=== PATIENT | female | born 1945 | race Caucasian/White ===

== ENCOUNTER → 2018-05-04 02:26 | Outpatient (CLI) | payer MEDICARE, SELFPAY ==
[2018-05-04 11:21] LABS: HCT 41.9 % (36.0-46.0); HGB 13.9 g/dL (12.0-15.5); Mean Corp. HGB Concentration 33.2 g/dL (32.0-36.0); Mean Corpuscular Volume 90.3 fL (80-95); Mean Platelet Volume 10.6 fL (8.0-11.0); Platelet Count 179 x1000/uL (130-400); RBC 4.64 m/cumm (4.00-5.20); RBC Distribution Width 12.6 % (11.7-14.6); White Blood Cell Count 4.83 k/cumm (4.4-10.8)
[2018-05-04 11:33] LABS: Hemoglobin A1C 6.7 % (4.5-6.2)
[2018-05-04 11:41] LABS: ALT 28 U/L (12-78); AST 24 U/L (15-37); Albumin 3.5 g/dL (3.4-5.0); Alkaline Phosphatase 100 U/L (46-116); Anion Gap 9.3 mmol/L (3-11); BUN 20 mg/dL (7-18); Bilirubin, Total 0.6 mg/dL (0.2-1.0); CO2 27.7 mmol/L (21.0-32.0); CREATININE 1.26 mg/dL (0.55-1.02); Calcium 8.7 mg/dL (8.5-10.1); Chloride 105 mmol/L (98-107); Cholesterol 223 mg/dL (50-200); Estimated GFR 41.74 (mL/min/1.73m2); Glucose 113 mg/dL (70-100); HDL Cholesterol 36 mg/dL (40-60); LDL CHOLESTEROL 172 mg/dL (<100); Potassium 3.8 mmol/L (3.5-5.1); Sodium 142 mmol/L (136-145); Total Protein 6.8 g/dL (6.4-8.2); Triglyceride 114 mg/dL (30-150)
== END ==
PROVIDERS: Family Medicine; PCP Family Medicine; Visit Provider Family Medicine
DX: E78.5 Hyperlipidemia, unspecified (principal); E11.9 Type 2 diabetes mellitus without complications; I10 Essential (primary) hypertension
CPT/HCPCS: 36415; 80053; 80061; 83721; 85027; 83036

== ENCOUNTER 2018-08-18 01:12 | Outpatient (CLI) | payer MEDICARE, SELFPAY ==
[2018-08-18 12:24] LABS: ALT 27 U/L (12-78); AST 21 U/L (15-37); Albumin 3.8 g/dL (3.4-5.0); Alkaline Phosphatase 88 U/L (46-116); Anion Gap 10.3 mmol/L (3-11); BUN 25 mg/dL (7-18); Bilirubin, Total 0.9 mg/dL (0.2-1.0); CO2 28.7 mmol/L (21.0-32.0); CREATININE 1.29 mg/dL (0.55-1.02); Calcium 9.1 mg/dL (8.5-10.1); Chloride 102 mmol/L (98-107); Cholesterol 123 mg/dL (50-200); Estimated GFR 40.62 (mL/min/1.73m2); Glucose 99 mg/dL (70-100); HDL Cholesterol 40 mg/dL (40-60); LDL CHOLESTEROL 70 mg/dL (<100); Potassium 3.7 mmol/L (3.5-5.1); Sodium 141 mmol/L (136-145); Total Protein 6.8 g/dL (6.4-8.2); Triglyceride 84 mg/dL (30-150)
[2018-08-18 12:31] LABS: Hemoglobin A1C 5.7 % (4.5-6.2)
[2018-08-18 12:47] LABS: COMMENT (LAB VIEW ONLY) 201.79 mg/dL; Microalb ug/mg Crea 5.1 ug/mg Cr
== END 2018-08-18 01:32 ==
PROVIDERS: PCP Family Medicine
DX: E11.9 Type 2 diabetes mellitus without complications (principal); E78.5 Hyperlipidemia, unspecified; I10 Essential (primary) hypertension
CPT/HCPCS: 36415; 80053; 80061; 83721; 82043; 82570; 83036

== ENCOUNTER → 2018-09-04 07:30 | Outpatient (BNVA) | payer MEDICARE, SELFPAY | PROVIDERS: PCP Family Medicine; Referring Provider Family Medicine; Visit Provider Surgery | DX: K82.9 Disease of gallbladder, unspecified (principal); I10 Essential (primary) hypertension; E11.9 Type 2 diabetes mellitus without complications; Z79.84 Long term (current) use of oral hypoglycemic drugs | CPT/HCPCS: 99212; 99213 ==

== ENCOUNTER 2018-09-10 00:58 | Outpatient (CLI) | payer MEDICARE, SELFPAY ==
--- NOTE | 2018-09-10 08:08 | DI.RAD_ITS ---
SYMPTOM/DIAGNOSIS: RUQ PAIN, GALLBLADDER PROBLEM K82.9 HEPATOBILIARY SCAN: The study was conducted according to the usual protocol with intravenous administration of 5.6 mCi Tc99m mebrofenin A recent ultrasound examination of this patient revealed gallbladder sludge and the possibility of small stones could also not be excluded and the patient was scanned without the use of CCK. The study reveals a normal liver. There is prompt appearance of the radio pharmaceutical in the biliary tree and gallbladder, and proximal and mid small bowel. SUMMARY: Normal hepatobiliary scan. This study essentially excludes the possibility of acute cholecystitis and there is nothing to suggest biliary obstruction on the study.
== END 2018-09-10 01:18 ==
PROVIDERS: PCP Family Medicine; Visit Provider Physical Therapy Assistant
DX: R10.11 Right upper quadrant pain (principal); K82.9 Disease of gallbladder, unspecified
CPT/HCPCS: 78227

== ENCOUNTER 2018-09-16 06:53 | Day surgery (SDC) | payer MEDICARE, SELFPAY ==
[2018-09-16 07:10] VITALS: BP 173/83; PULSE 58; RESP 16; TEMP 36.6; O2SAT 97
[2018-09-16] MEDS: Lactated Ringers 1,000 ML 30 ML IV (07:35)
--- NOTE | 2018-09-16 08:42 | STOM_PTH ---
PATIENT: Eileen Hernandez LOC: [facility] U#:[id number] AGE/SX: 72/F ROOM: RE09/16/[address]: Anurag Olmedo DO : 1945 BED: DIS: 09/16/2018 SPEC #: [id number] RECD: 09/16/18 12:55 STATUS: EMPERATRIZ CRAWLEY #: [id number] LIT: 09/16/18 08:[address]: Anurag Olmedo DEPT: Surgical Specimen RECD BY: Gwen Valderrama ENTERED: 09/16/18 12:55 SP TYPE: STOMACH OTHR DR: Kathy Ham MD Tissues: 1 - STOMACH BIOPSY 2 - ESOPHAGUS BIOPSY Procedures: GROSS AND MICRO LEVEL 4 IMMUNOPEROXIDASE STAIN MIB-1 IHC Semi Quantative % Comments: [id number]
[2018-09-16 09:15] VITALS: BP 151/63; PULSE 52; RESP 16; TEMP 36; O2SAT 99
--- NOTE | 2018-09-16 21:21 | ROE_ITS ---
Date of service: 09/16/18 Time of Service: 08:55 Operative Note DATE OF PROCEDURE: 09/16/18 PRE-OP DIAGNOSIS: RUQ abdominal pain POST-OP DIAGNOSIS: other (Gastritis) PROCEDURE: Esophagogastroduodenoscopy with biopsy by cold forceps SURGEON: Anurag Olmedo ANESTHESIA: MAC (Keon Barrientos CRNA; ASA 2 Mallampati class II) ESTIMATED BLOOD LOSS: 1 PATHOLOGY: other (1. Gastric antral biopsies 2. Biopsy of gastroesophageal junction) COMPLICATIONS: None Patient was transported to: same day Patient's condition: stable Indications: 72 y/o female with a history of a. fib and HTN presents with complaints that 3 weeks ago on Aug.17 she had severe nausea and vomiting with RUQ pain with right sided upper back/shoulder pain. She went to [facility] ER. At which time she was worked up for gall bladder disease. Since that time her symptoms have been well managed with Dramamine. She has not had any nausea or vomiting since that time. She continues to have RUQ discomfort. She denies fevers, chills or night sweats. She denies urinary symptoms. She has not noted any bowel habit changes to include diarrhea, constipation, melena or hematochezia. It was recommended she undergo EGD. The procedure was reviewed with her, and the risks discussed. All her questions were answered to her satisfaction, and consent was obtained to proceed with EGD Findings: On examining the upper gastrointestinal tract from the oropharynx to the third portion of the duodenum, there were inflammatory changes consistent with gastritis of the stomach. The GE junction also was a little irregular and biopsies were taken to rule out Aragon's. Also noted during the procedure was a fair amount of bile that it refluxed into the stomach. Procedure Description: The patient was brought to the procedure room. Monitoring for telemetry, end- tidal CO2, O2 saturation, blood pressure were applied. An appropriate timeout was taken reviewing the patient's identification, allergies, medications,and procedure. A bite was placed, and sedation was titrated for effect by the PUBLIC RELATIONS SUPERVISOR. An Olympus variable stiffness endoscope was advanced from the oropharynx to the third portion of the duodenum without difficulty. The scope was then withdrawn in circumferential manner from the duodenum back to the oropharynx. In performing withdrawal of the scope, the duodenum appeared grossly normal. The scope was withdrawn into the gastric antrum and retroflexed to examine the entire stomach. A large amount of bile was noted to have reflux into the stomach. There were inflammatory changes noted throughout the stomach particularly in the gastric antrum no specific ulcerations were seen. Biopsies were taken for the from the gastric antrum. The scope was then withdrawn to the GE junction which I measured at 34 cm The Z line was at 34 cm and appeared irregular. The irregularity was noncircumferential and did not extend beyond 3 cm and most did not extend beyond 1 cm. Four-quadrant biopsies were taken from the GE junction and submitted for pathology. I withdrew the scope through the remainder of the esophagus all which appear grossly normal. Scope was then withdrawn terminating the upper endoscopy. Plan: There is noted gastritis in the stomach with noted changes consistent with reflux into the esophagus, but I suspect that these are symptoms of her biliary colic, with stones noted on prior ultrasound from August. Recent HIDA scan showed no evidence of acute cholecystitis or biliary obstruction CCK was not performed so there is no ejection fraction measured. I will start her on oral ranitidine, but have discussed with her cholecystectomy given her symptoms ultrasound findings and today's findings I think she would benefit from cholecystectomy I reviewed the risk of the surgery with her and discussed the procedure itself all her questions were answered to her satisfaction she is been scheduled for a cholecystectomy on September 29.
--- NOTE | 2018-09-16 21:38 | W.PM.DSUDISC ---
Discharge Plan Disposition Patient Disposition: HOME Condition: Good Discharge Details Reason For Visit: Right upper quadrant abdominal pain Attending Provider: Anurag Olmedo Primary Care Provider: Kathy Ham Home Meds and New Rx's Prescriptions: Continued dimenhydrinate [Dramamine] 50 mg tablet 50 mg PO Q8H PRN (Reason: nausea and vomiting) Qty: 30 RF: 2 lisinopril-hydrochlorothiazide 20-25 mg tablet 0.5 tab PO DAILY RF: 0 aspirin [Aspirin Low-Strength] 81 MG tablet,chewable 81 mg PO DAILY RF: 0 atorvastatin 40 mg tablet 40 mg PO HS RF: 0 metformin 500 mg tablet 500 mg PO HS RF: 0 Discharge Instructions Instructions: Upper Endoscopy (DC) Stand Alone Forms: DSU Post EGD Instructions, Linda Weinstein (DSU) Activity:: Activity as Tolerated Diet:: As Tolerated Discharge Orders Discharge Orders: Discharge Order (Routine); Ordered 09/16/18 Ordered By: Anurag Olmedo Discharge Data Discharge Date/Time-TO BE ENTERED AT DEPARTURE: 09/16/18 09:15 DS: Diagnosis Discharge Diagnosis (1) Gallbladder Problem: Status: Acute
== END 2018-09-16 09:15 | disposition home or self-care (01) ==
PROVIDERS: PCP Family Medicine; Visit Provider Surgery
PROC: 0DJ68ZZ Inspection of Stomach, Via Natural or Artificial Opening Endoscopic (ICD-10-PCS; CPT 43235; principal; 2018-09-16 08:15)
DX: R10.11 Right upper quadrant pain (principal); K29.70 Gastritis, unspecified, without bleeding; B96.81 Helicobacter pylori [H. pylori] as the cause of diseases classified elsewhere; K21.0 Gastro-esophageal reflux disease with esophagitis; E11.9 Type 2 diabetes mellitus without complications; K21.9 Gastro-esophageal reflux disease without esophagitis; I10 Essential (primary) hypertension; Z79.84 Long term (current) use of oral hypoglycemic drugs
CPT/HCPCS: 43239; 88305; 88360; 88361

== ENCOUNTER 2018-11-30 12:12 | Outpatient (CLI) | payer MEDICARE, SELFPAY ==
--- NOTE | 2018-11-30 10:00 | DI.RAD_ITS ---
SYMPTOMS/DIAGNOSIS: PAIN MID THORACIC SPINE, NO TRAUMA, WEIGHT LOSS, M54.6 THORACIC SPINE: AP and lateral views. Comparison chest x-ray is 04/28/11. There is normal alignment of the thoracic spine. No acute fractures or subluxations are seen. Mild to moderate degenerative changes are seen in the thoracic spine with disc space narrowing and endplate osteophytes present. The findings are most marked in the mid thoracic spine. No acute fractures or subluxations are seen. IMPRESSION: Mild to moderate degenerative changes of the thoracic spine.
== END 2018-11-30 12:32 ==
PROVIDERS: PCP Family Medicine; Visit Provider Family Medicine
DX: M54.6 Pain in thoracic spine (principal); M47.814 Spondylosis without myelopathy or radiculopathy, thoracic region; R63.4 Abnormal weight loss
CPT/HCPCS: 72072

== ENCOUNTER 2019-01-25 11:33 | Outpatient (CLI) | payer MEDICARE, SELFPAY ==
[2019-01-25 13:41] LABS: ALT 29 U/L (12-78); AST 25 U/L (15-37); Albumin 3.6 g/dL (3.4-5.0); Alkaline Phosphatase 94 U/L (46-116); Anion Gap 12.4 mmol/L (3-11); BUN 19 mg/dL (7-18); Bilirubin, Total 0.7 mg/dL (0.2-1.0); CO2 25.6 mmol/L (21.0-32.0); CREATININE 1.23 mg/dL (0.55-1.02); Chloride 105 mmol/L (98-107); Glucose 95 mg/dL (70-100); Potassium 3.7 mmol/L (3.5-5.1); Sodium 143 mmol/L (136-145)
[2019-01-25 15:29] LABS: Prothrombin Time 10.3 sec (9.3-11.0)
== END 2019-01-25 11:53 ==
PROVIDERS: PCP Family Medicine; Visit Provider Family Medicine
DX: E11.9 Type 2 diabetes mellitus without complications (principal); I10 Essential (primary) hypertension; I48.0 Paroxysmal atrial fibrillation; Z79.01 Long term (current) use of anticoagulants
CPT/HCPCS: 36415; 80053; 83036; 85610

== ENCOUNTER 2019-01-29 02:18 | Outpatient (CLI) | payer MEDICARE, SELFPAY ==
[2019-01-29 16:40] LABS: Prothrombin Time 51.8 sec (9.3-11.0)
[2019-01-29 16:51] LABS: INR 5.1 (0.9-1.1)
== END 2019-01-29 02:38 ==
PROVIDERS: PCP Family Medicine; Visit Provider Family Medicine
DX: I48.91 Unspecified atrial fibrillation (principal); Z79.01 Long term (current) use of anticoagulants
CPT/HCPCS: 36415; 85610

== ENCOUNTER 2019-02-01 02:50 | Outpatient (CLI) | payer MEDICARE, SELFPAY ==
[2019-02-01 08:10] LABS: INR 3.8 (0.9-1.1); Prothrombin Time 38.4 sec (9.3-11.0)
== END 2019-02-01 03:10 ==
PROVIDERS: PCP Family Medicine; Visit Provider Family Medicine
DX: I48.91 Unspecified atrial fibrillation (principal); Z79.01 Long term (current) use of anticoagulants
CPT/HCPCS: 36415; 85610

== ENCOUNTER 2019-02-03 02:28 | Outpatient (CLI) | payer MEDICARE, SELFPAY ==
[2019-02-03 16:58] LABS: INR 1.7 (0.9-1.1); Prothrombin Time 17.2 sec (9.3-11.0)
== END 2019-02-03 02:48 ==
PROVIDERS: PCP Family Medicine; Visit Provider Family Medicine
DX: I48.91 Unspecified atrial fibrillation (principal); Z79.01 Long term (current) use of anticoagulants
CPT/HCPCS: 36415; 85610

== ENCOUNTER 2019-02-09 02:19 | Outpatient (CLI) | payer MEDICARE, SELFPAY ==
[2019-02-09 11:42] LABS: INR 1.1 (0.9-1.1); Prothrombin Time 10.9 sec (9.3-11.0)
== END 2019-02-09 02:39 ==
PROVIDERS: PCP Family Medicine; Visit Provider Family Medicine
DX: I48.91 Unspecified atrial fibrillation (principal); Z79.01 Long term (current) use of anticoagulants
CPT/HCPCS: 36415; 85610

== ENCOUNTER 2019-02-12 02:03 | Outpatient (CLI) | payer MEDICARE, SELFPAY ==
[2019-02-12 16:55] LABS: INR 1.1 (0.9-1.1); Prothrombin Time 10.6 sec (9.3-11.0)
== END 2019-02-12 02:23 ==
PROVIDERS: PCP Family Medicine; Visit Provider Family Medicine
DX: I48.91 Unspecified atrial fibrillation (principal); Z79.01 Long term (current) use of anticoagulants
CPT/HCPCS: 36415; 85610

== ENCOUNTER 2019-02-16 02:52 | Outpatient (CLI) | payer MEDICARE, SELFPAY ==
[2019-02-16 11:15] LABS: INR 1.1 (0.9-1.1); Prothrombin Time 10.5 sec (9.3-11.0)
== END 2019-02-16 03:12 ==
PROVIDERS: PCP Family Medicine; Visit Provider Family Medicine
DX: I48.91 Unspecified atrial fibrillation (principal); Z79.01 Long term (current) use of anticoagulants
CPT/HCPCS: 36415; 85610

== ENCOUNTER 2019-02-22 02:22 | Outpatient (CLI) | payer MEDICARE, SELFPAY ==
[2019-02-22 10:54] LABS: INR 2.8 (0.9-1.1); Prothrombin Time 28.7 sec (9.3-11.0)
== END 2019-02-22 02:42 ==
PROVIDERS: PCP Family Medicine; Visit Provider Family Medicine
DX: I48.91 Unspecified atrial fibrillation (principal); Z79.01 Long term (current) use of anticoagulants
CPT/HCPCS: 36415; 99203; 85610

== ENCOUNTER 2019-02-22 10:10 | Outpatient (CLI) | payer MEDICARE, SELFPAY ==
--- NOTE | 2019-02-22 10:09 | DI.RAD_ITS ---
SYMPTOM/DIAGNOSIS: EVAL RT SHOULDER AND SCAPULAR PAIN RIGHT SHOULDER: Four views. There are mild hypertrophic change seen at the acromioclavicular joint. Small cysts are seen in the subchondral bone of the glenoid. No destructive changes or erosions are seen. The glenohumeral joint is otherwise well maintained. The bones appear intact and normally mineralized. There appears to be an os acromial. Well corticated osseous densities seen superior to the acromioclavicular joint. The soft tissues are otherwise unremarkable. IMPRESSION: Degenerative changes of the right shoulder. No acute abnormality. The findings were discussed with Dr. Boone on the date of the examination.
== END 2019-02-22 10:30 ==
PROVIDERS: PCP Family Medicine; Visit Provider Student in an Organized Health Care Education/Training Program
DX: M25.511 Pain in right shoulder (principal); M19.011 Primary osteoarthritis, right shoulder; I48.91 Unspecified atrial fibrillation; Z79.01 Long term (current) use of anticoagulants; G25.89 Other specified extrapyramidal and movement disorders; M75.81 Other shoulder lesions, right shoulder; E11.9 Type 2 diabetes mellitus without complications; I10 Essential (primary) hypertension
CPT/HCPCS: 36415; 99203; 99214; 73030; 85610

== ENCOUNTER 2019-03-01 02:06 | Outpatient (CLI) | payer MEDICARE, SELFPAY ==
[2019-03-01 16:06] LABS: INR 7.9 (0.9-1.1)
== END 2019-03-01 02:26 ==
PROVIDERS: PCP Family Medicine; Visit Provider Family Medicine
DX: I48.91 Unspecified atrial fibrillation (principal); Z79.01 Long term (current) use of anticoagulants
CPT/HCPCS: 36415; 85610

== ENCOUNTER 2019-03-03 07:21 | Outpatient (CLI) | payer MEDICARE, SELFPAY ==
[2019-03-03 16:08] LABS: INR 1.2 (0.9-1.1); Prothrombin Time 12.4 sec (9.3-11.0)
== END 2019-03-03 07:41 ==
PROVIDERS: PCP Family Medicine; Visit Provider Family Medicine
DX: I48.91 Unspecified atrial fibrillation (principal); Z79.01 Long term (current) use of anticoagulants
CPT/HCPCS: 36415; 85610

== ENCOUNTER 2019-03-08 02:23 | Outpatient (CLI) | payer MEDICARE, SELFPAY ==
[2019-03-08 14:35] LABS: Prothrombin Time 19.6 sec (9.3-11.0)
[2019-03-08 15:01] LABS: INR 1.9 (0.9-1.1)
== END 2019-03-08 02:43 ==
PROVIDERS: PCP Family Medicine; Visit Provider Family Medicine
DX: I48.91 Unspecified atrial fibrillation (principal); Z79.01 Long term (current) use of anticoagulants
CPT/HCPCS: 36415; 85610

== ENCOUNTER 2019-03-22 01:39 | Outpatient (CLI) | payer MEDICARE, SELFPAY ==
[2019-03-22 07:52] LABS: INR 1.2 (0.9-1.1); Prothrombin Time 11.6 sec (9.3-11.0)
== END 2019-03-22 01:59 ==
PROVIDERS: PCP Family Medicine; Visit Provider Family Medicine
DX: I48.91 Unspecified atrial fibrillation (principal); Z79.01 Long term (current) use of anticoagulants
CPT/HCPCS: 36415; 85610

== ENCOUNTER 2019-03-30 02:39 | Outpatient (CLI) | payer MEDICARE, SELFPAY ==
[2019-03-30 13:08] LABS: INR 1.3 (0.9-1.1); Prothrombin Time 13.4 sec (9.3-11.0)
== END 2019-03-30 02:59 ==
PROVIDERS: PCP Family Medicine; Visit Provider Family Medicine
DX: I48.91 Unspecified atrial fibrillation (principal); Z79.01 Long term (current) use of anticoagulants
CPT/HCPCS: 36415; 85610

== ENCOUNTER → 2019-04-05 07:37 | Outpatient (BNVA) | payer MEDICARE, SELFPAY | PROVIDERS: PCP Family Medicine; Referring Provider Family Medicine; Visit Provider Student in an Organized Health Care Education/Training Program | DX: M25.511 Pain in right shoulder (principal); G56.01 Carpal tunnel syndrome, right upper limb; I10 Essential (primary) hypertension; E11.9 Type 2 diabetes mellitus without complications | CPT/HCPCS: 99214 ==

== ENCOUNTER 2019-04-06 01:35 | Outpatient (CLI) | payer MEDICARE, SELFPAY ==
[2019-04-06 15:16] LABS: INR 3.5 (0.9-1.1); Prothrombin Time 35.9 sec (9.3-11.0)
== END 2019-04-06 01:55 ==
PROVIDERS: PCP Family Medicine; Visit Provider Family Medicine
DX: I48.91 Unspecified atrial fibrillation (principal); Z79.01 Long term (current) use of anticoagulants
CPT/HCPCS: 36415; 85610

== ENCOUNTER 2019-04-13 01:30 | Outpatient (CLI) | payer MEDICARE, SELFPAY ==
[2019-04-13 13:37] LABS: INR 3.9 (0.9-1.1); Prothrombin Time 39.3 sec (9.3-11.0)
== END 2019-04-13 01:50 ==
PROVIDERS: PCP Family Medicine; Visit Provider Family Medicine
DX: I48.91 Unspecified atrial fibrillation (principal); Z79.01 Long term (current) use of anticoagulants
CPT/HCPCS: 36415; 85610

== ENCOUNTER 2019-04-20 01:31 | Outpatient (CLI) | payer MEDICARE, SELFPAY | END 2019-04-20 01:51 | PROVIDERS: PCP Family Medicine; Visit Provider Family Medicine | DX: I48.91 Unspecified atrial fibrillation (principal); Z79.01 Long term (current) use of anticoagulants | CPT/HCPCS: 36415; 85610 ==

== ENCOUNTER 2019-05-03 01:53 | Outpatient (CLI) | payer MEDICARE, SELFPAY ==
[2019-05-03 09:24] LABS: Prothrombin Time > 83.4 sec (9.3-11.0)
== END 2019-05-03 02:13 ==
PROVIDERS: PCP Family Medicine; Visit Provider Family Medicine
DX: I48.91 Unspecified atrial fibrillation (principal); Z79.01 Long term (current) use of anticoagulants
CPT/HCPCS: 36415; 85610

== ENCOUNTER 2019-05-05 14:42 | Outpatient (CLI) | payer MEDICARE, SELFPAY ==
[2019-05-05 15:09] LABS: INR 2.8 (0.9-1.1); Prothrombin Time 28.5 sec (9.3-11.0)
== END 2019-05-05 15:02 ==
PROVIDERS: PCP Family Medicine; Visit Provider Family Medicine
DX: I48.91 Unspecified atrial fibrillation (principal); Z79.01 Long term (current) use of anticoagulants
CPT/HCPCS: 36415; 85610

== ENCOUNTER 2019-05-07 03:35 | Outpatient (CLI) | payer MEDICARE, SELFPAY ==
[2019-05-07 15:26] LABS: INR 2.6 (0.9-1.1); Prothrombin Time 26.1 sec (9.3-11.0)
== END 2019-05-07 03:55 ==
PROVIDERS: PCP Family Medicine; Visit Provider Family Medicine
DX: I48.91 Unspecified atrial fibrillation (principal); Z79.01 Long term (current) use of anticoagulants
CPT/HCPCS: 36415; 85610

== ENCOUNTER 2019-05-10 01:58 | Outpatient (CLI) | payer MEDICARE, SELFPAY ==
[2019-05-10 08:44] LABS: INR 3.7 (0.9-1.1); Prothrombin Time 37.1 sec (9.3-11.0)
== END 2019-05-10 02:18 ==
PROVIDERS: PCP Family Medicine; Visit Provider Family Medicine
DX: I48.91 Unspecified atrial fibrillation (principal); Z79.01 Long term (current) use of anticoagulants
CPT/HCPCS: 36415; 85610

== ENCOUNTER 2019-05-12 02:40 | Outpatient (CLI) | payer MEDICARE, SELFPAY ==
[2019-05-12 15:51] LABS: INR 1.7 (0.9-1.1); Prothrombin Time 17.2 sec (9.3-11.0)
== END 2019-05-12 03:00 ==
PROVIDERS: PCP Family Medicine; Visit Provider Family Medicine
DX: I48.91 Unspecified atrial fibrillation (principal)
CPT/HCPCS: 36415; 85610

== ENCOUNTER 2019-05-14 08:40 | Outpatient (CLI) | payer MEDICARE, SELFPAY ==
--- NOTE | 2019-05-14 08:05 | HPE_ITS ---
Assessment and Plan (1) Carpal tunnel syndrome of right wrist: Current visit: No Status: Chronic Plan: Educated patient on surgery covering surgical technique, recovery process, benefits and risks including but not limited to risk of infection, blood clot, damage to soft tissue/blood vessels/nerves in detail. After discussion patient gives verbal understanding of risks and elects to proceed with scheduling surgery. Patient had opportunity to have questions answered to their satisfaction. They will contact office if issues arise. Patient will continue to be scheduled for right ECTR with Dr. Boone. History of Present Illness Narrative: Ms. Hernandez is 73-year-old right hand dominant female who presents to clinic with her for pre-operative visit for scheduled right ECTR with Dr. Boone. Patient has been having symptoms for greater than one year. Reports constant numbness and tingling affecting her right index and middle fingers; denies symptoms in her thumb. She tried to treat symptoms by wearing wrist brace at night which helped to reduce her nighttime symptoms. She denies waking up at night due to symptoms. Unfortunately, she continues to have symptoms that affect her daily life. Due to the constant numbness and tingling she has difficultly moving her hands in the morning, getting money out of mendoza drawer and doing fine motor skills. Occasionally she will drop coins and has slight difficulty with buttoning shirts. Due to her symptoms she was offered surgical intervention and elected to proceed. Pertinent Surgical Information Patient's past medical history is significant for paroxysmal atrial fibrillation. She is currently on chronic anticoagulation of warfarin 2.5 mg p.o. daily; reports 6 days weekly. Spoke with patient's PCP office to discuss holding warfarin for surgery. Nurse at PCP office spoke with provider covering for Dr. Ham and stated she will hold warfarin for 4 days and have labs completed day prior as well as day of surgery. She will resume following surgery. PCP office was going to call patient to make her aware. Denies past medical history of: stroke, angina, asthma, COPD, sleep apnea, renal issues, liver issues, hepatitis, gastrointestinal ulcers, bleeding disorders, seizures, migraines, anxiety, depression, autoimmune disorders, thyroid issues Denies prior complications from surgery or anesthesia. Review of Systems Constitutional Denies fever(s), Denies frequent falls and Denies headache(s) Eyes Denies change in vision ENT Denies dizziness, Denies ear discharge, Denies headache(s), Denies epistaxis, Denies nasal discharge and Denies sore throat Cardiovascular Denies chest pain, Denies rapid heart rate, Denies irregular heart rhythm, Reports palpitations (on occasion; denies any recent changes), Denies dyspnea, Denies dyspnea on exertion, Denies orthopnea, Denies paroxysmal nocturnal dyspnea and Denies slow heart rate Respiratory Denies cough, Denies dyspnea, Denies dyspnea on exertion and Denies wheezing Gastrointestinal Denies abdominal pain, Denies melena, Denies hematochezia, Denies constipation, Denies diarrhea, Denies nausea and Denies vomiting Genitourinary Denies hematuria, Denies dysuria and Denies urinary urgency Musculoskeletal Reports as per HPI, Denies numbness and Denies tingling Neurologic Denies dizziness, Denies frequent falls, Denies headache(s), Denies numbness and Denies tingling Psychiatric Denies anxiety and Denies depression Endocrine Reports palpitations (on occasion; denies any recent changes) Allergic/Immunologic Denies wheezing [facility] Medical History (Updated 05/14/19 @ 15:48 by Estrella Padilla) Abnormal findings on esophagogastroduodenoscopy (EGD) (Acute 09/16/18) EGD with Dr Olmedo, then followed by Dr Vallecillo, [place] [facility] [facility] [place]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 2 smoking siblings with CAD in 60's. Gout (Inactive) Hyperlipidemia (Chronic 04/07/13) Paroxysmal atrial fibrillation (Chronic) Surgical History (Updated 05/14/19 @ 15:46 by Estrella Padilla) Endometrial Biopsy [facility]-ADENOCARCINOMA, EDONMETRIAL TYPE, FIGO GARDE 1, WITH MUCINOUS FEATURES. 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[employer] [place] Do you feel safe at home: Yes Do you feel safe in your relationship?: Yes Meds Home Medications Medication Instructions Recorded Confirmed Type lisinopril 20 0.5 tab PO DAILY 09/04/18 05/14/19 History mg-hydrochlorothiazide 25 mg tablet omeprazole 40 mg capsule,delayed 40 mg PO DAILY #30 cap 01/25/19 05/14/19 Rx release warfarin 5 mg tablet 2.5 mg PO DAILY #30 tab 01/25/19 05/14/19 Rx atorvastatin 40 mg tablet 40 mg PO HS #90 tab 03/22/19 05/14/19 Rx metformin 500 mg tablet 500 mg PO HS #90 tab 03/30/19 05/14/19 Rx phytonadione (vitamin K1) 5 mg 2.5 mg PO ONCE #1 tab 05/03/19 05/14/19 Rx tablet Allergies Allergy/AdvReac Type Severity Reaction Status Date / Time Penicillins AdvReac Intermediate Rash Verified 05/14/19 15:39 bandaids AdvReac Uncoded 05/14/19 15:39 Exam Const General: cooperative and no acute distress [facility] Head: normal to inspection, normocephalic and atraumatic Ears: external ears normal General nose exam: external nose normal and no nasal discharge Face and sinus: face symmetric Mouth: oral mucosae normal, lip normal, tongue normal and moist mucous membranes Teeth and gingiva: dentition normal Throat: posterior oropharynx normal Eyes General: appearance normal, both eyes and all related structures Pupils: PERRL and irregular (due to 2 eye surgeries) on the right EOM: EOM intact bilaterally Neck Neck: trachea midline Carotids: normal carotid upstroke Lymphatic: no lymphadenopathy noted Resp Effort & Inspection: normal respiratory effort and able to speak in complete sentences Auscultation: clear to auscultation bilaterally, no rales, no rhonchi and no wheezes Cardio Heart Sounds: S1 normal, S2 normal and no murmurs Pulses: radial pulses present bilaterally GI Palpation: soft, no hepatosplenomegaly and nontender Auscultation: normal bowel sounds Skin General skin exam: no rashes or lesions noted
== END 2019-05-14 09:00 ==
PROVIDERS: PCP Family Medicine; Visit Provider Student in an Organized Health Care Education/Training Program
DX: Z01.818 Encounter for other preprocedural examination (principal); G56.01 Carpal tunnel syndrome, right upper limb; E11.9 Type 2 diabetes mellitus without complications; I10 Essential (primary) hypertension
CPT/HCPCS: NC

== ENCOUNTER 2019-05-18 01:16 | Outpatient (CLI) | payer MEDICARE, SELFPAY ==
[2019-05-18 12:59] LABS: INR 1.1 (0.9-1.1); Prothrombin Time 11.1 sec (9.3-11.0)
== END 2019-05-18 01:36 ==
PROVIDERS: PCP Family Medicine; Visit Provider Family Medicine
DX: I48.91 Unspecified atrial fibrillation (principal); Z79.01 Long term (current) use of anticoagulants
CPT/HCPCS: 36415; 85610

== ENCOUNTER 2019-05-19 10:15 | Day surgery (SDC) | payer MEDICARE, SELFPAY ==
[2019-05-14 08:52] VITALS: BP 133/91; PULSE 48; RESP 16; TEMP 36.7; O2SAT 100
[2019-05-19 10:51] VITALS: BP 136/85; PULSE 64; RESP 16; TEMP 36.6; O2SAT 100
[2019-05-19] MEDS: Lactated Ringers 1,000 ML 80 ML IV (12:30)
--- NOTE | 2019-05-19 12:54 | W.PM.DSUDISC ---
Discharge Plan Disposition Patient Disposition: HOME Condition: Good Discharge Details Reason For Visit: Right Carpal Tunnel Attending Provider: Smooth Boone Primary Care Provider: Kathy Ham Home Meds and New Rx's Prescriptions: New hydrocodone-acetaminophen 5-325 mg tablet 1 tab PO Q8H PRN PRN (Reason: pain) Qty: 4 RF: 0 acetaminophen 500 mg tablet 500 mg PO Q6H PRN PRN (Reason: pain) Qty: 60 RF: 3 ibuprofen 400 mg tablet 400 mg PO Q8H PRN (Reason: pain) Qty: 30 RF: 0 Continued lisinopril-hydrochlorothiazide 20-25 mg tablet 0.5 tab PO DAILY RF: 0 omeprazole 40 mg capsule,delayed release(DR/EC) 40 mg PO DAILY Qty: 30 RF: 6 warfarin [Coumadin] 5 mg tablet 2.5 mg PO DAILY Qty: 30 RF: 3 atorvastatin 40 mg tablet 40 mg PO HS Qty: 90 RF: 4 metformin 500 mg tablet 500 mg PO HS Qty: 90 RF: 4 phytonadione (vitamin K1) 5 mg tablet 2.5 mg PO ONCE Qty: 1 RF: 0 Discharge Instructions Stand Alone Forms: Joshuaa Tutu. Tunnel Release Referrals: Smooth Boone MD [ [facility] STAFF PHYSICIAN] - Equipment/Supplies: Sling Activity:: Elevate Remove Dressings/Wound Care:: 48 hours Shower/Bathe:: 48 hours Diet:: As Tolerated Discharge Orders Discharge Orders: Discharge Order (Routine); Ordered 05/19/19 Ordered By: Smooth Boone DS: Diagnosis Discharge Diagnosis (1) Carpal tunnel syndrome of right wrist: Status: Chronic
[2019-05-19] MEDS: ceFAZolin 2 GM/50 ML BAG IVPB (13:15)
[2019-05-19] MEDS: Sodium Bicarbonate 50 MEQ/50 ML VIAL (13:20)
[2019-05-19] MEDS: Lidocaine 1% Multi-Dose 50 ML VIAL (13:20)
--- NOTE | 2019-05-19 13:45 | W.PM.OP ---
Date of service: 05/19/19 Time of Service: 13:45 Operative Note DATE OF PROCEDURE: 05/19/19 PRE-OP DIAGNOSIS: Right Carpal Tunnel Syndrome POST-OP DIAGNOSIS: same PROCEDURE: Right Endoscopic Carpal Tunnel Release SURGEON: Smooth Boone ANESTHESIA: GETDuke ESTIMATED BLOOD LOSS: 0 PATHOLOGY: none sent TOURNIQUET TIME: 4 COMPLICATIONS: None Patient was transported to: same day Patient's condition: stable Indications: I have seen Eileen in clinic for symptoms of carpal tunnel syndrome. The numbness, tingling, and pain limited function. Clinical exam findings with nerve conduction tests confirmed the diagnosis of carpal tunnel syndrome. Nonoperative measures such as bracing, time, activity modifications had been tried but disability and pain persisted. I discussed carpal tunnel release with the patient. I reviewed the risks of the procedure to include, but not limited to, bleeding, infection, pain, stiffness, incomplete release, damage to nerves or vessels, persistent numbness, recurrence. Despite these risks, the patient elected to proceed. Findings: There was tightened carpal tunnel. This was dilated and released successfully with the endoscopic with increased space within the tunnel. The antebrachial fascia was released proximally freeing the median nerve at the wrist. Procedure Description: Eileen was greeted in the preoperative holding area where the correct side was identified and marked. The consent was reviewed with the patient and signed. The history and physical was updated. All questions were answered. Eileen was taken back to the operating room. The patient was placed into the supine position on the operating room table with the right arm on an arm board. All bony prominences were well padded. Prophylactic antibiotics in the form of Cefazolin were administered. The right arm was then prepped with Chloraprep and draped in a standard fashion with stockinette and extremity drape. A timeout to confirm correct identity, side and site, procedure, allergies, anesthesia, and medical concerns was performed. The surgical site was marked in the volar wrist creases in line with the radial border of the fourth ray. This area was anesthetized with approximately 6cc of 1% Lidocaine. The limb was then exsanguinated with an Esmarch. A forearm Esmarch tourniquet was used as the only IV access was in the antecubital space of the operative side. The skin was incised with a 15 blade, approximately 1cm. The skin only was cut and the deeper tissue was dissected bluntly with a tenotomy scissor, avoiding passing nerve and venous structures. The fascia was penetrated and opened bluntly. A two-prong skin hook was placed under this proximal fascial edge. A series of hamate finders were used to identify and dilate the carpal tunnel. Synovial elevator was used to free synovial attachments to the underside of the transverse carpal ligament. My thumb was kept in the palm to chiquis the distal extent of the carpal tunnel and correctly position the hand. The Microaire endoscope was inserted without difficulty and without resistance. Excellent visualization showed horizontally running fibers of the transverse carpal ligament (TCL). The distal extent of the TCL was visualized and the end of the scope palpated with the thumb. The blade was elevated and withdrawn from distal to proximal. The TCL was split into two flaps. The endoscope was reinserted to confirm complete release and any remnant ligament was incised. The scope was withdrawn and the proximal aspect of the carpal tunnel was grossly inspected and appeared release with the median nerve visible. The antebrachial fascia at the level of the wrist was then freed from the overlying skin and then the underlying median nerve with blunt dissection. This was transected longitudinally for about 3cm proximal to the wrist incision. The wound was then irrigated with easy flow of irrigant distally and proximally. The incision was closed with a single 4-0 Nylon suture. The wound was dressed with Xeroform, Gauze, Kerlix and Lawson. The tourniquet was deflated with the initial dressing and held with some pressure. Blood flow returned easily to all digits with capillary refill less than 2 seconds. The patient tolerated the procedure well and was returned to the Same Day Surgery area in a stable condition suffering no known complication.
[2019-05-19 14:05] VITALS: BP 141/76; PULSE 50; RESP 16; TEMP 36.5; O2SAT 97
--- NOTE | 2019-05-20 06:48 | W.PM.OP ---
Date of service: 05/19/19 Time of Service: 13:48 Operative Note DATE OF PROCEDURE: 05/19/19 PRE-OP DIAGNOSIS: Right Carpal Tunnel Syndrome POST-OP DIAGNOSIS: same PROCEDURE: Right Endoscopic Carpal Tunnel Release SURGEON: Smooth Boone ANESTHESIA: GETDuke ESTIMATED BLOOD LOSS: 0 PATHOLOGY: none sent TOURNIQUET TIME: 4 COMPLICATIONS: None Patient was transported to: same day Patient's condition: stable Implants: Right Endoscopic Carpal Tunnel Release Indications: I have seen [NAME] in clinic for symptoms of carpal tunnel syndrome. The numbness, tingling, and pain limited function. Clinical exam findings [with nerve conduction tests ]confirmed the diagnosis of carpal tunnel syndrome. Nonoperative measures such as bracing, time, activity modifications had been tried but disability and pain persisted. I discussed carpal tunnel release with the patient. I reviewed the risks of the procedure to include, but not limited to, bleeding, infection, pain, stiffness, incomplete release, damage to nerves or vessels, persistent numbness, recurrence. Despite these risks, the patient elected to proceed. Findings: There was tightened carpal tunnel. This was dilated and released successfully with the endoscopic with increased space within the tunnel. The antebrachial fascia was released proximally freeing the median nerve at the wrist. Procedure Description: [NAME] was greeted in the preoperative holding area where the correct side was identified and marked. The consent was reviewed with the patient and signed. The history and physical was updated. All questions were answered. [NAME] was taken back to the operating room. The patient was placed into the supine position on the operating room table with the right arm on an arm board. A nonsterile tourniquet was placed high onto the arm. All bony prominences were well padded. Prophylactic antibiotics in the form of [Cefazolin] were administered. The right arm was then prepped with Chloraprep and draped in a standard fashion with stockinette and extremity drape. A timeout to confirm correct identity, side and site, procedure, allergies, anesthesia, and medical concerns was performed. The surgical site was marked in the volar wrist creases in line with the radial border of the fourth ray. This area was anesthetized with approximately 6cc of 1% Lidocaine. The limb was then exsanguinated with an Esmarch. The skin was incised with a 15 blade, approximately 1cm. The skin only was cut and the deeper tissue was dissected bluntly with a tenotomy scissor, avoiding passing nerve and venous structures. The fascia was penetrated and opened bluntly. A two-prong skin hook was placed under this proximal fascial edge. A series of hamate finders were used to identify and dilate the carpal tunnel. Synovial elevator was used to free synovial attachments to the underside of the transverse carpal ligament. My thumb was kept in the palm to chiquis the distal extent of the carpal tunnel and correctly position the hand. The Microaire endoscope was inserted without difficulty and without resistance. Excellent visualization showed horizontally running fibers of the transverse carpal ligament (TCL). The distal extent of the TCL was visualized and the end of the scope palpated with the thumb. The blade was elevated and withdrawn from distal to proximal. The TCL was split into two flaps. The endoscope was reinserted to confirm complete release and any remnant ligament was incised. The scope was withdrawn and the proximal aspect of the carpal tunnel was grossly inspected and appeared release with the median nerve visible. The antebrachial fascia at the level of the wrist was then freed from the overlying skin and then the underlying median nerve with blunt dissection. This was transected longitudinally for about 3cm proximal to the wrist incision. The wound was then irrigated with easy flow of irrigant distally and proximally. The incision was closed with a single 4-0 Nylon suture. The wound was dressed with Xeroform, Gauze, Kerlix and Lawson. The tourniquet was deflated with the initial dressing and held with some pressure. Blood flow returned easily to all digits with capillary refill less than 2 seconds. The patient tolerated the procedure well and was returned to the Same Day Surgery area in a stable condition suffering no known complication.
== END 2019-05-19 14:41 | disposition home or self-care (01) ==
PROVIDERS: PCP Family Medicine; Visit Provider Student in an Organized Health Care Education/Training Program
PROC: 01N54ZZ Release Median Nerve, Percutaneous Endoscopic Approach (ICD-10-PCS; CPT 29848; principal; 2019-05-19 12:30)
DX: G56.01 Carpal tunnel syndrome, right upper limb (principal); I48.0 Paroxysmal atrial fibrillation; Z79.01 Long term (current) use of anticoagulants
CPT/HCPCS: 29848; J0690; J2250; J3010; L3650

== ENCOUNTER 2019-05-25 00:45 | Outpatient (CLI) | payer MEDICARE, SELFPAY ==
[2019-05-25 16:06] LABS: INR 2.2 (0.9-1.1); Prothrombin Time 22.4 sec (9.3-11.0)
== END 2019-05-25 01:05 ==
PROVIDERS: PCP Family Medicine; Visit Provider Family Medicine
DX: I48.91 Unspecified atrial fibrillation (principal); Z79.01 Long term (current) use of anticoagulants
CPT/HCPCS: 36415; 85610

== ENCOUNTER 2019-05-31 09:46 | Outpatient (CLI) | payer MEDICARE, SELFPAY ==
[2019-05-31 13:55] LABS: INR 2.2 (0.9-1.1); Prothrombin Time 21.9 sec (9.3-11.0)
== END 2019-05-31 10:06 ==
PROVIDERS: PCP Family Medicine; Visit Provider Family Medicine
DX: I48.91 Unspecified atrial fibrillation (principal); Z79.01 Long term (current) use of anticoagulants; Z47.89 Encounter for other orthopedic aftercare; G56.01 Carpal tunnel syndrome, right upper limb
CPT/HCPCS: 85610

== ENCOUNTER 2019-06-15 01:37 | Outpatient (CLI) | payer MEDICARE, SELFPAY ==
[2019-06-15 08:34] LABS: INR 1.5 (0.9-1.1); Prothrombin Time 15.4 sec (9.3-11.0)
== END 2019-06-15 01:57 ==
PROVIDERS: PCP Family Medicine; Visit Provider Family Medicine
DX: I48.91 Unspecified atrial fibrillation (principal); Z79.01 Long term (current) use of anticoagulants
CPT/HCPCS: 36415; 85610

== ENCOUNTER 2019-06-21 02:41 | Outpatient (CLI) | payer MEDICARE, SELFPAY ==
[2019-06-21 10:13] LABS: Prothrombin Time 23.1 sec (9.3-11.0)
[2019-06-21 10:23] LABS: INR 2.3 (0.9-1.1)
== END 2019-06-21 03:01 ==
PROVIDERS: PCP Family Medicine; Visit Provider Family Medicine
DX: I48.91 Unspecified atrial fibrillation (principal); Z79.01 Long term (current) use of anticoagulants
CPT/HCPCS: 36415; 85610

== ENCOUNTER 2019-07-06 02:10 | Outpatient (CLI) | payer MEDICARE, SELFPAY ==
[2019-07-06 09:06] LABS: INR 1.6 (0.9-1.1); Prothrombin Time 16.3 sec (9.3-11.0)
== END 2019-07-06 02:30 ==
PROVIDERS: PCP Family Medicine; Visit Provider Family Medicine
DX: I48.91 Unspecified atrial fibrillation (principal); Z79.01 Long term (current) use of anticoagulants
CPT/HCPCS: 36415; 85610

== ENCOUNTER 2019-07-15 02:18 | Outpatient (CLI) | payer MEDICARE, SELFPAY ==
[2019-07-15 07:36] LABS: INR 2.1 (0.9-1.1); Prothrombin Time 20.3 sec (9.3-11.0)
== END 2019-07-15 02:38 ==
PROVIDERS: PCP Family Medicine; Visit Provider Family Medicine
DX: I48.91 Unspecified atrial fibrillation (principal); Z79.01 Long term (current) use of anticoagulants
CPT/HCPCS: 36415; 85610

== ENCOUNTER 2019-07-26 01:34 | Outpatient (CLI) | payer MEDICARE, SELFPAY ==
[2019-07-26 08:29] LABS: INR 1.7 (0.9-1.1); Prothrombin Time 16.7 sec (9.3-11.0)
== END 2019-07-26 01:54 ==
PROVIDERS: PCP Family Medicine; Visit Provider Family Medicine
DX: I48.91 Unspecified atrial fibrillation (principal); Z79.01 Long term (current) use of anticoagulants
CPT/HCPCS: 36415; 85610

== ENCOUNTER 2019-08-02 10:12 | Outpatient (CLI) | payer MEDICARE, SELFPAY ==
[2019-08-02 10:51] LABS: INR 2.6 (0.9-1.1); Prothrombin Time 25.1 sec (9.3-11.0)
== END 2019-08-02 10:32 ==
PROVIDERS: PCP Family Medicine; Visit Provider Family Medicine
DX: I48.91 Unspecified atrial fibrillation (principal); Z79.01 Long term (current) use of anticoagulants
CPT/HCPCS: 36415; 85610

== ENCOUNTER 2019-08-17 09:02 | Outpatient (CLI) | payer MEDICARE, SELFPAY ==
[2019-08-17 10:12] LABS: INR 2.9 (0.9-1.1)
== END 2019-08-17 09:22 ==
PROVIDERS: PCP Family Medicine; Visit Provider Family Medicine
DX: I48.91 Unspecified atrial fibrillation (principal); Z79.01 Long term (current) use of anticoagulants
CPT/HCPCS: 36415; 85610

== ENCOUNTER 2019-08-24 01:52 | Outpatient (CLI) | payer MEDICARE, SELFPAY ==
[2019-08-24 08:55] LABS: Prothrombin Time 19.7 sec (9.3-11.0)
== END 2019-08-24 02:12 ==
PROVIDERS: PCP Family Medicine; Visit Provider Family Medicine
DX: I48.91 Unspecified atrial fibrillation (principal); Z79.01 Long term (current) use of anticoagulants
CPT/HCPCS: 36415; 85610

== ENCOUNTER 2019-08-30 02:06 | Outpatient (CLI) | payer MEDICARE, SELFPAY ==
[2019-08-30 08:49] LABS: INR 2.3 (0.9-1.1); Prothrombin Time 22.8 sec (9.3-11.0)
== END 2019-08-30 02:26 ==
PROVIDERS: PCP Family Medicine; Visit Provider Family Medicine
DX: I48.91 Unspecified atrial fibrillation (principal); Z79.01 Long term (current) use of anticoagulants
CPT/HCPCS: 36415; 85610

== ENCOUNTER 2019-09-14 01:39 | Outpatient (CLI) | payer MEDICARE, SELFPAY ==
[2019-09-14 09:19] LABS: Prothrombin Time 19.6 sec (9.3-11.0)
== END 2019-09-14 01:59 ==
PROVIDERS: PCP Family Medicine; Visit Provider Family Medicine
DX: I48.91 Unspecified atrial fibrillation (principal); Z79.01 Long term (current) use of anticoagulants
CPT/HCPCS: 36415; 85610

== ENCOUNTER 2019-09-28 02:28 | Outpatient (CLI) | payer MEDICARE, SELFPAY ==
[2019-09-28 08:57] LABS: INR 1.7 (0.9-1.1)
[2019-09-28 08:58] LABS: Hemoglobin A1C 6.3 % (3.8-5.6)
[2019-09-28 09:20] LABS: COMMENT (LAB VIEW ONLY) 118.99 mg/dL; Microalb ug/mg Crea 4.9 ug/mg Cr
[2019-09-28 09:50] LABS: ALT 17 U/L (14-59); AST 11 U/L (15-37); Albumin 3.6 g/dL (3.4-5.0); Alkaline Phosphatase 87 U/L (46-116); Anion Gap 7.6 mmol/L (3-11); BUN 19 mg/dL (7-18); Bilirubin, Total 0.7 mg/dL (0.2-1.0); CO2 30.4 mmol/L (21.0-32.0); CREATININE 1.03 mg/dL (0.55-1.02); Calcium 8.9 mg/dL (8.5-10.1); Calculated LDL 95 mg/dL; Chloride 105 mmol/L (98-107); Cholesterol 155 mg/dL (<200); Estimated GFR 52.38 (mL/min/1.73m2); Glucose 107 mg/dL (74-106); HDL Cholesterol 42 mg/dL (40-60); Potassium 3.9 mmol/L (3.5-5.1); Sodium 143 mmol/L (136-145); Total Protein 6.8 g/dL (6.4-8.2); Triglyceride 90 mg/dL (<150)
== END 2019-09-28 02:48 ==
PROVIDERS: PCP Family Medicine; Visit Provider Family Medicine
DX: E11.9 Type 2 diabetes mellitus without complications (principal); E78.5 Hyperlipidemia, unspecified; I48.91 Unspecified atrial fibrillation; Z79.01 Long term (current) use of anticoagulants
CPT/HCPCS: 36415; 80053; 80061; 82043; 82570; 83036; 85610

== ENCOUNTER 2019-10-13 01:24 | Outpatient (CLI) | payer MEDICARE, SELFPAY ==
--- NOTE | 2019-10-13 17:24 | DI.MAMMO_ITS ---
EXAM: MAMMO SCREENING CLINICAL HISTORY: screening Z12.39 TECHNIQUE: Mammograms were interpreted according to the usual protocol including computer analysis w [employer] CAD system, tomosynthesis and C-view imaging. FINDINGS: The breasts are of moderate density with fairly symmetrical distribution of fibroglandular tissue. M ultiple benign ductal calcifications noted. No suspicious clumped microcalcification. No dominant m ass. In comparison with previous examination of April 2010 shows a question of new focal asymmetric radio density or nodularity projected in the supra-areolar portion of left breast on MLO view. Additional mammographic views left breast including MLO spot compression view are requested to evaluate the poss ibility of a new breast mass. Ultrasound should probably be obtained as well. IMPRESSION: Additional mammographic views left breast and breast ultrasound requested as described above. Categor y 0. Breast density, category B. BI-RADS Cat 0 - Assessment Incomplete: Need additional imaging evaluation. Breast Density - Category B - Scattered areas of fibroglandular density.
== END 2019-10-13 01:44 ==
PROVIDERS: PCP Family Medicine; Visit Provider Family Medicine
DX: Z12.31 Encounter for screening mammogram for malignant neoplasm of breast (principal); R92.8 Other abnormal and inconclusive findings on diagnostic imaging of breast
CPT/HCPCS: 77063; 77067

== ENCOUNTER 2019-10-26 01:04 | Outpatient (CLI) | payer MEDICARE, SELFPAY ==
--- NOTE | 2019-10-26 10:09 | DI.MAMMO_ITS ---
EXAM: MG MAMMO SCREEN CALL BACK UNI left breast CLINICAL HISTORY: NEW FOCAL ASYMMETRIC RADIODENSITYOR NODULARITY IN SUPRA AREOLAR PORTION LT TECHNIQUE: MLO spot compression view with tomography was performed. COMPARISON: SCREENING YOVANNY MAMMO W/CAD DIGI from 04/18/2010 MG MAMMO SCREENING from 10/13/2019 FINDINGS: A spot compression view with tomography shows no persistent suspicious abnormality or change from 20 10. IMPRESSION: Category BI-RADS Cat 1 - Negative. Yearly screening mammography is recommended. BI-RADS Cat 1 - Negative. Breast Density - Category B - Scattered areas of fibroglandular density.
== END 2019-10-26 01:24 ==
PROVIDERS: PCP Family Medicine; Visit Provider Family Medicine
DX: Z12.31 Encounter for screening mammogram for malignant neoplasm of breast (principal); R92.8 Other abnormal and inconclusive findings on diagnostic imaging of breast; N64.59 Other signs and symptoms in breast
CPT/HCPCS: 77063; 77067

== ENCOUNTER 2019-11-15 02:03 | Outpatient (CLI) | payer MEDICARE, SELFPAY ==
[2019-11-15 08:35] LABS: INR 2.1 (0.9-1.1); Prothrombin Time 20.6 sec (9.3-11.0)
== END 2019-11-15 02:23 ==
PROVIDERS: PCP Family Medicine; Visit Provider Family Medicine
DX: I48.91 Unspecified atrial fibrillation (principal); Z79.01 Long term (current) use of anticoagulants
CPT/HCPCS: 36415; 85610

== ENCOUNTER 2020-08-22 04:17 | Outpatient (CLI) | payer MEDICARE, SELFPAY ==
[2020-08-22 14:41] LABS: INR 1.1 (0.9-1.1)
== END 2020-08-22 04:37 ==
PROVIDERS: PCP Family Medicine; Visit Provider Family Medicine
DX: I48.91 Unspecified atrial fibrillation (principal); Z79.01 Long term (current) use of anticoagulants
CPT/HCPCS: 36415; 85610

== ENCOUNTER 2020-08-28 03:15 | Outpatient (CLI) | payer MEDICARE, SELFPAY ==
[2020-08-28 07:59] LABS: INR 1.1 (0.9-1.1); Prothrombin Time 10.9 sec (9.3-11.0)
[2020-08-28 08:14] LABS: Hemoglobin A1C 6.5 % (<5.7)
[2020-08-28 08:35] LABS: COMMENT (LAB VIEW ONLY) 56.07 mg/dL
[2020-08-28 08:38] LABS: ALT 22 U/L (14-59); AST 15 U/L (15-37); Albumin 3.7 g/dL (3.4-5.0); Alkaline Phosphatase 92 U/L (46-116); Anion Gap 9.1 mmol/L (3-11); BUN 19 mg/dL (7-18); Bilirubin, Total 0.7 mg/dL (0.2-1.0); CO2 28.9 mmol/L (21.0-32.0); CREATININE 1.25 mg/dL (0.55-1.02); Calcium 8.8 mg/dL (8.5-10.1); Calculated LDL 91 mg/dL (<100); Chloride 108 mmol/L (98-107); Cholesterol 149 mg/dL (<200); Estimated GFR 41.89 (mL/min/1.73m2); Glucose 118 mg/dL (74-106); HDL Cholesterol 40 mg/dL (40-60); Sodium 146 mmol/L (136-145); Total Protein 6.9 g/dL (6.4-8.2); Triglyceride 94 mg/dL (<150)
== END 2020-08-28 03:35 ==
PROVIDERS: PCP Family Medicine; Visit Provider Family Medicine
DX: E11.9 Type 2 diabetes mellitus without complications (principal); I10 Essential (primary) hypertension; I48.91 Unspecified atrial fibrillation; Z79.01 Long term (current) use of anticoagulants
CPT/HCPCS: 36415; 80053; 80061; 82043; 82570; 83036; 85610

== ENCOUNTER 2020-08-31 02:02 | Outpatient (CLI) | payer MEDICARE, SELFPAY ==
[2020-08-31 15:41] LABS: Prothrombin Time 38.9 sec (9.3-11.0)
== END 2020-08-31 02:22 ==
PROVIDERS: PCP Family Medicine; Visit Provider Family Medicine
DX: I48.91 Unspecified atrial fibrillation (principal); Z79.01 Long term (current) use of anticoagulants
CPT/HCPCS: 36415; 85610

== ENCOUNTER 2020-09-04 02:43 | Outpatient (CLI) | payer MEDICARE, SELFPAY ==
[2020-09-04 15:54] LABS: INR 1.5 (0.9-1.1); Prothrombin Time 14.6 sec (9.3-11.0)
== END 2020-09-04 03:03 ==
PROVIDERS: PCP Family Medicine; Visit Provider Family Medicine
DX: I48.91 Unspecified atrial fibrillation (principal); Z79.01 Long term (current) use of anticoagulants
CPT/HCPCS: 36415; 85610

== ENCOUNTER 2020-09-11 02:54 | Outpatient (CLI) | payer MEDICARE, SELFPAY ==
[2020-09-11 15:45] LABS: INR 3.4 (0.9-1.1)
== END 2020-09-11 03:14 ==
PROVIDERS: PCP Family Medicine; Visit Provider Family Medicine
DX: I48.91 Unspecified atrial fibrillation (principal); Z79.01 Long term (current) use of anticoagulants
CPT/HCPCS: 36415; 85610

== ENCOUNTER 2020-09-18 04:26 | Outpatient (CLI) | payer MEDICARE, SELFPAY ==
[2020-09-18 16:10] LABS: INR 3.9 (0.9-1.1); Prothrombin Time 37.5 sec (9.3-11.0)
== END 2020-09-18 04:46 ==
PROVIDERS: PCP Family Medicine; Visit Provider Family Medicine
DX: I48.91 Unspecified atrial fibrillation (principal); Z79.01 Long term (current) use of anticoagulants
CPT/HCPCS: 36415; 85610

== ENCOUNTER 2020-09-26 02:34 | Outpatient (CLI) | payer MEDICARE, SELFPAY ==
[2020-09-26 08:53] LABS: INR 1.8 (0.9-1.1); Prothrombin Time 18.3 sec (9.3-11.0)
== END 2020-09-26 02:54 ==
PROVIDERS: PCP Family Medicine; Visit Provider Family Medicine
DX: I48.91 Unspecified atrial fibrillation (principal); Z79.01 Long term (current) use of anticoagulants
CPT/HCPCS: 36415; 85610

== ENCOUNTER 2020-10-03 03:32 | Outpatient (CLI) | payer MEDICARE, SELFPAY ==
[2020-10-03 16:11] LABS: Prothrombin Time 19.8 sec (9.3-11.0)
== END 2020-10-03 03:52 ==
PROVIDERS: PCP Family Medicine; Visit Provider Family Medicine
DX: I48.91 Unspecified atrial fibrillation (principal); Z79.01 Long term (current) use of anticoagulants
CPT/HCPCS: 36415; 85610

== ENCOUNTER 2020-10-30 09:25 | Outpatient (CLI) | payer MEDICARE, SELFPAY ==
--- NOTE | 2020-10-30 09:15 | RT.EKG_ITS ---
APPROVED REPORT Exam: Resting ECG Patient Location: O HR:58 bpm ECG Measurements Heart Rate 58 AXIS OH 165 P -22 QRSd 90 QRS 13 QT 427 T 10 QTc 419 Conclusion Sinus bradycardia...rate< 60
== END 2020-10-30 09:26 | disposition home or self-care (01) ==
PROVIDERS: PCP Family Medicine; Visit Provider Physician Assistant
DX: R00.1 Bradycardia, unspecified (principal); I48.0 Paroxysmal atrial fibrillation; Z79.01 Long term (current) use of anticoagulants
CPT/HCPCS: 93010

== ENCOUNTER 2020-10-30 12:39 | Outpatient (REF) | payer MEDICARE, SELFPAY ==
[2020-10-30 15:36] LABS: Abs Immature Grans 0.02 10^3/uL (0.0-0.06); Absolute Basophil Count 0.03 10^3/uL (0.0-0.2); Absolute Eosinophil Count 0.13 10^3/uL (0.0-0.7); Absolute Monocyte Count 0.32 10^3/uL (0.1-0.8); Absolute Neutrophil Count 3.64 10^3/uL (1.2-6.7); Basophils % 0.5; Eosinophils % 2.2; HCT 43.9 % (36.0-46.0); HGB 14.1 g/dL (11.2-15.7); Immature Grans % 0.3; Lymphocytes % 29.1; MCH 29.7 pg (27.0-33.0); MCHC 32.1 % (32.0-36.0); MCV 92.4 fL (80-95); MPV 11.1 fL (8.0-11.0); Monocytes % 5.5; Neutrophils % 62.4; Nucleated RBC 0 %; Platelet Count 226 10^3/uL (130-400); RBC 4.75 10^6/uL (3.93-5.22); RDW 12.7 % (11.7-14.6); RDW-SD 43.4 fL; WBC 5.84 10^3/uL (4.4-10.8)
[2020-10-30 16:40] LABS: ALT 26 U/L (14-59); AST 23 U/L (15-37); Albumin 4.1 g/dL (3.4-5.0); Alkaline Phosphatase 103 U/L (46-116); Anion Gap 10.3 mmol/L (3-11); BUN 22 mg/dL (7-18); Bilirubin, Total 0.7 mg/dL (0.2-1.0); CO2 27.7 mmol/L (21.0-32.0); CREATININE 1.2 mg/dL (0.55-1.02); Calcium 9.4 mg/dL (8.5-10.1); Chloride 106 mmol/L (98-107); Glucose 109 mg/dL (74-106); Potassium 3.8 mmol/L (3.5-5.1); Sodium 144 mmol/L (136-145); Total Protein 7.4 g/dL (6.4-8.2)
== END 2020-10-30 12:40 | disposition home or self-care (01) ==
LOC: LBN 12:39
PROVIDERS: PCP Family Medicine; Visit Provider Physician Assistant
DX: R55 Syncope and collapse (principal)
CPT/HCPCS: 80053; 85025

== ENCOUNTER 2020-10-31 16:11 | Outpatient (REF) | payer MEDICARE, SELFPAY ==
[2020-10-31 17:17] LABS: Bilirubin Negative (Negative); Blood Negative (Negative); Clarity Sl Cloudy (Clear); Glucose Negative (Negative); Ketones Negative (Negative); Leukocyte Esterase Large (Negative); Nitrite Negative (Negative); Specific Gravity >= 1.030 (1.005-1.025); Urobilinogen 0.2 EU/dL (Up TO 0.2)
[2020-10-31 17:25] LABS: Bacteria Few HPF (Negative); Epithelial Cells Many HPF (Negative); WBC >50 HPF (0-5)
[2020-10-31 17:26] LABS: C & S Indicated? No/Sq. Contamination
== END 2020-10-31 16:12 | disposition home or self-care (01) ==
LOC: LBN 16:11
PROVIDERS: PCP Family Medicine; Visit Provider Physician Assistant
DX: R82.998 Other abnormal findings in urine (principal); R55 Syncope and collapse
CPT/HCPCS: 81003; 81015

== ENCOUNTER 2020-11-01 22:35 | Outpatient (REF) | payer MEDICARE, SELFPAY | END 2020-11-01 22:36 | disposition home or self-care (01) | LOC: NCHCN 22:35 | PROVIDERS: PCP Family Medicine; Visit Provider Physician Assistant | DX: R82.998 Other abnormal findings in urine (principal); R42 Dizziness and giddiness | CPT/HCPCS: 87077; 87086; 87186 ==

== ENCOUNTER 2020-11-06 02:07 | Outpatient (CLI) | payer MEDICARE, SELFPAY ==
--- NOTE | 2020-11-06 08:05 | DI.CT_ITS ---
EXAM: CT HEAD WO CLINICAL HISTORY: unwitness fall with bruises right side of body/LOC,HEAD TRAUMA,S09.90XA. TECHNIQUE: Imaging Protocol: Axial computed tomography images with coronal and sagittal reformatted images were created and reviewed COMPARISON: No exams were available for comparison FINDINGS: There are no skull fractures nor fluid in the visualized paranasal sinuses. There is no evidence of intracranial hemorrhage, mass effect, or shift of midline structures. There are no extra-axial fluid collections. The ventricles are not enlarged or shifted and there is no blo od within the ventricular system nor within the basal cisterns. There is some bilateral periventricular hypodensity consistent with chronic small vessel disease. No obvious acute infarcts. Calcification is noted within the chu of both vertebral arteries at the skull base as well as both internal carotid arteries within the cavernous sinuses. IMPRESSION: Bilateral periventricular hypodensity consistent with chronic small vessel disease. No evidence of o bvious acute infarction. No evidence of hemorrhage. Vascular calcification of the skull base as described above. RADIATION DOSE DELIVERED: 655.94mGy.cm Total DLP DATA REPOSITORY: All CT scans at this facility are submitted to the National Radiology Data Registry (NRDR) Dose Index Registry (DIR) with the [employer] (ACR). RADIATION OPTIMIZATION: All CT scans at this facility use at least one of these dose optimization te chniques: automated exposure control; mA and/or kV adjustment per patient size (includes targeted exa ms where dose is matched to clinical indication); or iterative reconstruction.
== END 2020-11-06 02:08 ==
LOC: DI 02:08
PROVIDERS: PCP Family Medicine; Visit Provider Family Medicine
DX: S09.8XXA Other specified injuries of head, initial encounter (principal)
CPT/HCPCS: 70450

== ENCOUNTER 2020-12-18 02:33 | Outpatient (CLI) | payer MEDICARE, SELFPAY ==
--- NOTE | 2020-12-18 06:45 | DI.MAMMO_ITS ---
EXAM: MG MAMMO SCREENING CLINICAL HISTORY: screening,Z12.39 TECHNIQUE: Bilateral full field digital CC and MLO mammographic images were obtained with 3D tomosyn thesis and utilizing computer aided detection (CAD). COMPARISON: Available for comparison. FINDINGS: Masses/Architectural Distortion: None seen. Microcalcifications: No suspicious pleomorphic-type are seen. Skin Thickening/Nipple Retraction: None. IMPRESSION: 1. No significant interval change with no specific features of malignancy noted. 2. Unless there is more urgent need, screening mammography is recommended, as per [employer] guidelines. BI-RADS Category 1 - Negative Breast Density - Category B - Scattered areas of fibroglandular density Breast density category C or D implies that the patient has dense breast tissue. Dense breast tissue is very common and is not abnormal but dense breast tissue can make it harder to find cancer on a ma mmogram. Also, dense breast tissue may increase their breast cancer risk. This information about the result of the mammogram report was provided to the patient to raise their awareness. Use this report when you speak with the patient about their risks for breast cancer, which includes their family hist ory. At that time, you may recommend for more screening tests (Ultrasound or MRI) as they might be us eful based on their risk. A negative radiographic report should not delay biopsy if a dominant or clinically suspicious mass is present. Up to ten percent of cancers are not identified on mammography. A negative report may reinforce clinical impression. Adenosis and dense breasts may obscure an underlying neoplasm. False positive reports average 6 to 10%. Patient will receive a letter notifying them of these results.
== END 2020-12-18 02:53 ==
PROVIDERS: PCP Family Medicine; Visit Provider Family Medicine
DX: Z12.31 Encounter for screening mammogram for malignant neoplasm of breast (principal)
CPT/HCPCS: 77063; 77067

== ENCOUNTER 2020-12-19 04:12 | Outpatient (CLI) | payer MEDICARE, SELFPAY ==
[2020-12-19 17:11] LABS: INR 1.4 (0.9-1.1); Prothrombin Time 14.2 sec (9.3-11.0)
== END 2020-12-19 04:13 | disposition home or self-care (01) ==
LOC: LBO 04:13
PROVIDERS: PCP Family Medicine; Visit Provider Family Medicine
DX: I48.91 Unspecified atrial fibrillation (principal); Z79.01 Long term (current) use of anticoagulants
CPT/HCPCS: 36415; 85610

== ENCOUNTER 2021-01-15 02:29 | Outpatient (CLI) | payer MEDICARE, SELFPAY ==
[2021-01-15 08:06] LABS: INR 1.6 (0.9-1.1); Prothrombin Time 15.5 sec (9.3-11.0)
== END 2021-01-15 02:30 | disposition home or self-care (01) ==
LOC: LBO 02:29
PROVIDERS: PCP Family Medicine; Visit Provider Family Medicine
DX: I48.91 Unspecified atrial fibrillation (principal); Z79.01 Long term (current) use of anticoagulants
CPT/HCPCS: 36415; 85610

== ENCOUNTER 2021-01-22 03:26 | Outpatient (CLI) | payer MEDICARE, SELFPAY ==
[2021-01-22 07:36] LABS: INR 1.5 (0.9-1.1); Prothrombin Time 14.8 sec (9.3-11.0)
[2021-01-22 07:44] LABS: Hemoglobin A1C 6.4 % (<5.7)
[2021-01-22 08:44] LABS: ALT 22 U/L (14-59); AST 20 U/L (15-37); Albumin 3.7 g/dL (3.4-5.0); Alkaline Phosphatase 106 U/L (46-116); Anion Gap 9.9 mmol/L (3-11); BUN 21 mg/dL (7-18); Bilirubin, Total 0.6 mg/dL (0.2-1.0); CO2 27.1 mmol/L (21.0-32.0); CREATININE 1.2 mg/dL (0.55-1.02); Chloride 107 mmol/L (98-107); Glucose 139 mg/dL (74-106); Potassium 3.8 mmol/L (3.5-5.1); Sodium 144 mmol/L (136-145); Total Protein 7.1 g/dL (6.4-8.2)
== END 2021-01-22 03:27 | disposition home or self-care (01) ==
LOC: LBO 03:26
PROVIDERS: PCP Family Medicine; Visit Provider Family Medicine
DX: E11.9 Type 2 diabetes mellitus without complications (principal); E83.42 Hypomagnesemia; I48.91 Unspecified atrial fibrillation; Z79.01 Long term (current) use of anticoagulants
CPT/HCPCS: 36415; 80053; 83036; 83735; 85610

== ENCOUNTER 2021-02-06 03:32 | Outpatient (CLI) | payer MEDICARE, SELFPAY ==
[2021-02-06 15:29] LABS: INR 2.8 (0.9-1.1); Prothrombin Time 27.2 sec (9.3-11.0)
== END 2021-02-06 03:33 | disposition home or self-care (01) ==
LOC: LBO 03:32
PROVIDERS: PCP Family Medicine; Visit Provider Family Medicine
DX: I48.91 Unspecified atrial fibrillation (principal); Z79.01 Long term (current) use of anticoagulants
CPT/HCPCS: 36415; 85610

== ENCOUNTER 2021-03-27 07:42 | Outpatient (CLI) | payer MEDICARE, SELFPAY ==
[2021-03-27 12:41] LABS: INR 1.9 (0.9-1.1)
== END 2021-03-27 07:43 | disposition home or self-care (01) ==
PROVIDERS: PCP Family Medicine; Visit Provider Family Medicine
DX: I48.91 Unspecified atrial fibrillation (principal); Z79.01 Long term (current) use of anticoagulants
CPT/HCPCS: 36415; 85610

== ENCOUNTER 2021-04-09 01:59 | Outpatient (CLI) | payer MEDICARE, SELFPAY ==
[2021-04-09 12:37] LABS: INR 2.9 (0.9-1.1); Prothrombin Time 28.1 sec (9.3-11.0)
== END 2021-04-09 02:00 | disposition home or self-care (01) ==
LOC: LOS 02:00
PROVIDERS: PCP Family Medicine; Visit Provider Family Medicine
DX: I48.91 Unspecified atrial fibrillation (principal); Z79.01 Long term (current) use of anticoagulants
CPT/HCPCS: 36415; 85610

== ENCOUNTER 2021-06-06 00:17 | Outpatient (CLI) | payer MEDICARE, SELFPAY ==
[2021-06-06 12:49] LABS: INR 3.4 (0.9-1.1); Prothrombin Time 32.7 sec (9.3-11.0)
== END 2021-06-06 00:18 | disposition home or self-care (01) ==
PROVIDERS: PCP Family Medicine
DX: I48.91 Unspecified atrial fibrillation (principal); Z79.01 Long term (current) use of anticoagulants
CPT/HCPCS: 36415; 85610

== ENCOUNTER 2021-06-11 03:10 | Outpatient (CLI) | payer MEDICARE, SELFPAY ==
[2021-06-11 12:50] LABS: Prothrombin Time 40.4 sec (9.3-11.0)
[2021-06-11 13:04] LABS: INR 4.2 (0.9-1.1)
== END 2021-06-11 03:11 | disposition home or self-care (01) ==
PROVIDERS: PCP Family Medicine; Visit Provider Family Medicine
DX: I48.91 Unspecified atrial fibrillation (principal); Z79.01 Long term (current) use of anticoagulants
CPT/HCPCS: 36415; 85610

== ENCOUNTER 2021-06-19 03:34 | Outpatient (CLI) | payer MEDICARE, SELFPAY ==
[2021-06-19 12:32] LABS: INR 2.7 (0.9-1.1); Prothrombin Time 26.6 sec (9.3-11.0)
== END 2021-06-19 03:35 | disposition home or self-care (01) ==
LOC: LOS 03:34
PROVIDERS: PCP Family Medicine; Visit Provider Family Medicine
DX: I48.91 Unspecified atrial fibrillation (principal)
CPT/HCPCS: 36415; 85610

== ENCOUNTER 2021-06-21 03:08 | Outpatient (CLI) | payer MEDICARE, SELFPAY ==
[2021-06-21 12:55] LABS: Anion Gap 7.2 mmol/L (3-11); BUN 14 mg/dL (7-18); CO2 29.8 mmol/L (21.0-32.0); CREATININE 1.1 mg/dL (0.55-1.02); Calcium 8.8 mg/dL (8.5-10.1); Chloride 106 mmol/L (98-107); Estimated GFR 48.42 (mL/min/1.73m2); Glucose 108 mg/dL (74-106); Potassium 3.6 mmol/L (3.5-5.1); Sodium 143 mmol/L (136-145)
[2021-06-21 13:49] LABS: COMMENT (LAB VIEW ONLY) 193.57 mg/dL; Microalb ug/mg Crea 4.4 ug/mg Cr
[2021-06-21 13:56] LABS: Hemoglobin A1C 6.3 % (<5.7)
== END 2021-06-21 03:09 | disposition home or self-care (01) ==
LOC: LOS 03:08
PROVIDERS: PCP Family Medicine; Visit Provider Family Medicine
DX: E11.9 Type 2 diabetes mellitus without complications (principal)
CPT/HCPCS: 36415; 80048; 82043; 82570; 83036

== ENCOUNTER 2021-07-12 01:49 | Outpatient (CLI) | payer MEDICARE, SELFPAY ==
[2021-07-12 12:29] LABS: INR 1.7 (0.9-1.1); Prothrombin Time 16.5 sec (9.3-11.0)
== END 2021-07-12 01:50 | disposition home or self-care (01) ==
LOC: LOS 01:49
PROVIDERS: PCP Family Medicine; Visit Provider Family Medicine
DX: I48.91 Unspecified atrial fibrillation (principal); Z79.01 Long term (current) use of anticoagulants
CPT/HCPCS: 36415; 85610

== ENCOUNTER 2021-07-16 02:37 | Outpatient (CLI) | payer MEDICARE, SELFPAY ==
[2021-07-16 12:48] LABS: INR 2.3 (0.9-1.1); Prothrombin Time 22.5 sec (9.3-11.0)
== END 2021-07-16 02:38 | disposition home or self-care (01) ==
LOC: LOS 02:43
PROVIDERS: PCP Family Medicine; Visit Provider Family Medicine
DX: I48.91 Unspecified atrial fibrillation (principal)
CPT/HCPCS: 36415; 85610

== ENCOUNTER 2021-08-07 01:52 | Outpatient (CLI) | payer MEDICARE, SELFPAY ==
[2021-08-07 10:50] LABS: INR 2.2 (0.9-1.1); Prothrombin Time 21.9 sec (9.3-11.0)
== END 2021-08-07 01:53 | disposition home or self-care (01) ==
LOC: LOS 01:52
PROVIDERS: PCP Family Medicine; Visit Provider Family Medicine
DX: I48.91 Unspecified atrial fibrillation (principal)
CPT/HCPCS: 36415; 85610

== ENCOUNTER 2021-08-29 15:45 | Outpatient (REF) | payer MEDICARE, SELFPAY ==
[2021-08-30 15:04] LABS: COVID-19 RT-PCR UVMMC Result Negative (Negative)
== END 2021-08-29 15:46 | disposition home or self-care (01) ==
LOC: LBN 15:45
PROVIDERS: PCP Family Medicine; Visit Provider Family Medicine
DX: Z20.822 Contact with and (suspected) exposure to COVID-19 (principal); R05.8 Other specified cough
CPT/HCPCS: U0003; U0005

== ENCOUNTER 2021-10-01 02:13 | Outpatient (CLI) | payer MEDICARE, SELFPAY ==
[2021-10-01 13:24] LABS: Prothrombin Time 23.1 sec (9.3-11.0)
[2021-10-01 13:26] LABS: INR 2.3 (0.9-1.1)
== END 2021-10-01 02:14 | disposition home or self-care (01) ==
LOC: LBO 02:14
PROVIDERS: PCP Family Medicine; Visit Provider Family Medicine
DX: I48.91 Unspecified atrial fibrillation (principal)
CPT/HCPCS: 36415; 85610

== ENCOUNTER 2021-12-25 23:45 | Outpatient (CLI) | payer MEDICARE, SELFPAY ==
[2021-12-25 16:12] LABS: Hemoglobin A1C 6.5 % (<5.7)
[2021-12-25 16:13] LABS: INR 3.3 (0.9-1.1); Prothrombin Time 32.2 sec (9.3-11.0)
[2021-12-25 16:21] LABS: COMMENT (LAB VIEW ONLY) 59.37 mg/dL; Microalb ug/mg Crea 10.9 ug/mg Cr
[2021-12-25 16:22] LABS: ALT 27 U/L (14-59); Anion Gap 10.2 mmol/L (3-11); BUN 22 mg/dL (7-18); CO2 27.8 mmol/L (21.0-32.0); CREATININE 1.2 mg/dL (0.55-1.02); Calcium 8.8 mg/dL (8.5-10.1); Calculated LDL 102 mg/dL (<100); Chloride 105 mmol/L (98-107); Cholesterol 170 mg/dL (<200); Estimated GFR 43.68 (mL/min/1.73m2); Glucose 134 mg/dL (74-106); HDL Cholesterol 42 mg/dL (40-60); Potassium 3.6 mmol/L (3.5-5.1); Sodium 143 mmol/L (136-145); Triglyceride 134 mg/dL (<150)
== END 2021-12-25 23:46 | disposition home or self-care (01) ==
LOC: LBO 12-27 23:45
PROVIDERS: PCP Nurse Practitioner; Visit Provider Family Medicine
DX: E11.9 Type 2 diabetes mellitus without complications (principal); E78.5 Hyperlipidemia, unspecified; I10 Essential (primary) hypertension; I48.0 Paroxysmal atrial fibrillation; Z79.01 Long term (current) use of anticoagulants; R55 Syncope and collapse
CPT/HCPCS: 36415; 80048; 80061; 82043; 82570; 83036; 84460; 85610

== ENCOUNTER 2021-12-31 02:46 | Outpatient (CLI) | payer MEDICARE, SELFPAY ==
[2021-12-31 14:03] LABS: Prothrombin Time 38.6 sec (9.3-11.0)
== END 2021-12-31 02:47 | disposition home or self-care (01) ==
LOC: LBO 02:46
PROVIDERS: Family Medicine; PCP Nurse Practitioner; Visit Provider Family Medicine
DX: I48.91 Unspecified atrial fibrillation (principal); Z79.01 Long term (current) use of anticoagulants
CPT/HCPCS: 36415; 85610

== ENCOUNTER → 2022-03-12 12:27 | Outpatient (BNVA) | payer MEDICARE, SELFPAY | PROVIDERS: PCP Nurse Practitioner; Referring Provider Nurse Practitioner; Visit Provider Internal Medicine Cardiovascular Disease | DX: I48.0 Paroxysmal atrial fibrillation (principal); I10 Essential (primary) hypertension | CPT/HCPCS: 93005; 99202; 99214 ==

== ENCOUNTER 2022-03-12 12:56 | Outpatient (CLI) | payer MEDICARE, SELFPAY ==
--- NOTE | 2022-03-12 12:45 | RT.EKG_ITS ---
APPROVED REPORT Exam: Resting ECG Reason for Exam: PAF Patient Location: O HR:51 bpm ECG Measurements Heart Rate 51 AXIS MO 222 P -6 QRSd 98 QRS -5 QT 441 T 35 QTc 407 Conclusion Sinus rhythm...normal P axis, V-rate 50- 99 Prolonged MO interval...MO >220, V-rate 50- 90
== END 2022-03-12 12:57 | disposition home or self-care (01) ==
LOC: DI.CARD 12:57
PROVIDERS: PCP Nurse Practitioner; Visit Provider Internal Medicine Cardiovascular Disease
DX: I48.0 Paroxysmal atrial fibrillation (principal)
CPT/HCPCS: 93010

== ENCOUNTER 2022-07-04 10:06 | Outpatient (CLI) | payer MEDICARE, SELFPAY ==
[2022-07-04 13:05] LABS: Prothrombin Time 72.9 sec (9.3-11.0)
[2022-07-04 13:14] LABS: INR 8.3 (0.9-1.1)
== END 2022-07-04 10:07 | disposition home or self-care (01) ==
LOC: LOS 10:06
PROVIDERS: PCP Nurse Practitioner Family; Visit Provider Nurse Practitioner Family
DX: Z79.01 Long term (current) use of anticoagulants (principal); I48.0 Paroxysmal atrial fibrillation
CPT/HCPCS: 36415; 85610

== ENCOUNTER 2022-07-08 03:27 | Outpatient (CLI) | payer MEDICARE, SELFPAY ==
[2022-07-08 12:31] LABS: INR 2.6 (0.9-1.1); Prothrombin Time 24.9 sec (9.3-11.0)
== END 2022-07-08 03:28 | disposition home or self-care (01) ==
LOC: LOS 03:27
PROVIDERS: PCP Nurse Practitioner Family; Visit Provider Nurse Practitioner Family
DX: I48.91 Unspecified atrial fibrillation (principal); Z79.01 Long term (current) use of anticoagulants
CPT/HCPCS: 36415; 85610

== ENCOUNTER 2022-08-05 11:08 | Outpatient (CLI) | payer MEDICARE, SELFPAY ==
[2022-08-05 13:05] LABS: Abs Immature Grans 0.04 10^3/uL (0.0-0.06); Absolute Eosinophil Count 0.06 10^3/uL (0.0-0.7); Absolute Lymphocyte Count 1.22 10^3/uL (1.2-3.4); Absolute Monocyte Count 0.55 10^3/uL (0.1-0.8); Basophils % 0.2; Eosinophils % 0.5; HCT 41.2 % (36.0-46.0); HGB 13.7 g/dL (11.2-15.7); Immature Grans % 0.3; Lymphocytes % 9.8; MCH 29.9 pg (27.0-33.0); MCHC 33.3 % (32.0-36.0); MCV 90 fL (80-95); MPV 10.5 fL (8.0-11.0); Monocytes % 4.4; Neutrophils % 84.8; Platelet Count 249 10^3/uL (130-400); RBC 4.58 10^6/uL (3.93-5.22); RDW 13.1 % (11.7-14.6); RDW-SD 42.9 fL; WBC 12.45 10^3/uL (4.4-10.8)
[2022-08-05 13:06] LABS: Absolute Basophil Count 0.02 10^3/uL (0.0-0.2); Absolute Neutrophil Count 10.56 10^3/uL (1.2-6.7)
[2022-08-05 13:31] LABS: ALT 25 U/L (14-59); AST 26 U/L (15-37); Albumin 4.1 g/dL (3.4-5.0); Alkaline Phosphatase 86 U/L (46-116); Anion Gap 8.7 mmol/L (3-11); BUN 29 mg/dL (7-18); Bilirubin, Total 0.8 mg/dL (0.2-1.0); CO2 28.3 mmol/L (21.0-32.0); CREATININE 1.7 mg/dL (0.55-1.02); Calcium 9.5 mg/dL (8.5-10.1); Chloride 103 mmol/L (98-107); Estimated GFR 30.89 (mL/min/1.73m2); Glucose 107 mg/dL (74-106); Potassium 4.3 mmol/L (3.5-5.1); Sodium 140 mmol/L (136-145); Total Protein 7.8 g/dL (6.4-8.2)
[2022-08-05 13:34] LABS: Prothrombin Time 69.6 sec (9.3-11.0)
[2022-08-05 13:37] LABS: INR 7.9 (0.9-1.1)
== END 2022-08-05 11:09 | disposition home or self-care (01) ==
LOC: LOS 11:09
PROVIDERS: PCP Nurse Practitioner Family; Visit Provider Nurse Practitioner Family
DX: R11.2 Nausea with vomiting, unspecified (principal); U07.1 COVID-19; I48.0 Paroxysmal atrial fibrillation; Z79.01 Long term (current) use of anticoagulants
CPT/HCPCS: 36415; 80053; 85025; 85610

== ENCOUNTER 2022-09-17 08:23 | Outpatient (CLI) | payer OTHER, SELFPAY ==
[2022-09-17 12:44] LABS: BUN 21 mg/dL (7-18); CREATININE 1.2 mg/dL (0.55-1.02); Chloride 107 mmol/L (98-107); Estimated GFR 46.91 (mL/min/1.73m2); Glucose 159 mg/dL (74-106); Potassium 3.8 mmol/L (3.5-5.1); Sodium 142 mmol/L (136-145)
== END 2022-09-17 08:24 | disposition home or self-care (01) ==
LOC: LOS 08:23
PROVIDERS: PCP Nurse Practitioner Family; Referring Provider Family Medicine; Visit Provider Family Medicine
DX: E87.1 Hypo-osmolality and hyponatremia (principal)
CPT/HCPCS: 36415; 80048

== ENCOUNTER 2023-03-01 21:14 | Emergency (ER) | payer OTHER, SELFPAY ==
[2023-03-01 21:17] VITALS: BP 191/79; PULSE 74; RESP 18; TEMP 36.7; O2SAT 98
--- NOTE | 2023-03-01 21:23 | ED.GENADUL_ITS ---
Discharge Plan Disposition Patient Disposition: Home Discharge Details Clinical Impression: Bleeding external hemorrhoids Primary Care Provider: Joaquin Moss ED Provider: Matt Jeffery [place] Meds and New Rx's Prescriptions: New hydrocortisone [Anusol-HC] 2.5 % cream with perineal applicator 1 applic LA BID-QID PRN (Reason: hemorrhoids) Qty: 30 0RF Continued atorvastatin 40 mg tablet 40 mg PO HS Qty: 90 4RF diltiazem HCl [Cardizem CD] 120 mg capsule,extended release 24hr 120 mg PO DAILY Qty: 90 4RF metformin 500 mg tablet 500 mg PO HS Qty: 90 3RF omeprazole 40 mg capsule,delayed release(DR/EC) 40 mg PO DAILY Qty: 90 4RF Eliquis 5 mg tablet See Rx Instructions .ROUTE .COMPLEX Qty: 60 6RF Dose Instruction: Take 1 tablet by mouth twice daily Rx Instructions: Take 1 tablet by mouth twice daily lisinopril-hydrochlorothiazide 20-25 mg tablet 1 tab PO DAILY Qty: 90 3RF acetaminophen 500 mg tablet 500 mg PO Q6H PRN PRN (Reason: pain) Qty: 60 3RF Discharge Instructions Instructions: Hemorrhoids (ED) Additional Instructions: Your bleeding is due to external hemorrhoids. We have controlled the bleeding with some medication here. Prescription for topical cream sent to pharmacy for you to begin using in the morning. If you develop recurrent heavy bleeding you should hold pressure on the external portion of your rectum which will likely control the bleeding. If it is persistent or heavy return to ED. We will refer you to surgery for follow up. Return to ED for continued heavy bleeding, weakness, lightedness, chest pain, shortness of breath. Referrals: [facility] [Provider Group] Medical Decision Making Patient presenting due to bright red blood per rectum. She did not have a bowel movement and did not pass stool. Her bleeding is coming from the external hemorrhoid. At this point it is simply oozing. We will try TXA soaked gauze to control the bleeding. She is not tachycardic and if anything is hypertensive. I do not suspect that this is a true lower GI bleed as she is describing bright red blood similar to what is on her pad. She denies any passage of stool. Once bleeding controlled patient will be discharged home with prescription for hemorrhoidal cream. Refer to surgery for follow-up. Return precautions provided. HPI General Mode of arrival: ambulatory . Date/Time Provider Initiated Documentation: 03/01/23 21:23 . Limitations to Documentation: no limitations . Information obtained by: patient . HPI Narrative: Patient presents to ED with bright red blood per rectum that occurred tonight. She reports having a couple episodes of spotting last week. Tonight had bleeding with bright red blood. There is no stool present. Currently wearing a pad because of the bleeding. She had a little bit of abdominal discomfort earlier today but nothing currently. She is on Eliquis. She denies any lightheadedness, weakness, chest pain, shortness of breath. Related Data Home Medications Medication Instructions Recorded Confirmed acetaminophen 500 mg tablet 500 mg PO Q6H PRN PRN pain #60 tabs 05/19/19 3 atorvastatin 40 mg tablet 40 mg PO HS #90 tabs 09/18/22 03/01/23 diltiazem HCl 120 mg 120 mg PO DAILY #90 caps 09/18/22 03/01/23 capsule,extended release 24 hr (Cardizem CD) metformin 500 mg tablet 500 mg PO HS #90 tabs 09/18/22 03/01/23 omeprazole 40 mg capsule,delayed 40 mg PO DAILY #90 caps 09/18/22 03/01/23 release apixaban 5 mg tablet (Eliquis) See Rx Instructions .Route 12/23/22 03/01/23 .COMPLEX #60 tabs lisinopril 20 1 tab PO DAILY #90 tabs 01/27/23 03/01/23 mg-hydrochlorothiazide 25 mg tablet hydrocortisone 2.5 % topical cream 1 applic LA BID-QID PRN 03/01/23 with perineal applicator hemorrhoids #30 grams (Anusol-HC) Previous Rx's Medication Instructions Recorded acetaminophen 500 mg tablet 500 mg PO Q6H PRN PRN pain #60 tabs 05/19/19 atorvastatin 40 mg tablet 40 mg PO HS #90 tabs 09/18/22 diltiazem HCl 120 mg 120 mg PO DAILY #90 caps 09/18/22 capsule,extended release 24 hr (Cardizem CD) metformin 500 mg tablet 500 mg PO HS #90 tabs 09/18/22 omeprazole 40 mg capsule,delayed 40 mg PO DAILY #90 caps 09/18/22 release apixaban 5 mg tablet (Eliquis) See Rx Instructions .Route 12/23/22 .COMPLEX #60 tabs lisinopril 20 1 tab PO DAILY #90 tabs 01/27/23 mg-hydrochlorothiazide 25 mg tablet hydrocortisone 2.5 % topical cream 1 applic LA BID-QID PRN 03/01/23 with perineal applicator hemorrhoids #30 grams (Anusol-HC) Allergies Allergy/AdvReac Type Severity Reaction Status Date / Time Penicillins AdvReac Intermediate Rash Verified 03/01/23 21:18 bandaids AdvReac Uncoded 03/01/23 21:18 General Stated Complaint: GI Bleed BRITTANY: 3 Review of Systems Narrative: Per HPI PFSH All Active Problems (Updated 03/01/23 @ 21:42 by Matt Jeffery MD) Bleeding external hemorrhoids (Acute) Abnormal findings on esophagogastroduodenoscopy (EGD) (Acute 09/16/18) EGD with Dr Olmedo, then followed by Dr Vallecillo, referred to [facility] Carpal tunnel syndrome of right wrist (Acute) Tendinitis of right rotator cuff (Acute) Chronic anticoagulation (Chronic) A. fib, on Eliquis Advanced care planning/counseling discussion (Acute) Renal insufficiency (Chronic) Medical History Adenocarcinoma of endometrium Stage 1A-grade 1: tx with surgery only ([email or web address].) 08/2011 [place] [facility] [place] Essential hypertension (07/06/13) Family history of premature CAD (04/28/18) father with [place] at age 45 and was a heavy smoker. 2 smoking siblings with CAD in 60's. Gallbladder Problem Gout Hyperlipidemia (04/07/13) Paroxysmal atrial fibrillation On Eliquis Scapular dyskinesis Syncope Surgical History Endometrial Biopsy [facility]-ADENOCARCINOMA, EDONMETRIAL TYPE, FIGO GARDE 1, WITH MUCINOUS FEATURES. History of eye surgery Injury to her right eye Required two surgeries History of hand surgery Left hand - for pain Unknown further details History of hysterectomy with bilateral oophorectomy History of shoulder surgery Left - unknown details Family History Mother Cancer Brother Heart disease Brother Cancer Sister Heart disease Sister Alcohol abuse Other Family history of premature CAD Social History Smoking/Tobacco Use Status: Never Second Hand Exposure: Yes Smoking risk assessment performed?: Yes Alcohol Intake: never Substance use type: does not use Household members: spouse Housing: apartment current occupation: [employer] Pets and animals: No Sexually active: No Do you think of yourself as: straight/heterosexual Current gender identity: female What is your relationship status?: How often do you talk on the phone with friends or family?: three or more times per week How often do you get together with friends or relatives?: three or more times per week How often do you attend anglican or lutheran services?: decline to answer Do you belong to any clubs or organized social groups?: no Panel score (0-1 are the most socially isolated patients): 2 What type of physical activity do you participate in: walking Duration: 30-45 minutes/day Frequency: 5-6 times per week Shannan/Spiritism: No preference Special shannan needs: No Seatbelt use: always Helmet use: Yes Helmet use: always Drive intox or ride w/intox local truck driver: No Do you feel safe at home: Yes Do you feel safe in your relationship?: Yes Exam Narrative Exam Narrative: Const: WDWN elderly female in NAD. HEENT: NC/AT. Normal facial exam. Neck: Supple. Trachea midline. Lungs: Normal respiratory effort. GI: Soft. NT/ND. No guarding or rebound. Rectal performed with female nurse present. Bleeding external hemorrhoid identified. Neuro: A+O x 3. Normal speech, mentation, gait. Cranial nerves II - XII grossly intact. No gross motor or sensory deficit. Ext: No C/C/E. Skin: Warm and dry without rash. Course Vital Signs Vital signs: Vital Signs Temperature 98.0 F 03/01/23 21:17 Pulse 74 03/01/23 21:17 Respiratory Rate 18 03/01/23 21:17 Blood Pressure 191/79 H 03/01/23 21:17 Pulse Oximetry 98 03/01/23 21:17 Temperature 98.0 F 03/01/23 21:17 Temperature Source Oral 03/01/23 21:17 Pulse 74 03/01/23 21:17 Respiratory Rate 18 03/01/23 21:17 Respiratory Effort Normal, Non-Labored 03/01/23 21:18 Blood Pressure 191/79 H 03/01/23 21:17 Pulse Oximetry 98 03/01/23 21:17 Oxygen Delivery Method Room Air 03/01/23 21:17 Oxygen Flow Rate 0 03/01/23 21:17
[2023-03-01] MEDS: Tranexamic Acid 1,000 MG/10 ML VIAL 500 MG NS (21:42)
== END 2023-03-01 22:03 | disposition home or self-care (01) ==
PROVIDERS: Emergency Provider Emergency Medicine; PCP Nurse Practitioner Family
DX: K64.4 Residual hemorrhoidal skin tags (principal)
CPT/HCPCS: 99283; 99284

== ENCOUNTER → 2023-03-11 13:18 | Outpatient (BNVA) | payer OTHER, SELFPAY | PROVIDERS: PCP Nurse Practitioner Family; Referring Provider Nurse Practitioner; Visit Provider Internal Medicine Cardiovascular Disease | DX: I48.0 Paroxysmal atrial fibrillation (principal); Z79.01 Long term (current) use of anticoagulants; I10 Essential (primary) hypertension | CPT/HCPCS: 99213 ==

== ENCOUNTER → 2023-03-13 08:45 | Outpatient (BNVA) | payer OTHER, SELFPAY | PROVIDERS: PCP Nurse Practitioner Family; Referring Provider Nurse Practitioner Family; Visit Provider Surgery | DX: K64.4 Residual hemorrhoidal skin tags (principal); K62.5 Hemorrhage of anus and rectum; Z79.01 Long term (current) use of anticoagulants | CPT/HCPCS: 99203; 99242 ==

== ENCOUNTER → 2023-07-08 17:19 | Outpatient (CLI) | payer OTHER, SELFPAY ==
--- NOTE | 2023-07-08 17:21 | DI.RAD_ITS ---
Exam(s) XR HIP RT COMPLETE AP PELVIS EXAM: XR HIP RT COMPLETE AP PELVIS CLINICAL HISTORY: evaluate pathology. TECHNIQUE: 2D digital imaging was performed. COMPARISON: No exams were available for comparison FINDINGS: 3 views No evidence of pelvic nor hip fracture. No prominent hip joint space narrowing but on the lateral vi ew of the right hip there is a small osteophyte on the femoral head noted. Bone density normal. No osseous lesions. Osteitis symphysis pubis noted. IMPRESSION: Mild degenerative changes in the right hip. DATA REPOSITORY: RADIATION DOSE DELIVERED:
--- NOTE | 2023-07-08 17:21 | DI.RAD_ITS ---
Exam(s) XR LUMBAR SPINE COMPLETE EXAM: XR LUMBAR SPINE COMPLETE CLINICAL HISTORY: evaluate pathology. TECHNIQUE: 2D digital imaging was performed. COMPARISON: No exams were available for comparison FINDINGS: Five views. No evidence of fracture. Minimal disc space narrowing L3-4 and L5-S1 levels. Mild degenerative ante rolisthesis L4 upon L5. No pars defects. No scoliosis. SI joints unremarkable. Facet joints exhib it only mild degenerative changes. Bone density normal. No osseous lesions. Calcification in the a liu is noted. IMPRESSION: Mild findings as described above. DATA REPOSITORY: RADIATION DOSE DELIVERED:
== END ==
PROVIDERS: PCP Nurse Practitioner Family; Visit Provider Nurse Practitioner Family
DX: M43.16 Spondylolisthesis, lumbar region (principal); M16.11 Unilateral primary osteoarthritis, right hip
CPT/HCPCS: 72110; 73502

== ENCOUNTER 2023-12-04 05:37 | Outpatient (CLI) | payer OTHER, SELFPAY ==
[2023-12-04 12:39] LABS: ALT 25 U/L (14-59); AST 22 U/L (15-37); Albumin 3.3 g/dL (3.4-5.0); Alkaline Phosphatase 101 U/L (46-116); Anion Gap 10.1 mmol/L (3-11); BUN 21 mg/dL (7-18); Bilirubin, Total 0.6 mg/dL (0.2-1.0); CO2 25.9 mmol/L (21.0-32.0); CREATININE 1.3 mg/dL (0.55-1.02); Calcium 8.8 mg/dL (8.5-10.1); Calculated LDL 96 mg/dL (<100); Chloride 107 mmol/L (98-107); Cholesterol 160 mg/dL (<200); Estimated GFR 42.09 (mL/min/1.73m2); Glucose 179 mg/dL (74-106); HDL Cholesterol 37 mg/dL (40-60); Potassium 3.8 mmol/L (3.5-5.1); Sodium 143 mmol/L (136-145); Total Protein 7.2 g/dL (6.4-8.2); Triglyceride 137 mg/dL (<150)
== END 2023-12-04 05:38 | disposition home or self-care (01) ==
LOC: LOS 05:37
PROVIDERS: PCP Nurse Practitioner Family; Visit Provider Nurse Practitioner Family
DX: E78.5 Hyperlipidemia, unspecified (principal)
CPT/HCPCS: 36415; 80053; 80061

== ENCOUNTER 2024-03-02 07:08 | Emergency (ER) | payer OTHER, SELFPAY ==
[2024-03-02] VITALS (44 sets, daily range): BP systolic 113–164; BP diastolic 41–69; PULSE 62–91; RESP 13–31; TEMP 36.7–36.9; O2SAT 94–100
--- NOTE | 2024-03-02 07:15 | RT.EKG_ITS ---
APPROVED REPORT Exam: Resting ECG Reason for Exam: weakness Patient Location: E HR:84 bpm ECG Measurements Heart Rate 84 AXIS WI 172 P -43 QRSd 87 QRS -2 QT 371 T -30 QTc 440 Conclusion Sinus rhythm...normal P axis, V-rate 60- 99
--- NOTE | 2024-03-02 07:31 | ED.GENADUL_ITS ---
Discharge Plan Disposition Patient Disposition: Home Condition: Stable Discharge Details Clinical Impression: Weakness, Pain in right shoulder, Upper back pain on right side, Leukocytosis, Elevated bilirubin Primary Care Provider: Joaquin Moss ED Provider: José Luis Karimi Home Meds and New Rx's Prescriptions: New cephalexin 500 mg tablet 500 mg PO QID Qty: 28 0RF Continued lidocaine 4 % adhesive patch,medicated 1 patch topical DAILY PRN (Reason: pain) Qty: 30 0RF warfarin 1 mg tablet 2 mg PO DAILY Qty: 180 3RF Protocol: Dose Management Condition: Friday Dose/Route: 1.5 mg Instruction: 1.5 x 1 mg tablets Condition: Friday Dose/Route: 2 mg Instruction: 2 x 1 mg tablets Condition: Friday Dose/Route: 1.5 mg Instruction: 1.5 x 1 mg tablets Condition: Friday Dose/Route: 1.5 mg Instruction: 1.5 x 1 mg tablets Condition: Dose/Route: 1.5 mg Instruction: 1.5 x 1 mg tablets Condition: Friday Dose/Route: 2 mg Instruction: 2 x 1 mg tablets Condition: Friday Dose/Route: 1.5 mg Instruction: 1.5 x 1 mg tablets Protocol Text: Adjustment Start Date: 02/26/24 INR Value: 2.5 INR Date: 02/26/24 Recheck Date: 03/04/24 omeprazole 40 mg capsule,delayed release(DR/EC) 40 mg PO DAILY Qty: 90 4RF atorvastatin 40 mg tablet 40 mg PO HS Qty: 90 4RF diltiazem HCl [Cardizem CD] 120 mg capsule,extended release 24hr 120 mg PO DAILY Qty: 90 4RF lisinopril-hydrochlorothiazide 20-25 mg tablet 1 tab PO DAILY Qty: 90 3RF diclofenac sodium [Arthritis Pain (diclofenac)] 1 % gel 4 g topical QID Qty: 100 4RF Rx Instructions: apply to single knee, ankle, foot; for foot includes sole/toes/top of foot metformin 500 mg tablet 500 mg PO BID Qty: 180 3RF warfarin 2.5 mg tablet 2.5 mg PO DAILY Qty: 90 0RF Protocol: Dose Management Condition: Friday Dose/Route: 1.5 mg Instruction: 1.5 x 1 mg tablets Condition: Friday Dose/Route: 2 mg Instruction: 2 x 1 mg tablets Condition: Friday Dose/Route: 1.5 mg Instruction: 1.5 x 1 mg tablets Condition: Friday Dose/Route: 1.5 mg Instruction: 1.5 x 1 mg tablets Condition: Dose/Route: 1.5 mg Instruction: 1.5 x 1 mg tablets Condition: Friday Dose/Route: 2 mg Instruction: 2 x 1 mg tablets Condition: Friday Dose/Route: 1.5 mg Instruction: 1.5 x 1 mg tablets Protocol Text: Adjustment Start Date: 02/26/24 INR Value: 2.5 INR Date: 02/26/24 Recheck Date: 03/04/24 hydrocortisone [Anusol-HC] 2.5 % cream with perineal applicator 1 applic AR BID-QID PRN (Reason: hemorrhoids) Qty: 30 0RF acetaminophen 500 mg tablet 500 mg PO Q6H PRN PRN (Reason: pain) Qty: 60 3RF Discharge Instructions Additional Instructions: 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 You can take 1000 mg of Tylenol every 6 hours as needed. Do not exceed 3000 mg in a 24-hour period If having residual symptoms follow-up with your primary care provider within 1 week Return to the emergency department if you have severe worsening shoulder pain, or new symptoms such as severe abdominal pain or high fevers Stand Alone Forms: Work Release HPI General Date/Time Provider Initiated Documentation: 03/02/24 07:09 . Limitations to Documentation: no limitations . Information obtained by: patient . History of Present Illness 78 year old F presents to the emergency department with the chief complaint of right shoulder pain, described as moderate, Patient started experiencing this day(s) (3) and it has been constant. No relieving factors improve symptom(s), No exacerbating factors reported . Patient notes weakness; denies fever/chills and nausea/vomiting. Patient did receive the following treatments prior to arrival, none Related Data Home Medications Medication Instructions Recorded Confirmed acetaminophen 500 mg tablet 500 mg PO Q6H PRN PRN pain #60 tabs 05/19/19 03/02/24 hydrocortisone 2.5 % topical cream 1 applic AR BID-QID PRN 03/01/23 03/02/24 with perineal applicator hemorrhoids #30 grams (Anusol-HC) warfarin 2.5 mg tablet 2.5 mg PO DAILY #90 tabs 06/10/23 03/02/24 lidocaine 4 % topical patch 1 patch topical DAILY PRN pain #30 07/08/23 03/02/24 ea warfarin 1 mg tablet 2 mg PO DAILY #180 tabs 08/14/23 03/02/24 atorvastatin 40 mg tablet 40 mg PO HS #90 tabs 12/11/23 03/02/24 diclofenac sodium 1 % topical gel 4 g topical QID #100 grams 12/11/23 03/02/24 (Arthritis Pain (diclofenac)) diltiazem HCl 120 mg 120 mg PO DAILY #90 caps 12/11/23 03/02/24 capsule,extended release 24 hr (Cardizem CD) lisinopril 20 1 tab PO DAILY #90 tabs 12/11/23 03/02/24 mg-hydrochlorothiazide 25 mg tablet metformin 500 mg tablet 500 mg PO BID #180 tabs 12/11/23 03/02/24 omeprazole 40 mg capsule,delayed 40 mg PO DAILY #90 caps 12/11/23 03/02/24 release cephalexin 500 mg tablet 500 mg PO QID #28 tabs 03/02/24 Previous Rx's Medication Instructions Recorded acetaminophen 500 mg tablet 500 mg PO Q6H PRN PRN pain #60 tabs 05/19/19 hydrocortisone 2.5 % topical cream 1 applic AR BID-QID PRN 03/01/23 with perineal applicator hemorrhoids #30 grams (Anusol-) warfarin 2.5 mg tablet 2.5 mg PO DAILY #90 tabs 06/10/23 lidocaine 4 % topical patch 1 patch topical DAILY PRN pain #30 07/08/23 ea warfarin 1 mg tablet 2 mg PO DAILY #180 tabs 08/14/23 atorvastatin 40 mg tablet 40 mg PO HS #90 tabs 12/11/23 diclofenac sodium 1 % topical gel 4 g topical QID #100 grams 12/11/23 (Arthritis Pain (diclofenac)) diltiazem HCl 120 mg 120 mg PO DAILY #90 caps 12/11/23 capsule,extended release 24 hr (Cardizem CD) lisinopril 20 1 tab PO DAILY #90 tabs 12/11/23 mg-hydrochlorothiazide 25 mg tablet metformin 500 mg tablet 500 mg PO BID #180 tabs 12/11/23 omeprazole 40 mg capsule,delayed 40 mg PO DAILY #90 caps 12/11/23 release cephalexin 500 mg tablet 500 mg PO QID #28 tabs 03/02/24 Allergies Allergy/AdvReac Type Severity Reaction Status Date / Time Penicillins AdvReac Intermediate Rash Verified 03/02/24 07:14 bandaids AdvReac Mild breaks Uncoded 03/02/24 07:14 out General Stated Complaint: GenMedical BRITTANY: 3 Review of Systems All systems reviewed & are unremarkable except as noted in HPI and below Constitutional Constitutional: Denies chills, Denies fever(s) and Reports weakness Cardiovascular Cardiovascular: Denies chest pain and Denies dyspnea Respiratory Respiratory: Denies cough and Denies dyspnea Gastrointestinal Gastrointestinal: Denies abdominal pain, Denies nausea and Denies vomiting Musculoskeletal Musculoskeletal: Denies joint swelling Integumentary/Breasts Skin/Breast: Denies rash Neurologic Neurologic: Reports weakness Exam Const General: no acute distress Orientation: alert HENMT Head: normal to inspection Ears: external ears normal General nose exam: external nose normal Mouth: moist mucous membranes Eyes General: appearance normal, both eyes and all related structures Neck Neck: normal visual inspection Resp Effort & Inspection: normal respiratory effort and able to speak in complete sentences Auscultation: clear to auscultation bilaterally Cardio Jugular venous pressure: no JVD Rate: regular rate GI Palpation: soft and nontender Skin General skin exam: no rashes or lesions noted Neuro General: patient alert and patient oriented x3 Extrem General: normal to inspection and capillary refill normal Psych Mental Status: mental status grossly normal Course Vital Signs Vital signs: Vital Signs Temperature 36.7 C 03/02/24 07:12 Pulse 91 H 03/02/24 07:12 Respiratory Rate 18 03/02/24 07:12 Blood Pressure 162/69 H 03/02/24 07:12 Pulse Oximetry 96 03/02/24 07:12 Temperature 36.7 C 03/02/24 07:14 Temperature Source Temporal Artery Scan 03/02/24 07:14 Pulse 91 H 03/02/24 07:14 Respiratory Rate 18 03/02/24 07:27 Respiratory Effort Normal, Non-Labored 03/02/24 07:27 Respiratory Depth Normal 03/02/24 07:27 Blood Pressure 162/69 H 03/02/24 07:14 Blood Pressure Position Sitting 03/02/24 07:14 Pulse Oximetry 96 03/02/24 07:14 Oxygen Delivery Method Room Air 03/02/24 07:14 Oxygen Flow Rate 0 03/02/24 07:14 Medical Decision Making 78-year-old female with a history of A-fib, hypertension who comes in with 3 days of nontraumatic right shoulder pain and just general fatigue stating she feels like she has no energy. She denies any trauma, no fevers or chills, no headaches, no chest pain or difficulty breathing, no abdominal pain or vomiting. Denies any dark stools. She is alert and oriented on arrival speaking clearly in no distress. She has reproducible right anterior shoulder tenderness. There is no significant swelling, no erythema, no warmth, no tenderness elsewhere in the arm and has no swelling of the arm with intact distal sensation and pulses. No focal neurological deficits. Unclear etiology for his symptoms, she is no findings on exam to suggest septic joint but will send screening labs including CBC, CMP CRP and sed rate along with a lactate and procalcitonin. Will obtain x-rays to exclude pathological fracture. No focal deficits and her main complaint is having lack of energy so doubt entities such as CVA. Patient feels improved but still has pain now localized to the right scapula. She does have a white count of 18, procalcitonin in the indeterminate range 0.7, UA unremarkable. X-rays unremarkable. She still has absolutely no headache and has full range of motion of her neck so doubt DEVELOPMENT MECHANIC infection. Given her leukocytosis, bilirubin over 1.0, will obtain a CT of her shoulder to evaluate for possible osteomyelitis, and also obtain CT chest abdomen pelvis to exclude pneumonia not visible on chest x-ray and also evaluate for liver or gallbladder pathology. While waiting for results will give a dose of cefepime. She has no abdominal tenderness so doubt cholecystitis. could have cholangitis with elevated bilirubin. patient's conjugated bili normal. CT's essentially negative other then gall stones without evidence of cholecystitis, lipase was normal. She has no pain and has no symptoms now feels better requesting discharge. Unclear if she may have had a small gallstone that she passed given the referred right shoulder pain. She has no skin findings, full range of motion of the shoulder now and has no joint effusion on CT. She does have evidence of tendinitis and chronic arthritic changes. Discussed observation admission but given she has no symptoms now she declines. Her UA was not concerning for a uti but she has noted some burning with urination, after discussing with her will cover with cephalexin for possible uti. She will follow-up with her PCP within a week and return precautions given Differential Diagnosis Differential Diagnosis: Bursitis, anemia, tendinitis Medical Records Medical records reviewed: Yes I reviewed the patient's medical records. Imaging Data Radiologic Study: Attestation: I personally reviewed and interpreted this imaging study as follows: Imaging: X-Ray Radiologist's impression: Exam(s) XR SHOULDER RT COMPLETE 2+V EXAM: XR SHOULDER RT COMPLETE 2+V CLINICAL HISTORY: pain. TECHNIQUE: 2D digital imaging was performed. COMPARISON: CR XR shoulder RT complete 2+V from 02/22/2019 FINDINGS: Six views No evidence of fracture or dislocation. Subacromial space is not diminished. However, there is a 6 x 3 millimeter calcific density in the soft tissues immediately adjacent to the greater tuberosity consistent with calcific rotator cuff tendinitis/bursitis. There are mild-moderate degenerative changes in the AC joint. No obvious degenerative changes in the glenohumeral joint. IMPRESSION: Calcific rotator cuff tendinitis/bursitis Radiologic Study #2: Attestation: I personally reviewed and interpreted this imaging study as follows: Imaging: X-Ray Radiologist's impression: Patient Name: Eileen Hernandez Unit #: [id number] Loc: ER Ordering Provider: José Luis Karimi M.D. Status: [facility] ER Primary Care Provider: Joaquin Moss NP Date of Exam: 03/02/24 Sex: F Admission Date: 03/02/24 : 1945 Age: 78 Exam(s) XR CHEST 2V PA LATERAL EXAM: XR CHEST 2V PA LATERAL CLINICAL HISTORY: right upper chest pain. TECHNIQUE: 2D digital imaging was performed. COMPARISON: No exams were available for comparison FINDINGS: 2 views: Heart size is normal. The mediastinum is not widened. Lungs are clear. No infiltrates nor pleural effusions. Calcific density seen adjacent to the greater tuberosity of the right shoulder consistent with calcific rotator cuff tendinitis IMPRESSION: No acute pulmonary findings. Right shoulder calcific rotator cuff tendinitis. Lab Data Lab results reviewed: Yes I reviewed the patient's lab results. ECG Data Attestation: I personally reviewed and interpreted this ECG (s) as follows: Prior ECG tracings: available for review Interpretation: Sinus rhythm, rate of 84, AR 172, no STEMI Quality:SDOH Health Related Social Needs: No Data to Display PFSH All Active Problems (Updated 03/02/24 @ 12:17 by José Luis Karimi MD) Elevated bilirubin (Acute) Leukocytosis (Acute) Upper back pain on right side (Acute) Pain in right shoulder (Acute) Weakness (Acute) Paroxysmal atrial fibrillation (Acute) Abnormal findings on esophagogastroduodenoscopy (EGD) (Acute 09/16/18) EGD with Dr Olmedo, then followed by Dr Vallecillo, referred to [facility] GI Chronic anticoagulation (Chronic) Back on Warfarin Jun 12, 2023 Tendinitis of right rotator cuff (Acute) Carpal tunnel syndrome of right wrist (Acute) Advanced care planning/counseling discussion (Acute) Renal insufficiency (Chronic) Rectal bleeding (Acute) Constipation (Acute) Medical History Syncope Scapular dyskinesis Gallbladder Problem Hyperlipidemia (04/07/13) Gout Family history of premature CAD (04/28/18) father with DC at age 45 and was a heavy smoker. 2 smoking siblings with CAD in 60's. 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 - [employer] Pets and animals: No Sexually active: No Do you think of yourself as: straight/heterosexual Current gender identity: female What is your relationship status?: How often do you talk on the phone with friends or family?: three or more times per week How often do you get together with friends or relatives?: three or more times per week How often do you attend yarsani or alevism services?: decline to answer Do you belong to any clubs or organized social groups?: yes Panel score (0-1 are the most socially isolated patients): 3 What type of physical activity do you participate in: walking Duration: 30-45 minutes/day Frequency: 5-6 times per week Shannan/Restorationist: No preference Special shannan needs: No Seatbelt use: always Helmet use: Yes Helmet use: always Drive intox or ride w/intox bus driver supervisor: No Firearms in home: Yes Firearms unloaded and locked: Yes Do you feel safe at home: Yes Do you feel safe in your relationship?: Yes Would you like helpful sources: No
--- NOTE | 2024-03-02 08:03 | DI.RAD_ITS ---
Exam(s) XR SHOULDER RT COMPLETE 2+V EXAM: XR SHOULDER RT COMPLETE 2+V CLINICAL HISTORY: pain. TECHNIQUE: 2D digital imaging was performed. COMPARISON: CR XR shoulder RT complete 2+V from 02/22/2019 FINDINGS: Six views No evidence of fracture or dislocation. Subacromial space is not diminished. However, there is a 6 x 3 millimeter calcific density in the soft tissues immediately adjacent to the greater tuberosity co nsistent with calcific rotator cuff tendinitis/bursitis. There are mild-moderate degenerative change s in the AC joint. No obvious degenerative changes in the glenohumeral joint. IMPRESSION: Calcific rotator cuff tendinitis/bursitis DATA REPOSITORY: RADIATION DOSE DELIVERED:
--- NOTE | 2024-03-02 08:03 | DI.RAD_ITS ---
Exam(s) XR CHEST 2V PA LATERAL EXAM: XR CHEST 2V PA LATERAL CLINICAL HISTORY: right upper chest pain. TECHNIQUE: 2D digital imaging was performed. COMPARISON: No exams were available for comparison FINDINGS: 2 views: Heart size is normal. The mediastinum is not widened. Lungs are clear. No infiltrates nor pleural effusions. Calcific density seen adjacent to the greater tuberosity of the right shoulder consistent with calcif ic rotator cuff tendinitis IMPRESSION: No acute pulmonary findings. Right shoulder calcific rotator cuff tendinitis. DATA REPOSITORY: RADIATION DOSE DELIVERED:
[2024-03-02 08:17] LABS: Abs Immature Grans 0.11 10^3/uL (0.0-0.06); Absolute Monocyte Count 0.65 10^3/uL (0.1-0.8); Basophils % 0.2 %; Eosinophils % 0.4 %; HCT 43.3 % (36.0-46.0); HGB 14.3 g/dL (11.2-15.7); Immature Grans % 0.6 %; MCH 29.9 pg (27.0-33.0); MCV 90 fL (80-95); MPV 10.1 fL (8.0-11.0); Monocytes % 3.6 %; Neutrophils % 93.2 %; Platelet Count 174 10^3/uL (130-400); RBC 4.79 10^6/uL (3.93-5.22); RDW 13.1 % (11.7-14.6); RDW-SD 43.6 fL; WBC 18.08 10^3/uL (4.4-10.8)
[2024-03-02 08:18] LABS: Absolute Basophil Count 0.04 10^3/uL (0.0-0.2); Absolute Eosinophil Count 0.07 10^3/uL (0.0-0.7); Absolute Lymphocyte Count 0.36 10^3/uL (1.2-3.4); Absolute Neutrophil Count 16.85 10^3/uL (1.2-6.7); Lactate 2.1 mmol/L (0.6-1.4)
[2024-03-02 08:20] LABS: ESR 37 mm/hr (0-30)
[2024-03-02] MEDS: ACETAMINOPHEN 1,000 MG/100 ML BTL 400 MG IVPB (08:23)
[2024-03-02 08:31] LABS: INR 1.6 (0.9-1.1); PTT Activated 37.3 sec (23.6-32.8); Prothrombin Time 15.1 sec (9.1-11.1)
[2024-03-02 08:36] LABS: ALT 28 U/L (14-59); AST 19 U/L (15-37); Albumin 3.4 g/dL (3.4-5.0); Alkaline Phosphatase 98 U/L (46-116); Anion Gap 12.2 mmol/L (3-11); BUN 22 mg/dL (7-18); Bilirubin, Total 1.1 mg/dL (0.2-1.0); C-Reactive Protein 13.34 mg/dL (<or=0.5); CO2 24.8 mmol/L (21.0-32.0); CREATININE 1.4 mg/dL (0.55-1.02); Calcium 8.8 mg/dL (8.5-10.1); Chloride 99 mmol/L (98-107); Estimated GFR 38.51 (mL/min/1.73m2); Glucose 215 mg/dL (74-106); Magnesium 1.6 mg/dL (1.8-2.4); Potassium 3.4 mmol/L (3.5-5.1); Sodium 136 mmol/L (136-145); Total Protein 7.8 g/dL (6.4-8.2); Troponin I < 50 ng/L (< or =60)
[2024-03-02 08:49] LABS: Procalcitonin 0.7 ng/mL
[2024-03-02 09:03] LABS: Bilirubin Negative (Negative); Blood Trace-lysed (Negative); Clarity Sl Cloudy (Clear); Glucose Negative (Negative); Ketones Negative (Negative); Leukocyte Esterase Negative (Negative); Nitrite Negative (Negative); Specific Gravity >= 1.030 (1.005-1.025); pH 5.5 (5-8)
[2024-03-02 09:12] LABS: Bacteria Few HPF (Negative); Crystals Negative HPF (Negative); Epithelial Cells Moderate HPF (Negative); Mucus Negative (Negative); RBC 0-2 HPF (0-2)
[2024-03-02 09:13] LABS: C & S Indicated? No/Sq. Contamination; Casts 0-2 Hyaline LPF (Negative)
--- NOTE | 2024-03-02 09:15 | DI.CT_ITS ---
Exam(s) CT CHEST/ABD/PEL W EXAM: CT CHEST/ABD/PEL W CLINICAL HISTORY: right upper back pain, increase wbc, increase bili. TECHNIQUE: Imaging Protocol: Axial computed tomography images with coronal and sagittal reformatted images were created and reviewed CONTRAST MATERIAL: Intravenous: Omnipaque 350 Contrast volume:100 ml Oral: None COMPARISON: CR XR CHEST 2V PA LATERAL from 03/02/2024 CR XR SHOULDER RT COMPLETE 2+V from 03/02/2024 FINDINGS: CHEST: LUNGS: No infiltrates nor pleural effusions. Mild platelike atelectasis in the right middle lobe not ed.. No ominous pulmonary nodules. MEDIASTINUM: There is no hilar nor mediastinal adenopathy. Visualized thyroid unremarkable. CARDIAC: Heart size is normal. There is no pericardial effusion.Caliber of the thoracic aorta is wit hin normal limits. OSSEOUS: No significant osseous lesions.No fractures.. ABDOMEN: There is no ascites. LIVER: There are no focal hepatic lesions nor dilatation of intrahepatic ducts. GALLBLADDER/BILIARY: There are multiple tiny layering gallstones in the gallbladder lumen. Gallbladd er is not overly distended nor edematous and there is no pericholecystic fluid. There are no obvious radiopaque calculi seen in the nondilated CBD. PANCREAS: There is mild streaking around the pancreatic tail noted, possibly related to pancreatitis. SPLEEN: Spleen is not enlarged. There are no intrasplenic lesions. Splenic and portal veins are greene nt. ADRENALS: There are no significant adrenal masses. KIDNEYS: No calculi nor hydronephrosis. No solid renal masses. No cysts evident. ABDOMINAL AORTA: Abdominal aorta is heavily calcified but not enlarged. Common iliac arteries are ca lcified but not enlarged. LYMPH NODES: There is no retroperitoneal nor paraaortic adenopathy. ABDOMINAL WALL: No evidence of significant anterior abdominal wall nor inguinal hernia. GI: There is no evidence of bowel obstruction.No free air. No abscess. PELVIS: LYMPH NODES: There is no intrapelvic nor inguinal adenopathy. GI: Appendix is not identified as a separate structure but there is no evidence of obvious appendicit is.No evidence of sigmoid diverticulitis. URINARY BLADDER: No calculi nor masses evident REPRODUCTIVE: Uterus is surgically absent. There are no abnormal adnexal masses. No free fluid in t he pelvis. OSSEOUS: No significant osseous lesions. No fractures. Density around the sacroiliac joints possibly indicating sacroiliitis. There is no an kylosis of the SI joints. IMPRESSION: 1. No significant intrathoracic findings. 2. Cholelithiasis. There are multiple tiny gallstones noted in the gallbladder lumen. The gallbladd er does not appear edematous nor distended and there is no pericholecystic fluid. No dilatation of t he CBD. No obvious calculi seen within the CBD. 3. There is mild streaking around the pancreatic tail. Cannot exclude subtle pancreatitis. This str eaking may be exaggerated by motion artifact here. 4. Previous hysterectomy. No pelvic masses nor free fluid. RADIATION DOSE DELIVERED: 893.87mGy.cm Total DLP DATA REPOSITORY: All CT scans at this facility are submitted to the National Radiology Data Registry (NRDR) Dose Index Registry (DIR) with the [employer] (ACR). RADIATION OPTIMIZATION: All CT scans at this facility use at least one of these dose optimization te chniques: automated exposure control; mA and/or kV adjustment per patient size (includes targeted exa ms where dose is matched to clinical indication); or iterative reconstruction.
--- NOTE | 2024-03-02 09:15 | DI.CT_ITS ---
Exam(s) CT UPPER EXTREMITY RT WO EXAM: CT UPPER EXTREMITY RT WO CLINICAL HISTORY: elevated wbc, ?osteomyelitis TECHNIQUE: Imaging Protocol: Axial computed tomography images with coronal and sagittal reformatted images were created and reviewed. CONTRAST MATERIAL: Intravenous: Omnipaque 350 Contrast volume:structured data in ml Contrast route:I V - Oral: yes / no COMPARISON: CT CT CHEST/ABD/PEL W from 03/02/2024 FINDINGS: There are no fractures nor dislocation. Degenerative subarticular cysts are noted in the superior as pect of the osseous glenoid as well as in the lateral aspect of the humeral head-greater tuberosity r egion. In addition, there is a 6 x 2 millimeter calcification in the soft tissues immediately adjacent to th e greater tuberosity of the humeral head which is most probably calcific rotator cuff tendinitis. Th is corresponds what is seen on plain films. Otherwise, there are moderate degenerative changes in the AC joint. IMPRESSION: There is a 6 x 2 millimeter calcific density adjacent to the lateral aspect of the humeral head-great er tuberosity as described above. Consistent with calcific rotator cuff tendinitis. Discussed with ER physician. RADIATION DOSE DELIVERED: 219.48mGy.cm Total DLP DATA REPOSITORY: All CT scans at this facility are submitted to the National Radiology Data Registry (NRDR) Dose Index Registry (DIR) with the [employer] (ACR). RADIATION OPTIMIZATION: All CT scans at this facility use at least one of these dose optimization te chniques: automated exposure control; mA and/or kV adjustment per patient size (includes targeted exa ms where dose is matched to clinical indication); or iterative reconstruction.
[2024-03-02 10:24] LABS: Bilirubin, Direct 0.2 mg/dL (0.0-0.2)
[2024-03-02] MEDS: Normal Saline - Diluent 50 ML VIAL IJ (10:38)
[2024-03-02] MEDS: Omnipaque 350 MG/ML 500 ML BTL-Imaging package IJ (10:40)
[2024-03-02] MEDS: CEFEPIME 2 GM in Normal Saline 100 ML IVPB (10:46)
[2024-03-02] MEDS: MAGNESIUM SULFATE 2 GM/50 ML BAG IVINF (11:32)
[2024-03-02 11:51] LABS: Lipase 14 U/L (16-77)
--- NOTE | 2024-03-02 23:40 | W.ED.FU ---
Date of service: 03/02/24 Time of Service: 23:40 Follow Up Plan: This patient had 2 sets of blood cultures return positive from a visit earlier in the day today. She was growing gram-positive cocci in chains in both aerobic and anaerobic bottles. She reported not eating or drinking well at home and a culture. She did feel slightly improved. She was nauseous. She had not been vomiting. She denies fevers and syncope. I advised her that given her positive blood culture she should return to the emergency department. Patient reported that her was sleeping and that she would come in the morning. I advised that the patient call an ambulance but she reported that she would come in with her in the morning.
== END 2024-03-02 12:31 | disposition home or self-care (01) ==
PROVIDERS: Emergency Provider Emergency Medicine; PCP Nurse Practitioner Family
DX: M25.511 Pain in right shoulder (principal); M54.6 Pain in thoracic spine; D72.829 Elevated white blood cell count, unspecified; E80.6 Other disorders of bilirubin metabolism; I48.0 Paroxysmal atrial fibrillation; I10 Essential (primary) hypertension; E11.9 Type 2 diabetes mellitus without complications; Z79.84 Long term (current) use of oral hypoglycemic drugs; Z79.01 Long term (current) use of anticoagulants
CPT/HCPCS: 36410; 36415; 74177; 80053; 83690; 84145; 85652; 87040; 87077; 93005; 96365; 96367; 96375; 99285; 71046; 71260; 73030; 73200; 81003; 81015; 82248; 83605; 83735; 84484; 85025; 85610; 85730; 86140; 87186; 93010; 99284; J0131; J0692; J3475

== ENCOUNTER 2024-03-03 03:17 | Observation (INO) | payer OTHER, SELFPAY ==
[2024-03-03] VITALS (31 sets, daily range): BP systolic 145–192; BP diastolic 61–98; PULSE 61–74; RESP 15–24; TEMP 36.4–36.8; O2SAT 95–100
--- NOTE | 2024-03-03 03:23 | W.ED.GENAD ---
Discharge Plan Disposition Patient Disposition: Admit to [facility] Condition: Fair Discharge Details Clinical Impression: Right upper quadrant abdominal pain, Positive blood cultures Primary Care Provider: Joaquin Moss ED Provider: Matt Jeffery [place] Meds and New Rx's Prescriptions: No Action lidocaine 4 % adhesive patch,medicated 1 patch topical DAILY PRN (Reason: pain) Qty: 30 0RF warfarin 1 mg tablet 2 mg PO DAILY Qty: 180 3RF Protocol: Dose Management Condition: Friday Dose/Route: 1.5 mg Instruction: 1.5 x 1 mg tablets Condition: Friday Dose/Route: 2 mg Instruction: 2 x 1 mg tablets Condition: Friday Dose/Route: 1.5 mg Instruction: 1.5 x 1 mg tablets Condition: Friday Dose/Route: 1.5 mg Instruction: 1.5 x 1 mg tablets Condition: Dose/Route: 1.5 mg Instruction: 1.5 x 1 mg tablets Condition: Friday Dose/Route: 2 mg Instruction: 2 x 1 mg tablets Condition: Friday Dose/Route: 1.5 mg Instruction: 1.5 x 1 mg tablets Protocol Text: Adjustment Start Date: 02/26/24 INR Value: 2.5 INR Date: 02/26/24 Recheck Date: 03/04/24 omeprazole 40 mg capsule,delayed release(DR/EC) 40 mg PO DAILY Qty: 90 4RF atorvastatin 40 mg tablet 40 mg PO HS Qty: 90 4RF diltiazem HCl [Cardizem CD] 120 mg capsule,extended release 24hr 120 mg PO DAILY Qty: 90 4RF lisinopril-hydrochlorothiazide 20-25 mg tablet 1 tab PO DAILY Qty: 90 3RF diclofenac sodium [Arthritis Pain (diclofenac)] 1 % gel 4 g topical QID Qty: 100 4RF Rx Instructions: apply to single knee, ankle, foot; for foot includes sole/toes/top of foot metformin 500 mg tablet 500 mg PO BID Qty: 180 3RF warfarin 2.5 mg tablet 2.5 mg PO DAILY Qty: 90 0RF Protocol: Dose Management Condition: Friday Dose/Route: 1.5 mg Instruction: 1.5 x 1 mg tablets Condition: Friday Dose/Route: 2 mg Instruction: 2 x 1 mg tablets Condition: Friday Dose/Route: 1.5 mg Instruction: 1.5 x 1 mg tablets Condition: Friday Dose/Route: 1.5 mg Instruction: 1.5 x 1 mg tablets Condition: Dose/Route: 1.5 mg Instruction: 1.5 x 1 mg tablets Condition: Friday Dose/Route: 2 mg Instruction: 2 x 1 mg tablets Condition: Friday Dose/Route: 1.5 mg Instruction: 1.5 x 1 mg tablets Protocol Text: Adjustment Start Date: 02/26/24 INR Value: 2.5 INR Date: 02/26/24 Recheck Date: 03/04/24 hydrocortisone [Anusol-HC] 2.5 % cream with perineal applicator 1 applic NM BID-QID PRN (Reason: hemorrhoids) Qty: 30 0RF cephalexin 500 mg tablet 500 mg PO QID Qty: 28 0RF acetaminophen 500 mg tablet 500 mg PO Q6H PRN PRN (Reason: pain) Qty: 60 3RF HPI General Mode of arrival: ambulatory. Date/Time Provider Initiated Documentation: 03/03/24 03:23. Limitations to Documentation: no limitations. Information obtained by: patient, RN notes reviewed and old records reviewed. HPI Narrative: Patient presents to ED after being called back due to positive blood cultures. Patient seen yesterday morning for generalized weakness, right shoulder pain. She had extensive workup performed including labs, imaging. Of note she had a markedly elevated white count, mildly elevated bilirubin, CT scan of her right shoulder and the chest/abdomen/pelvis with no significant abnormalities noted. She did have gallstones in her gallbladder but no evidence of bile duct dilatation or cholecystitis. No report of effusion or osteo on shoulder CT. She did receive 2 g of cefepime. She has an aerobic as well as anaerobic bottle growing gram-positive cocci. She reports feeling okay at home. Still has abdominal pain though not severe. Has been drinking but not eating. Has had dry heaves. Related Data Home Medications Medication Instructions Recorded Confirmed acetaminophen 500 mg tablet 500 mg PO Q6H PRN PRN pain #60 tabs 05/19/19 03/03/24 hydrocortisone 2.5 % topical cream 1 applic NM BID-QID PRN 03/01/23 03/03/24 with perineal applicator hemorrhoids #30 grams (Anusol-HC) warfarin 2.5 mg tablet 2.5 mg PO DAILY #90 tabs 06/10/23 03/03/24 lidocaine 4 % topical patch 1 patch topical DAILY PRN pain #30 07/08/23 03/02/24 ea warfarin 1 mg tablet 2 mg PO DAILY #180 tabs 08/14/23 03/03/24 atorvastatin 40 mg tablet 40 mg PO HS #90 tabs 12/11/23 03/03/24 diclofenac sodium 1 % topical gel 4 g topical QID #100 grams 12/11/23 03/03/24 (Arthritis Pain (diclofenac)) diltiazem HCl 120 mg 120 mg PO DAILY #90 caps 12/11/23 03/03/24 capsule,extended release 24 hr (Cardizem CD) lisinopril 20 1 tab PO DAILY #90 tabs 12/11/23 03/03/24 mg-hydrochlorothiazide 25 mg tablet metformin 500 mg tablet 500 mg PO BID #180 tabs 12/11/23 03/03/24 omeprazole 40 mg capsule,delayed 40 mg PO DAILY #90 caps 12/11/23 03/03/24 release cephalexin 500 mg tablet 500 mg PO QID #28 tabs 03/02/24 03/03/24 Previous Rx's Medication Instructions Recorded acetaminophen 500 mg tablet 500 mg PO Q6H PRN PRN pain #60 tabs 05/19/19 hydrocortisone 2.5 % topical cream 1 applic NM BID-QID PRN 03/01/23 with perineal applicator hemorrhoids #30 grams (Anusol-HC) warfarin 2.5 mg tablet 2.5 mg PO DAILY #90 tabs 06/10/23 lidocaine 4 % topical patch 1 patch topical DAILY PRN pain #30 07/08/23 ea warfarin 1 mg tablet 2 mg PO DAILY #180 tabs 08/14/23 atorvastatin 40 mg tablet 40 mg PO HS #90 tabs 12/11/23 diclofenac sodium 1 % topical gel 4 g topical QID #100 grams 12/11/23 (Arthritis Pain (diclofenac)) diltiazem HCl 120 mg 120 mg PO DAILY #90 caps 12/11/23 capsule,extended release 24 hr (Cardizem CD) lisinopril 20 1 tab PO DAILY #90 tabs 12/11/23 mg-hydrochlorothiazide 25 mg tablet metformin 500 mg tablet 500 mg PO BID #180 tabs 12/11/23 omeprazole 40 mg capsule,delayed 40 mg PO DAILY #90 caps 12/11/23 release cephalexin 500 mg tablet 500 mg PO QID #28 tabs 03/02/24 Allergies Allergy/AdvReac Type Severity Reaction Status Date / Time Penicillins AdvReac Intermediate Rash Verified 03/03/24 05:33 bandaids AdvReac Mild breaks Uncoded 03/03/24 05:33 out General BRITTANY: 3 Review of Systems Narrative: Per HPI Exam Narrative Exam Narrative: Const: WDWN elderly female in NAD. VS per triage. HEENT: NC/AT. Normal facial exam. Neck: Supple. Trachea midline. Lungs: Normal respiratory effort. Lungs are clear. Cor: RRR with murmur. Good radial pulses. GI: Soft/ND. Mildly tender in the RUQ without guarding or rebound. Neuro: A+O x 3. Normal speech, mentation, gait. Cranial nerves II - XII grossly intact. No gross motor or sensory deficit. Ext: No C/C/E. Right shoulder without erythema or warmth. Fairly decent range of motion though with discomfort. Medical Decision Making Patient returning to ED after receiving a call from Dr. Alicea regarding positive blood cultures. She was seen yesterday morning for right shoulder pain and generalized weakness. She improved with some fluids and a dose of cefepime which presumably was given for a white count of 18,000. Extensive workup with no clear etiology for her elevated white count. Subsequently has an aerobic as well as anaerobic bottle growing gram-positive cocci. Patient reports that she has been feeling okay at home. Still is not eating. Admits to dry heaves and continued abdominal pain though described by patient as mild. Also continues to have some mild right shoulder pain. Denies fever or chills. Has been ambulating okay at home. IV reestablished repeat blood cultures obtained as well as repeat labs. Patient's white count this morning is now 6.7. Her lactic acid is now normal at 1.3. Sed rate and C-reactive protein remain elevated. Kidney function remains stable. Total bilirubin has dropped back to normal at 0.8. AST is now elevated at 45. Lipase normal at 17. Potassium being replaced as it is now dropped to 3.2. Reached out and discussed case with infectious disease at [facility], Dr. Rodríguez. Given the mild right upper quadrant pain with elevated bilirubin previously and gallstones on CT the thought is this is likely GI translocation resulting in the positive blood cultures. Recommend admission to hospitalist service, continue antibiotics, right upper quadrant ultrasound this morning. Consider MRCP. Discussed with hospitalist, Dr. Flynn. Patient accepted to hospitalist service for further evaluation and management. Medical Records Medical records reviewed: Yes I reviewed the patient's medical records. Lab Data Lab results reviewed: Yes I reviewed the patient's lab results. Lab results narrative: See MDM Quality:SDOH Health Related Social Needs: No Data to Display [facility] All Active Problems (Updated 03/03/24 @ 05:57 by Matt Jeffery MD) Positive blood cultures (Acute) Right upper quadrant abdominal pain (Acute) Gallbladder Problem (Acute) Scapular dyskinesis (Acute) Syncope (Chronic) Elevated bilirubin (Acute) Leukocytosis (Acute) Upper back pain on right side (Acute) Pain in right shoulder (Acute) Weakness (Acute) Abnormal findings on esophagogastroduodenoscopy (EGD) (Acute 09/16/18) EGD with Dr Olmedo, then followed by Dr Vallecillo, referred to [facility] Chronic anticoagulation (Chronic) Back on Warfarin Jun 12, 2023 Tendinitis of right rotator cuff (Acute) Carpal tunnel syndrome of right wrist (Acute) Advanced care planning/counseling discussion (Acute) Rectal bleeding (Acute) Constipation (Acute) Medical History Renal insufficiency Paroxysmal atrial fibrillation Hyperlipidemia (04/07/13) Gout Family history of premature CAD (04/28/18) father with VT at age 45 and was a heavy smoker. 2 smoking siblings with CAD in 60's. 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 Family History Mother Cancer Brother Heart disease Brother Cancer Sister Heart disease Sister Alcohol abuse Other Family history of premature CAD Social History Smoking/Tobacco Use Status: Never Second Hand Exposure: Yes Smoking risk assessment performed?: Yes Alcohol Intake: never Drug use: Never Substance use type: does not use Adopted: No Household members: spouse Housing: other Details: trailer Education Level: middle school Details: 8 years current occupation: [employer] Pets and animals: No Sexually active: No Do you think of yourself as: straight/heterosexual Current gender identity: female What is your relationship status?: How often do you talk on the phone with friends or family?: three or more times per week How often do you get together with friends or relatives?: three or more times per week How often do you attend hindu or confucianism services?: decline to answer Do you belong to any clubs or organized social groups?: yes Panel score (0-1 are the most socially isolated patients): 3 What type of physical activity do you participate in: walking Duration: 30-45 minutes/day Frequency: 5-6 times per week Shannan/Tenriism: No preference Special shannan needs: No Seatbelt use: always Helmet use: Yes Helmet use: always Drive intox or ride w/intox wagon driver: No Firearms in home: Yes Firearms unloaded and locked: Yes Do you feel safe at home: Yes Do you feel safe in your relationship?: Yes Would you like helpful sources: No
[2024-03-03 03:50] LABS: Lactate 1.3 mmol/L (0.6-1.4)
[2024-03-03 03:52] LABS: Abs Immature Grans 0.02 10^3/uL (0.0-0.06); Absolute Basophil Count 0.04 10^3/uL (0.0-0.2); Absolute Monocyte Count 0.35 10^3/uL (0.1-0.8); Absolute Neutrophil Count 5.82 10^3/uL (1.2-6.7); Basophils % 0.6 %; HCT 38.9 % (36.0-46.0); Immature Grans % 0.3 %; Lymphocytes % 7.4 %; MCH 30.1 pg (27.0-33.0); MCHC 33.4 % (32.0-36.0); MCV 90 fL (80-95); MPV 10.2 fL (8.0-11.0); Monocytes % 5.2 %; Neutrophils % 86.5 %; Platelet Count 146 10^3/uL (130-400); RBC 4.32 10^6/uL (3.93-5.22); RDW 13.1 % (11.7-14.6); RDW-SD 43.5 fL; WBC 6.73 10^3/uL (4.4-10.8)
[2024-03-03 03:54] LABS: ESR 43 mm/hr (0-30)
[2024-03-03 04:07] LABS: ALT 46 U/L (14-59); AST 45 U/L (15-37); Alkaline Phosphatase 86 U/L (46-116); Anion Gap 12.2 mmol/L (3-11); BUN 29 mg/dL (7-18); Bilirubin, Total 0.8 mg/dL (0.2-1.0); C-Reactive Protein 18.62 mg/dL (<or=0.5); CO2 23.8 mmol/L (21.0-32.0); CREATININE 1.5 mg/dL (0.55-1.02); Calcium 8.6 mg/dL (8.5-10.1); Chloride 100 mmol/L (98-107); Estimated GFR 35.45 (mL/min/1.73m2); Glucose 145 mg/dL (74-106); Lipase 17 U/L (16-77); Potassium 3.2 mmol/L (3.5-5.1); Sodium 136 mmol/L (136-145); Total Protein 6.9 g/dL (6.4-8.2)
[2024-03-03] MEDS: CEFEPIME 1 GM in Normal Saline 50 ML IVPB (04:25)
[2024-03-03] MEDS: Normal Saline 1,000 ML 125 ML IV ×3 (04:25→22:46)
[2024-03-03] MEDS: POTASSIUM CHLORIDE 20 MEQ/100 ML BAG 50 MEQ IVINF ×4 (04:40→14:16)
[2024-03-03] MEDS: VANCOMYCIN 1,300 MG in Normal Saline 500 ML 333.3333 MG IVPB (05:01)
--- NOTE | 2024-03-03 05:57 | HPE_ITS ---
Date of service: 03/03/24 Time of Service: 05:57 Assessment and Plan Assessment and plan (1) Positive blood cultures: Start date: 03/03/24 Status: Acute Assessment and plan: This is a 78-year-old lady who was seen the day prior to admission for shoulder pain and right upper quadrant abdominal pain with positive CT of the abdomen pelvis revealing cholelithiasis but no evidence of acute cholecystitis. Did not have fever but did have an elevated WBC which has improved to normal with follow-up labs this admission. She is chronically on warfarin for paroxysmal atrial fibrillation. Has had no bleeding sequela from this treatment. She does still have her gallbladder as above and did have some associated nausea and referred pain or primary pain in the right shoulder and mid back. She does have positive findings of tendinitis in the right shoulder and exam is consistent with this rather than acute septic joint with CT of the shoulder performed. Patient will be admitted with positive blood cultures growing gram-positive cocci resulting quickly after her last ED visit. It was discussed medicine was consulted and infectious disease gave recommendations for hospitalization for IV vancomycin and cefepime with most likely source being the GI system septic gallbladder. Ultrasound of the right upper quadrant will be done and if significant findings, consider surgical consultation. Patient did have an elevated bilirubin and slightly elevated liver function test but no elevated alkaline phosphatase. I think that her shoulder is a separate issue with acute on chronic tendinitis. If this pain progresses she should be reevaluated for effusion of the joint and this should be tapped. Patient is a full code. (2) Right upper quadrant abdominal pain: Start date: 03/03/24 Status: Acute Assessment and plan: With cholelithiasis but no evidence of acute cholecystitis by imaging. Clinically she may have acute cholecystitis. Ultrasound of the right upper quadrant and surgical consultation if appropriate. Continue IV cefepime and vancomycin with positive blood cultures for gram-positive cocci. (3) Cholelithiasis: Start date: 03/03/24 Status: Acute Assessment and plan: This is an acute finding though patient most likely has chronic cholelithiasis. No evidence of cholecystitis by imaging. Cover with intravenous antibiotics and ultrasound of the abdomen discussed. Qualifiers: Biliary obstruction: without biliary obstruction Cholecystitis acuity: acute Cholecystitis presence: with cholecystitis Cholelithiasis location: g allbladder Qualified Code(s): K80.00 - Calculus of gallbladder with acute cholecystitis without obstruction (4) Leukocytosis: Start date: 03/03/24 Status: Acute Assessment and plan: With acute infectious process and positive blood culture for gram-positive cocci. Trend labs. Patient is not septic. Qualifiers: Leukocytosis type: other Qualified Code(s): D72.828 - Other elevated white blood cell count (5) Hypokalemia: Start date: 03/03/24 Status: Acute Assessment and plan: Patient is currently on lisinopril with hydrochlorothiazide combination and is not on chronic potassium supplement. IV supplementation of potassium and follow-up with magnesium and labs should be trended. (6) Diabetes: Assessment and plan: Hold outpatient medical therapy and check glucometers before meals and at bedtime with started insulin coverage. 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 If patient is unable to eat normally consider gentle IV hydration. Qualifiers: Chronic kidney disease stage 3 subtype: stage 3b (GFR 30-44) Qualified Code(s): N18.32 - Chronic kidney disease, stage 3b (8) Paroxysmal atrial fibrillation: Assessment and plan: Continue warfarin at present dosing follow-up PT/INR and adjusting as needed especially with antibiotic therapy which may change effect of warfarin. Patient is subtherapeutic by her admission PT/INR and review of warfarin dosing should include PCP for further dosing while hospitalized. (9) Hyperlipidemia: Assessment and plan: Continue outpatient medical therapy. Qualifiers: Hyperlipidemia type: mixed hyperlipidemia Qualified Code(s): E78.2 - Mixed hyperlipidemia (10) Essential hypertension: Assessment and plan: Continue outpatient medical therapy adjusting as needed. History of Present Illness History of Present Illness Chief Complaint: Generalized weakness with right shoulder pain and nausea Narrative: This is a 78-year-old female patient who was seen earlier in the ED 03/02/2024 for and had blood cultures done after extensive workup for generalized weakness and right shoulder pain extending to right upper back and add an elevated total bilirubin as well as elevated WBC. She also had nausea. She did receive 2 g of IV cefepime and went home but was called back to the ED because positive blood cultures and aerobic and anaerobic cultures with gram-positive cocci. CT of the right shoulder was negative and patient did have possible GI source of the pathogen most likely gallbladder. Infectious disease consultation by the ED physician during the paediatric thoracic physician of admission. She does have gallstones but no evidence of ductal dilatation or cholecystitis though her symptoms could be from atypical gallbladder colic. She did feel better with initial IV antibiotics and was continued on IV vancomycin and cefepime. Also with right upper quadrant will be performed in the morning. Patient continues to have slight nausea and will be supported with IV fluids. She has been having dry heaves and will be treated symptomatically for nausea. See ED notes for details from Dr. Sears and Dr. Jeffery. Patient is a full code. Review of Systems Narrative: 13 point review of systems otherwise unrevealing or stable. [facility] All Active Problems (Updated 03/03/24 @ 06:29 by Jayant Flynn) Hypokalemia (Acute) CKD (chronic kidney disease) stage 3, GFR 30-59 ml/min (Chronic) Cholelithiasis (Acute) Positive blood cultures (Acute) Right upper quadrant abdominal pain (Acute) Gallbladder Problem (Acute) Scapular dyskinesis (Acute) Syncope (Chronic) Elevated bilirubin (Acute) Leukocytosis (Acute) Upper back pain on right side (Acute) Pain in right shoulder (Acute) Weakness (Acute) Abnormal findings on esophagogastroduodenoscopy (EGD) (Acute 09/16/18) EGD with Dr Olmedo, then followed by Dr Vallecillo, referred to [facility] [place] GI Chronic anticoagulation (Chronic) Back on Warfarin Jun 12, 2023 Tendinitis of right rotator cuff (Acute) Carpal tunnel syndrome of right wrist (Acute) Advanced care planning/counseling discussion (Acute) Rectal bleeding (Acute) Constipation (Acute) Medical History Renal insufficiency Paroxysmal atrial fibrillation Hyperlipidemia (04/07/13) Gout Family history of premature CAD (04/28/18) father with ME at age 45 and was a heavy smoker. 2 smoking siblings with CAD in 60's. 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 Family History Mother Cancer Brother Heart disease Brother Cancer Sister Heart disease Sister Alcohol abuse Other Family history of premature CAD Social History Smoking/Tobacco Use Status: Never Second Hand Exposure: Yes Smoking risk assessment performed?: Yes Alcohol Intake: never Drug use: Never Substance use type: does not use Adopted: No Household members: spouse Housing: house Education Level: middle school Details: 8 years current occupation: [employer] Pets and animals: No Sexually active: No Do you think of yourself as: straight/heterosexual Current gender identity: female What is your relationship status?: How often do you talk on the phone with friends or family?: three or more times per week How often do you get together with friends or relatives?: three or more times per week How often do you attend restoration or hindu services?: decline to answer Do you belong to any clubs or organized social groups?: yes Panel score (0-1 are the most socially isolated patients): 3 What type of physical activity do you participate in: walking Duration: 30-45 minutes/day Frequency: 5-6 times per week Shannan/Moravian: No preference Special shannan needs: No Seatbelt use: always Helmet use: Yes Helmet use: always Drive intox or ride w/intox lokie driver: No Firearms in home: Yes Firearms unloaded and locked: Yes Do you feel safe at home: Yes Do you feel safe in your relationship?: Yes Would you like helpful sources: No Meds Allergies and Home Medications Allergies Allergy/AdvReac Type Severity Reaction Status Date / Time Penicillins AdvReac Intermediate Rash Verified 03/03/24 05:33 bandaids AdvReac Mild breaks Uncoded 03/03/24 05:33 out Home Medications Medication Instructions Recorded Confirmed Type acetaminophen 500 mg tablet 500 mg PO Q6H PRN PRN pain #60 tabs 05/19/19 03/03/24 Rx hydrocortisone 2.5 % topical cream 1 applic [place] BID-QID PRN 03/01/23 03/03/24 Rx with perineal applicator hemorrhoids #30 grams (Anusol-HC) warfarin 2.5 mg tablet 2.5 mg PO DAILY #90 tabs 06/10/23 03/03/24 Rx lidocaine 4 % topical patch 1 patch topical DAILY PRN pain #30 07/08/23 03/02/24 Rx ea warfarin 1 mg tablet 2 mg PO DAILY #180 tabs 08/14/23 03/03/24 Rx atorvastatin 40 mg tablet 40 mg PO HS #90 tabs 12/11/23 03/03/24 Rx diclofenac sodium 1 % topical gel 4 g topical QID #100 grams 12/11/23 03/03/24 Rx (Arthritis Pain (diclofenac)) diltiazem HCl 120 mg 120 mg PO DAILY #90 caps 12/11/23 03/03/24 Rx capsule,extended release 24 hr (Cardizem CD) lisinopril 20 1 tab PO DAILY #90 tabs 12/11/23 03/03/24 Rx mg-hydrochlorothiazide 25 mg tablet metformin 500 mg tablet 500 mg PO BID #180 tabs 12/11/23 03/03/24 Rx omeprazole 40 mg capsule,delayed 40 mg PO DAILY #90 caps 12/11/23 03/03/24 Rx release cephalexin 500 mg tablet 500 mg PO QID #28 tabs 03/02/24 03/03/24 Rx Exam Narrative Exam Narrative: General: Patient appears appropriate for age, moderately obese, alert and oriented x 3 and in no acute distress. HEENT: Normocephalic, eyes with pupils equal and reactive light symmetrically, extraocular movement intact and sclera anicteric. Oropharynx with moist mucosa. Neck: Supple without JVD. Back: Kyphotic without CVA tenderness. Lungs: Aeration and clear to auscultation and percussion with no focalizing rales or rhonchi. Rectal exam deferred. Heart: Regular rate and rhythm no murmurs or gallops appreciated. Abdomen: Obese contour, soft with tenderness over right upper quadrant and positive Amaya sign. No palpable hepatosplenomegaly. Bowel sounds positive all quadrants. Genitalia/rectal: Exam deferred. Extremities: Without clubbing, cyanosis or pitting edema. Muscle atrophy of the right shoulder with tenderness to palpation over the shoulder anteriorly with slight crepitus. Has a fair range of motion. No effusion of the right shoulder. All of the joints appear to have chronic arthritic changes but no acute changes. Peripheral pulses intact. Skin: Normal color, warm and dry. Neuro: Cranial nerves II through XII gross intact, no focalizing motor deficits but patient does not voluntarily actively move right shoulder because of tenderness. No tremor. Psych: Normal affect and mood. No abnormal thought processes. Remote and recent memory appear to be grossly intact. Results Imaging Imaging Studies: EXAM: CT CHEST/ABD/PEL W CLINICAL HISTORY: right upper back pain, increase wbc, increase bili. TECHNIQUE: Imaging Protocol: Axial computed tomography images with coronal and sagittal reformatted images were created and reviewed CONTRAST MATERIAL: Intravenous: Omnipaque 350 Contrast volume:100 ml Oral: None COMPARISON: CR XR CHEST 2V PA LATERAL from 03/02/2024 CR XR SHOULDER RT COMPLETE 2+V from 03/02/2024 FINDINGS: CHEST: LUNGS: No infiltrates nor pleural effusions. Mild platelike atelectasis in the right middle lobe noted.. No ominous pulmonary nodules. MEDIASTINUM: There is no hilar nor mediastinal adenopathy. Visualized thyroid unremarkable. CARDIAC: Heart size is normal. There is no pericardial effusion.Caliber of the thoracic aorta is within normal limits. OSSEOUS: No significant osseous lesions.No fractures.. ABDOMEN: There is no ascites. LIVER: There are no focal hepatic lesions nor dilatation of intrahepatic ducts. GALLBLADDER/BILIARY: There are multiple tiny layering gallstones in the gallbladder lumen. Gallbladder is not overly distended nor edematous and there is no pericholecystic fluid. There are no obvious radiopaque calculi seen in the nondilated CBD. PANCREAS: There is mild streaking around the pancreatic tail noted, possibly related to pancreatitis. SPLEEN: Spleen is not enlarged. There are no intrasplenic lesions. Splenic and portal veins are patent. ADRENALS: There are no significant adrenal masses. KIDNEYS: No calculi nor hydronephrosis. No solid renal masses. No cysts evident. ABDOMINAL AORTA: Abdominal aorta is heavily calcified but not enlarged. Common iliac arteries are calcified but not enlarged. LYMPH NODES: There is no retroperitoneal nor paraaortic adenopathy. ABDOMINAL WALL: No evidence of significant anterior abdominal wall nor inguinal hernia. GI: There is no evidence of bowel obstruction.No free air. No abscess. PELVIS: LYMPH NODES: There is no intrapelvic nor inguinal adenopathy. GI: Appendix is not identified as a separate structure but there is no evidence of obvious appendicitis.No evidence of sigmoid diverticulitis. URINARY BLADDER: No calculi nor masses evident REPRODUCTIVE: Uterus is surgically absent. There are no abnormal adnexal masses. No free fluid in the pelvis. OSSEOUS: No significant osseous lesions. No fractures. Density around the sacroiliac joints possibly indicating sacroiliitis. There is no ankylosis of the SI joints. IMPRESSION: 1. No significant intrathoracic findings. 2. Cholelithiasis. There are multiple tiny gallstones noted in the gallbladder lumen. The gallbladder does not appear edematous nor distended and there is no pericholecystic fluid. No dilatation of the CBD. No obvious calculi seen within the CBD. 3. There is mild streaking around the pancreatic tail. Cannot exclude subtle pancreatitis. This streaking may be exaggerated by motion artifact here. 4. Previous hysterectomy. No pelvic masses nor free fluid. EXAM: CT UPPER EXTREMITY RT WO CLINICAL HISTORY: elevated wbc, ?osteomyelitis TECHNIQUE: Imaging Protocol: Axial computed tomography images with coronal and sagittal reformatted images were created and reviewed. CONTRAST MATERIAL: Intravenous: Omnipaque 350 Contrast volume:structured data in ml Contrast route:IV - Oral: yes / no COMPARISON: CT CT CHEST/ABD/PEL W from 03/02/2024 FINDINGS: There are no fractures nor dislocation. Degenerative subarticular cysts are noted in the superior aspect of the osseous glenoid as well as in the lateral aspect of the humeral head-greater tuberosity region. In addition, there is a 6 x 2 millimeter calcification in the soft tissues immediately adjacent to the greater tuberosity of the humeral head which is most probably calcific rotator cuff tendinitis. This corresponds what is seen on plain films. Otherwise, there are moderate degenerative changes in the AC joint. IMPRESSION: There is a 6 x 2 millimeter calcific density adjacent to the lateral aspect of the humeral head-greater tuberosity as described above. Consistent with calcific rotator cuff tendinitis. Labs 03/03/24 03:45 03/03/24 03:45 Labs: Laboratory Results - last 24 hr 03/03/24 03:45 WBC 6.73 RBC 4.32 Hgb 13.0 Hct 38.9 MCV 90 MCH 30.1 MCHC 33.4 RDW 13.1 Plt Count 146 MPV 10.2 Immature Gran % 0.3 Neutrophils % 86.5 Lymphocytes % 7.4 Monocytes % 5.2 Eosinophils % 0.0 Basophils % 0.6 Nucleated RBC % 0.0 Absolute Neutrophils 5.82 Absolute Lymphocytes 0.50 L Absolute Monocytes 0.35 Absolute Eosinophils 0.00 Absolute Basophils 0.04 ESR 43 H VBG Lactate 1.3 Sodium 136 Potassium 3.2 L Chloride 100 Carbon Dioxide 23.8 Anion Gap 12.2 H BUN 29 H Creatinine 1.5 H Est GFR (CKD-EPI 2020) 35.45 Glucose 145 H Calcium 8.6 Total Bilirubin 0.8 AST 45 H ALT 46 Alkaline Phosphatase 86 C-Reactive Protein 18.62 H Total Protein 6.9 Albumin 3.0 L Lipase 17 Last Vital Signs Temp 36.8 C 03/03/24 03:21 Pulse 74 03/03/24 03:21 Resp 16 03/03/24 03:21 BP 173/85 H 03/03/24 03:21 Pulse Ox 99 03/03/24 03:21 Time Spent Time spent with Patient: >75 minutes Time was spent: preparing to see the patient(eg.review tests), obtaining and/or reviewing separately otained hiistory, ordering medications,tests, procedures, referring, communicating with other health wound care physician, indepentently interpreting results, counseling the patient and care coordination
--- NOTE | 2024-03-03 06:45 | DI.US_ITS ---
Exam(s) US ABDOMEN LIMITED EXAM: US ABDOMEN LIMITED CLINICAL HISTORY: Quadrant abdominal pain with + BC TECHNIQUE: Ultrasound abdomen performed using standard protocol. COMPARISON: CT CT CHEST/ABD/PEL W from 03/02/2024 FINDINGS: LIVER: Normal size. Mildly increasedechogenicity, consistent with mild hepatic steatosis.. No focal liver lesions are seen.. GALLBLADDER: Layering sludge in the gallbladder. No evidence of wall thickening. No pericholecystic fluid identified. CHOI'S SIGN: Negative. BILIARY SYSTEM: No intrahepatic or extrahepatic biliary ductal dilation. RIGHT KIDNEY: Normal size. No evidence of renal calculi. No evidence of hydronephrosis. No suspicious renal mass. No cyst identified. PANCREAS: Normal where visualized. ABDOMINAL AORTA AND IVC: Visualized portions normal caliber. ASCITES: None seen. IMPRESSION: Layering sludge in the gallbladder. No evidence of acute cholecystitis. DATA REPOSITORY:
--- NOTE | 2024-03-03 07:34 | W.PCEDHO ---
Registration Status: REG ER Primary Language: Preferred Language: Irish ED Information & Data Chief Complaint Recheck 03/03/24 03:24 Chief Complaint Recheck 03/03/24 03:21 Triage Note Pt was told by Della Karimi MD 03/03/24 03:21 to come to ED d/t pos blood cultures. Pt was seen in the ED on 03/01 for weakness. Medical / Surgical History (Last Reviewed 03/03/24 @ 06:01 by Jayant Flynn) Adenocarcinoma of endometrium Diabetes Essential hypertension (07/06/13) Family history of premature CAD (04/28/18) Gout Hyperlipidemia (04/07/13) Paroxysmal atrial fibrillation Renal insufficiency (Last Reviewed 03/03/24 @ 06:01 by Jayant Flynn) Endometrial Biopsy History of eye surgery History of hand surgery History of hysterectomy with bilateral oophorectomy History of shoulder surgery Most Recent Vital Signs Temperature 36.8 C 03/03/24 03:21 Temperature Source Temporal Artery Scan 03/03/24 03:21 Pulse 74 03/03/24 03:21 Respiratory Rate 16 03/03/24 03:21 Respiratory Effort Normal 03/03/24 03:24 Blood Pressure 173/85 H 03/03/24 03:21 Pulse Oximetry 99 03/03/24 03:21 Oxygen Delivery Method Room Air 03/03/24 03:21 Oxygen Flow Rate 0 03/03/24 03:21 Pain Level 8 03/03/24 03:21 Allergies Penicillins Adverse Reaction (Intermediate, Verified 03/03/24 05:33) Rash bandaids Adverse Reaction (Mild, Uncoded 03/03/24 05:33) breaks out rash Active Medications Generic Name Dose Route Start Last Admin Trade Name Trista PRN Reason Stop Dose Admin Sodium Chloride 1,000 mls @ 125 mls/hr 03/03/24 03:45 03/03/24 04:25 Saline 1000ml Bag IV 125 mls/hr INFUSION LEISA Administration IV IV Catheter Type [Left Peripheral IV Antecubital] IV Catheter Type [Right Peripheral IV Antecubital] IV Catheter Gauge [Left 18 Antecubital] IV Catheter Gauge [Right 18 Antecubital] Diet Orders Category Date Time Status Diabetes Consistent CHO/Heart Healthy [DIET] Nutrition 03/03/24 Breakfast Active Diagnostics 03/03/24 03/03/24 03/03/24 Range/Units 07:33 06:24 06:17 WBC (4.4-10.8) 10^3/uL RBC (3.93-5.22) 10^6/uL Hgb (11.2-15.7) g/dL Hct (36.0-46.0) % MCV (80-95) fL MCH (27.0-33.0) pg MCHC (32.0-36.0) % RDW (11.7-14.6) % Plt Count (130-400) 10^3/uL MPV (8.0-11.0) fL Immature Gran % % Neutrophils % % Lymphocytes % % Monocytes % % Eosinophils % % Basophils % % Nucleated RBC % (0.0-0.3) % Absolute Neutrophils (1.2-6.7) 10^3/uL Absolute Lymphocytes (1.2-3.4) 10^3/uL Absolute Monocytes (0.1-0.8) 10^3/uL Absolute Eosinophils (0.0-0.7) 10^3/uL Absolute Basophils (0.0-0.2) 10^3/uL ESR (0-30) mm/hr PT Pending Cancelled INR Pending Cancelled VBG Lactate (0.6-1.4) mmol/L Sodium (136-145) mmol/L Potassium (3.5-5.1) mmol/L Chloride (98-107) mmol/L Carbon Dioxide (21.0-32.0) mmol/L Anion Gap (3-11) mmol/L BUN (7-18) mg/dL Creatinine (0.55-1.02) mg/dL Est GFR (CKD-EPI 2020) (mL/min/1.73m2) Glucose (74-106) mg/dL Calcium (8.5-10.1) mg/dL Total Bilirubin (0.2-1.0) mg/dL AST (15-37) U/L ALT (14-59) U/L Alkaline Phosphatase (46-116) U/L C-Reactive Protein (<or=0.5) mg/dL Total Protein (6.4-8.2) g/dL Albumin (3.4-5.0) g/dL Lipase (16-77) U/L Urine Color Pending Urine Clarity Pending Urine pH Pending Ur Specific Cochran Pending Urine Protein Pending Urine Ketones Pending Urine Blood Pending Urine Nitrite Pending Urine Bilirubin Pending Urine Urobilinogen Pending Ur Leukocyte Esterase Pending Urine Glucose Pending 03/03/24 Range/Units 03:45 WBC 6.73 (4.4-10.8) 10^3/uL RBC 4.32 (3.93-5.22) 10^6/uL Hgb 13.0 (11.2-15.7) g/dL Hct 38.9 (36.0-46.0) % MCV 90 (80-95) fL MCH 30.1 (27.0-33.0) pg MCHC 33.4 (32.0-36.0) % RDW 13.1 (11.7-14.6) % Plt Count 146 (130-400) 10^3/uL MPV 10.2 (8.0-11.0) fL Immature Gran % 0.3 % Neutrophils % 86.5 % Lymphocytes % 7.4 % Monocytes % 5.2 % Eosinophils % 0.0 % Basophils % 0.6 % Nucleated RBC % 0.0 (0.0-0.3) % Absolute Neutrophils 5.82 (1.2-6.7) 10^3/uL Absolute Lymphocytes 0.50 L (1.2-3.4) 10^3/uL Absolute Monocytes 0.35 (0.1-0.8) 10^3/uL Absolute Eosinophils 0.00 (0.0-0.7) 10^3/uL Absolute Basophils 0.04 (0.0-0.2) 10^3/uL ESR 43 H (0-30) mm/hr PT INR VBG Lactate 1.3 (0.6-1.4) mmol/L Sodium 136 (136-145) mmol/L Potassium 3.2 L (3.5-5.1) mmol/L Chloride 100 (98-107) mmol/L Carbon Dioxide 23.8 (21.0-32.0) mmol/L Anion Gap 12.2 H (3-11) mmol/L BUN 29 H (7-18) mg/dL Creatinine 1.5 H (0.55-1.02) mg/dL Est GFR (CKD-EPI 2020) 35.45 (mL/min/1.73m2) Glucose 145 H (74-106) mg/dL Calcium 8.6 (8.5-10.1) mg/dL Total Bilirubin 0.8 (0.2-1.0) mg/dL AST 45 H (15-37) U/L ALT 46 (14-59) U/L Alkaline Phosphatase 86 (46-116) U/L C-Reactive Protein 18.62 H (<or=0.5) mg/dL Total Protein 6.9 (6.4-8.2) g/dL Albumin 3.0 L (3.4-5.0) g/dL Lipase 17 (16-77) U/L Urine Color Urine Clarity Urine pH Ur Specific Cochran Urine Protein Urine Ketones Urine Blood Urine Nitrite Urine Bilirubin Urine Urobilinogen Ur Leukocyte Esterase Urine Glucose 03/03/24 04:17 Blood Culture - Pending Blood 03/03/24 03:45 Blood Culture - Pending Blood Intake and Output - 24 Hour Total 03/03/24 03:17 thru 03/03/24 07:31 Intake Total 650 Balance 650 Weight 65.771 kg Intake: IV 650 Falls Risk Assessment History of Falls No History 03/03/24 03:25 Contributing Factors No Factors 03/03/24 03:25 Ambulatory Aids Independent 03/03/24 03:25 Tubes/Lines None 03/03/24 03:25 Gait Evaluation No gait disturbance 03/03/24 03:25 Cognition No cognitive impairment 03/03/24 03:25 Fall Total Score 0 03/03/24 03:25 Level of Risk Standard/Low Risk 03/03/24 03:25 Problems (Last Reviewed 03/03/24 @ 06:01 by Jayant Flynn) Hypokalemia (Acute) CKD (chronic kidney disease) stage 3, GFR 30-59 ml/min (Chronic) Cholelithiasis (Acute) Positive blood cultures (Acute) Right upper quadrant abdominal pain (Acute) Leukocytosis (Acute) v v v v v v v v v Sending and/or Receiving Nurses: Please use comment section below to note any information pertinent to the patient hand-off not included above. Information / Comments: Report received from: Mary Kay Wolf ED RN at 0700 hrs on 03/03/24
[2024-03-03 08:50] LABS: Bilirubin Negative (Negative); Blood Trace-intact (Negative); Clarity Sl Cloudy (Clear); Glucose Negative (Negative); Ketones Negative (Negative); Leukocyte Esterase Trace (Negative); Nitrite Negative (Negative); Urobilinogen 0.2 mg/dL (Up to 0.2); pH 5.5 (5-8)
[2024-03-03 09:20] LABS: Epithelial Cells Few HPF (Negative); RBC 0-2 HPF (0-2)
[2024-03-03 09:21] LABS: Bacteria Rare HPF (Negative); C & S Indicated? Yes; Casts 0-2 Fine Granular LPF (Negative); Crystals Negative HPF (Negative); Mucus Negative (Negative); Other Cells Few Renal (Negative)
[2024-03-03] MEDS: Warfarin 1 MG TAB 2 MG PO (09:23)
[2024-03-03] MEDS: hydroCHLOROthiazide 25 MG TAB PO (09:24)
[2024-03-03] MEDS: dilTIAZem CD 120 MG CAPCR PO (09:25)
[2024-03-03] MEDS: Lisinopril 20 MG TAB PO (09:25)
[2024-03-03] MEDS: Normal Saline Flush 10 ML SYR IVP (09:26)
[2024-03-03 09:28] LABS: INR 1.6 (0.9-1.1); Prothrombin Time 15.9 sec (9.1-11.1)
[2024-03-03] MEDS: Acetaminophen 325 MG TAB PO (13:17)
--- NOTE | 2024-03-03 14:29 | PHA.REVIEW2 ---
Pharmacy Admission Review Admission Clinical Review Admission Pharmacy Review: (Updated 03/03/24 @ 06:29 by Jayant Flynn) Hypokalemia (Acute) Cholelithiasis (Acute) Positive blood cultures (Acute) Right upper quadrant abdominal pain (Acute) Leukocytosis (Acute) Penicillins Adverse Reaction (Intermediate, Verified 03/03/24 05:33) Rash bandaids Adverse Reaction (Mild, Uncoded 03/03/24 05:33) breaks out Resuscitation Status Full Code Height 5 ft Weight 63.503 kg Pharmacy Admission Review Renal Dosing Renal Dosing: BUN 29 mg/dL (7-18) H 03/03/24 03:45 Creatinine 1.5 mg/dL (0.55-1.02) H 03/03/24 03:45 Medications needing adjustments: Intervened (CrCl 25.72 mL/min) List of meds needing interventions: Changed cefepime dosing from 2g q12h to 1g q24h due to CrCl < 30 Anticoagulation Anticoagulation: Hgb 13.0 g/dL (11.2-15.7) 03/03/24 03:45 Hct 38.9 % (36.0-46.0) 03/03/24 03:45 Plt Count 146 10^3/uL (130-400) 03/03/24 03:45 INR 1.6 (0.9-1.1) H 03/03/24 08:11 Creatinine 1.5 mg/dL (0.55-1.02) H 03/03/24 03:45 DVT Prophylaxis: Intervened (Warfarin listed twice on patients home med list as 2mg daily and 2.5mg daily. Orders were put in for both strengths Based on fill history patient has not been taking the 2.5mg since 06/07. Reached out to provider and canceled order for 2.5mg daily) Medications: Warfarin (2mg daily) Relevant Labs Relevant Labs: ESR 43 mm/hr (0-30) H 03/03/24 03:45 Sodium 136 mmol/L (136-145) 03/03/24 03:45 Potassium 3.2 mmol/L (3.5-5.1) L 03/03/24 03:45 Chloride 100 mmol/L (98-107) 03/03/24 03:45 Magnesium 2.0 mg/dL (1.8-2.4) 03/03/24 03:45 C-Reactive Protein 18.62 mg/dL (<or=0.5) H 03/03/24 03:45 Electrolytes, C-Reactive P, ESR: Reviewed (K 3.2, INR 1.6 (subtherapeutic), glucose 145) DM Control DM Control: Glucose 145 mg/dL (74-106) H 03/03/24 03:45 Finger Stick Blood Glucose 119 1222 Finger Stick Blood Glucose 119 1205 Finger Stick Blood Glucose 119 1205 Finger Stick Blood Glucose 130 0940 Finger Stick Blood Glucose 130 0918 Finger Stick Blood Glucose 130 0918 DM Control: Reviewed Insulin Dosing, Diabetic Medication: Has order for SS insulin Cardiac Review Cardiac Review: Blood Pressure [Left Arm] 188/71 Blood Pressure 156/78 1155 Blood Pressure 187/98 0850 Blood Pressure 187/98 0841 Blood Pressure 192/67 0801 Blood Pressure 188/71 0748 Blood Pressure 174/90 0742 Blood Pressure 158/66 0630 Blood Pressure 178/62 0601 Blood Pressure 177/61 0531 Blood Pressure 168/63 0516 Blood Pressure 173/85 0513 Blood Pressure 173/85 0323 BP, HR, EF%: Reviewed (BP 156/78 and HR WNL) QTc Review QTc: Reviewed (440 from 03/02/24 - most recent EKG on file) IV to PO Switch IV Medications: Reviewed (vancomycin, ondansetron and cefepime) Home Meds Home Med List reviewed: Reviewed Relevent Home Meds Not ordered & why?: Lidocaine patch (PRN), metformin (on hold - has order for SS insulin), omeprazole Current Meds Current Medication Order Review: Reviewed Pharmacy Antibiotic Review Relevant Labs: Relevant Labs 03/03/24 03:45 C-Reactive Protein 18.62 H WBC 6.73 10^3/uL (4.4-10.8) 03/03/24 03:45 Temperature 36.8 C Temperature 36.8 C Temperature 36.8 C Temperature 36.8 C Pharmacy Antibiotic Activity: C/S review and Renal function adjustment Comments: Patient is on cefepime and vancomycin for septic cholecystitis, day 1. Blood culture growing gram positive cocci, repeat blood pending and urine culture pending. Changed cefepime dose from 2g q12h to 1g q24h due to CrCl < 30. Vancomycin currently ordered for 750mg q24h, level pending for today at 1400. Will adjust as needed.
[2024-03-03 15:09] LABS: Vancomycin, Random 17.9 ug/mL
[2024-03-03] MEDS: VANCOMYCIN/WATER (PEG) 750 MG/150 ML BAG 150 MG IVPB (16:15)
[2024-03-03] MEDS: Diclofenac 1% Gel 100 GM TUBE TP ×2 (16:17→20:46)
[2024-03-03] MEDS: Atorvastatin 40 MG TAB PO (19:54)
[2024-03-04 04:09] VITALS: BP 170/70; PULSE 65; RESP 16; TEMP 36.4; O2SAT 98
[2024-03-04] MEDS: CEFEPIME 1 GM in Normal Saline 50 ML IVPB ×2 (06:07→18:12)
[2024-03-04] MEDS: Normal Saline 1,000 ML 125 ML IV ×2 (06:08→16:59)
[2024-03-04 06:24] LABS: HCT 33.5 % (36.0-46.0); HGB 10.9 g/dL (11.2-15.7); MCH 29.8 pg (27.0-33.0); MCHC 32.5 % (32.0-36.0); MCV 92 fL (80-95); MPV 10.7 fL (8.0-11.0); Platelet Count 134 10^3/uL (130-400); RBC 3.66 10^6/uL (3.93-5.22); RDW 13.1 % (11.7-14.6); RDW-SD 43.9 fL; WBC 5.42 10^3/uL (4.4-10.8)
[2024-03-04 06:31] LABS: INR 2.2 (0.9-1.1); Prothrombin Time 20.4 sec (9.1-11.1)
[2024-03-04 06:56] LABS: ALT 36 U/L (14-59); AST 36 U/L (15-37); Albumin 2.4 g/dL (3.4-5.0); Alkaline Phosphatase 77 U/L (46-116); BUN 19 mg/dL (7-18); Bilirubin, Total 0.59 mg/dL (0.2-1.0); CREATININE 0.9 mg/dL (0.55-1.02); Calcium 8.3 mg/dL (8.5-10.1); Chloride 108 mmol/L (98-107); Estimated GFR 65.44 (mL/min/1.73m2); Glucose 114 mg/dL (74-106); Magnesium 1.9 mg/dL (1.8-2.4); Potassium 3.8 mmol/L (3.5-5.1); Sodium 140 mmol/L (136-145); Total Protein 5.8 g/dL (6.4-8.2)
[2024-03-04 07:58] VITALS: BP 172/75; PULSE 60; RESP 17; TEMP 36.8; O2SAT 98
[2024-03-04] MEDS: dilTIAZem CD 120 MG CAPCR PO (08:54)
[2024-03-04] MEDS: Warfarin 1 MG TAB 2 MG PO (08:54)
[2024-03-04] MEDS: Acetaminophen 325 MG TAB PO ×3 (08:54→20:28)
[2024-03-04] MEDS: hydroCHLOROthiazide 25 MG TAB PO (08:55)
[2024-03-04] MEDS: Normal Saline Flush 10 ML SYR IVP ×2 (08:55→22:48)
[2024-03-04] MEDS: Lisinopril 20 MG TAB PO (08:55)
--- NOTE | 2024-03-04 10:16 | PGE_ITS ---
Date of Service Date of service: 03/04/24 Time of Service: 10:17 Assessment and Plan Assessment and plan (1) Streptococcal bacteremia: Status: Acute Assessment and plan: - Patient initially presented to the ED 03/02/2024 with concerns for abdominal pain -Was left without a UTI was sent home with Keflex -However, she was called back to the ED due to blood cultures showing gram- positive cocci -Prelim results show that this is Streptococcus species -However, blood cultures drawn upon return to ED remain negative -Will follow-up initial and repeat blood culture results -Will continue patient on current regimen of Vanco and cefepime until final cultures result (2) Right upper quadrant abdominal pain: Start date: 03/03/24 Status: Acute Assessment and plan: -With cholelithiasis but no evidence of acute cholecystitis by imaging -RUQ US showed biliary sludge -pain has since resolved (3) Leukocytosis: Start date: 03/03/24 Status: Acute Assessment and plan: -patient had WBC of 18 upon initial presentation to the ED early AM 03/02 -leukocytosis has resolved upon second presentation to the ED/admission and has remained WNL since that time Qualifiers: Leukocytosis type: other Qualified Code(s): D72.828 - Other elevated white blood cell count (4) Diabetes: Assessment and plan: -Hold outpatient medical therapy and check glucometers before meals and at bedtime with started insulin coverage. Qualifiers: Diabetes mellitus type: type 2 Diabetes mellitus assisted insulin use: without assisted use Diabetes mellitus complication status: with kidney complications Diabetes mellitus complication detail: with chronic kidney disease Chronic kidney disease stage: stage 3 (moderate) Chronic kidney disease stage 3 subtype: stage 3b (GFR 30-44) Qualified Code(s): E11.22 - Type 2 diabetes mellitus with diabetic chronic kidney disease; N18.32 - Chronic kidney disease, stage 3b (5) CKD (chronic kidney disease) stage 3, GFR 30-59 ml/min: Status: Chronic Assessment and plan: -baseline Qualifiers: Chronic kidney disease stage 3 subtype: stage 3b (GFR 30-44) Qualified Code(s): N18.32 - Chronic kidney disease, stage 3b (6) Paroxysmal atrial fibrillation: Assessment and plan: -Continue warfarin at present dosing follow-up PT/INR (7) Hyperlipidemia: Assessment and plan: -Continue outpatient medical therapy. Qualifiers: Hyperlipidemia type: mixed hyperlipidemia Qualified Code(s): E78.2 - Mixed hyperlipidemia (8) Essential hypertension: Assessment and plan: -Continue outpatient medical therapy adjusting as needed. Subjective Subjective Interval history since last seen: Patient states that she is doing well today. She understands that we are awaiting final culture results in order to determine potential antibiotic course. Exam Narrative Exam Narrative: Well-appearing older female sitting up on the edge of the bed in no acute distress, ANO x 4, heart regular rhythm, lungs clear to auscultation bi laterally, abdomen soft, nontender, nondistended Objective Last Vital Signs Temp 98.2 F 03/04/24 07:58 Pulse 60 03/04/24 07:58 Resp 17 03/04/24 07:58 BP 172/75 H 03/04/24 07:58 Pulse Ox 98 03/04/24 07:58 Laboratory Results - last 24 hr 03/03/24 03/03/24 03/04/24 03:45 14:17 06:02 WBC 5.42 RBC 3.66 L Hgb 10.9 L D Hct 33.5 L MCV 92 MCH 29.8 MCHC 32.5 RDW 13.1 Plt Count 134 MPV 10.7 PT 20.4 H INR 2.2 H Sodium 140 Potassium 3.8 Chloride 108 H Carbon Dioxide 22.0 Anion Gap 10.0 BUN 19 H Creatinine 0.9 Est GFR (CKD-EPI 2020) 65.44 Glucose 114 H Calcium 8.3 L Magnesium 2.0 1.9 Total Bilirubin 0.59 AST 36 ALT 36 Alkaline Phosphatase 77 Total Protein 5.8 L Albumin 2.4 L Random Vancomycin 17.9 Time Spent with Patient Time Spent with Patient: >50 minutes Time was spent: preparing to see the patient(eg.review tests), obtaining and/or reviewing separately otained hiistory, ordering medications,tests, procedures, referring, communicating with other health healthcare or medical, indepentently interpreting results, counseling the patient and care coordination
[2024-03-04 11:07] VITALS: BP 169/77; PULSE 64; RESP 16; TEMP 36.3; O2SAT 98
--- NOTE | 2024-03-04 13:11 | PDOC.CMIN ---
Date of service: 03/04/24 Time of Service: 13:12 Care Management Initial Assmt Initial Assessment Reason for Hospitalization: Gram positive cocci in blood culture Functional Status/Living Situation Patient Presentation: Eileen was sitting up on the edge of her bed when CM met with her. Her , Sebas, her daughter and son in law were in the room visiting. Eileen was pleasant and engaged well in conversation. She stated that she has six children, all who live nearby, 12 grandchildren and 14 grandchildren. She reported that she has a very supportive family, which was evident throughout the conversation. She stated that per MD, we are awaiting final culture results in order to determine her antibiotic course. 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 She stated that she will likely require a return to work letter upon discharge. CM will continue to follow. Town of Residence: [place] Resides with: Spouse (Osmar) Significant Other/Family: Local Natural Supports: Eileen has six children, 12 grandchildren and 14 great grandchildren. All very supportive. 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 Medications Medication Management: No Issues/Barriers identified Advance Directives Advance Directives: Do you have an Advance Directive: N 03/01/23 21:26 AD On File at [facility]: N 03/01/23 21:26 Date Asked 03/03/24 03/03/24 08:32 AD Date Reviewed COLST On File at [facility] COLST Date Scanned Code Status Resuscitation Status Full Code Insurance Coverage/Financial Issues Insurance: wellcare ACO Member: No Care Team Visit Care Team Role Provider Type Joaquin Muñoz NP Primary Care Provider NURSE PRACTITIONER Matt Jeffery MD Emergency Provider [facility] STAFF PHYSICIAN Jayant Flynn Admit Provider NON-[facility] STAFF PHYSICIAN Attending Provider Discharge Potential Discharge Needs: PCP F/U Appt Anticipated Barriers to Discharge: Medical Status Patient/Family Education Needs: Review discharge instructions, discuss Ask Me Three Transportation: Private vehicle Plan: Anticipate Eileen will return home once medically cleared. Waiting on final blood cultures to determine antibiotic course, which may impact her discharge plan, if she requires senior care IV antibiotics. She will be driven home via private vehicle by family, and will follow up with her PCP and discharge plan of care. CM will continue to follow. PFSH All Active Problems (Updated 03/04/24 @ 10:23 by Chemo Roper MD) Streptococcal bacteremia (Acute) Hypokalemia (Acute) CKD (chronic kidney disease) stage 3, GFR 30-59 ml/min (Chronic) Cholelithiasis (Acute) Positive blood cultures (Acute) Right upper quadrant abdominal pain (Acute) Gallbladder Problem (Acute) Scapular dyskinesis (Acute) Syncope (Chronic) Elevated bilirubin (Acute) Leukocytosis (Acute) Upper back pain on right side (Acute) Pain in right shoulder (Acute) Weakness (Acute) Abnormal findings on esophagogastroduodenoscopy (EGD) (Acute 09/16/18) EGD with Dr Olmedo, then followed by Dr Vallecillo, referred to [facility] GI Chronic anticoagulation (Chronic) Back on Warfarin Jun 12, 2023 Tendinitis of right rotator cuff (Acute) Carpal tunnel syndrome of right wrist (Acute) Advanced care planning/counseling discussion (Acute) Rectal bleeding (Acute) Constipation (Acute) Medical History Renal insufficiency Paroxysmal atrial fibrillation Hyperlipidemia (04/07/13) Gout Family history of premature CAD (04/28/18) father with [place] at age 45 and was a heavy smoker. 2 smoking siblings with CAD in 60's. Essential hypertension (07/06/13) Diabetes Adenocarcinoma of endometrium Stage 1A-grade 1: tx with surgery only (Hyst.bilat.ogurmeet.) 08/2011 - [facility] Surgical History History of eye surgery Injury to her right eye Required two surgeries History of hand surgery Left hand - for pain Unknown further details History of shoulder surgery Left - unknown details History of hysterectomy with bilateral oophorectomy Endometrial Biopsy [facility]-ADENOCARCINOMA, EDONMETRIAL TYPE, FIGO GARDE 1, WITH MUCINOUS FEATURES. 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 - [employer] Pets and animals: No Sexually active: No Do you think of yourself as: straight/heterosexual Current gender identity: female What is your relationship status?: How often do you talk on the phone with friends or family?: three or more times per week How often do you get together with friends or relatives?: three or more times per week How often do you attend druze or mandaen services?: decline to answer Do you belong to any clubs or organized social groups?: yes Panel score (0-1 are the most socially isolated patients): 3 What type of physical activity do you participate in: walking Duration: 30-45 minutes/day Frequency: 5-6 times per week Shannan/Zoroastrian: No preference Special shannan needs: No Seatbelt use: always Helmet use: Yes Helmet use: always Drive intox or ride w/intox hog driver: No Firearms in home: Yes Firearms unloaded and locked: Yes Do you feel safe at home: Yes Do you feel safe in your relationship?: Yes Would you like helpful sources: No SDOH(Care Management) Screening Will the Patient Participate in the Screening?: Declined to provide Do you worry about having a steady place to live?: no In the past 12 months, have you had to go without electric, gas, oil or water in your home?: no Have you or anyone in your house had to go without enough food to eat?: no Has lack of transportation kept you from medical appointments or from doing things needed for daily living?: no Has anyone in your support network made you feel unsafe for any reason?: no
[2024-03-04 13:31] LABS: Vancomycin, Random 10.2 ug/mL
[2024-03-04] MEDS: VANCOMYCIN/WATER (PEG) 750 MG/150 ML BAG 150 MG IVPB (14:41)
[2024-03-04 15:43] VITALS: BP 153/73; PULSE 57; RESP 17; TEMP 36.8; O2SAT 100
[2024-03-04 20:15] VITALS: BP 173/72; PULSE 61; RESP 18; TEMP 37.1; O2SAT 99
[2024-03-04] MEDS: Atorvastatin 40 MG TAB PO (20:30)
[2024-03-04] MEDS: Diclofenac 1% Gel 100 GM TUBE TP (22:49)
[2024-03-04 23:00] VITALS: BP 174/86; PULSE 60; RESP 16; TEMP 36.7; O2SAT 99
[2024-03-05] MEDS: VANCOMYCIN/WATER (PEG) 750 MG/150 ML BAG 150 MG IVPB (01:51)
[2024-03-05 03:42] VITALS: BP 162/78; PULSE 61; RESP 18; TEMP 36.8; O2SAT 96
[2024-03-05] MEDS: Acetaminophen 325 MG TAB PO ×2 (03:46→12:51)
[2024-03-05] MEDS: CEFEPIME 1 GM in Normal Saline 50 ML IVPB (05:34)
[2024-03-05] MEDS: Normal Saline 1,000 ML 125 ML IV (05:34)
[2024-03-05 06:37] LABS: HCT 33.9 % (36.0-46.0); HGB 11.3 g/dL (11.2-15.7); MCH 30.4 pg (27.0-33.0); MCHC 33.3 % (32.0-36.0); MCV 91 fL (80-95); RBC 3.72 10^6/uL (3.93-5.22); RDW 15.5 % (11.7-14.6); RDW-SD 50.6 fL; WBC 8.14 10^3/uL (4.4-10.8)
[2024-03-05 06:52] LABS: Anion Gap 7.7 mmol/L (3-11); BUN 16 mg/dL (7-18); CO2 26.3 mmol/L (21.0-32.0); CREATININE 0.5 mg/dL (0.55-1.02); Calcium 8.4 mg/dL (8.5-10.1); Chloride 100 mmol/L (98-107); Estimated GFR 95.94 (mL/min/1.73m2); Glucose 74 mg/dL (74-106); Potassium 4.6 mmol/L (3.5-5.1); Sodium 134 mmol/L (136-145)
--- NOTE | 2024-03-05 07:53 | NUR.NOTE ---
Nursing Note: PT chart accessed after blood culture results to verify if PT was given antibiotics. HETAL Lopez \
[2024-03-05 08:01] VITALS: BP 214/80; PULSE 59; RESP 17; TEMP 36.3; O2SAT 98
[2024-03-05] MEDS: hydroCHLOROthiazide 25 MG TAB PO (08:12)
[2024-03-05] MEDS: Lisinopril 20 MG TAB PO (08:12)
[2024-03-05] MEDS: dilTIAZem CD 120 MG CAPCR PO (08:12)
[2024-03-05 09:25] VITALS: BP 162/92
--- NOTE | 2024-03-05 09:47 | W.PM.DS.N ---
Date of service: 03/05/24 Time of Service: 09:48 DS: Diagnosis Discharge Diagnosis (1) Streptococcal bacteremia: Status: Acute Asessment and Plan: - Patient initially presented to the ED 03/02/2024 with concerns for abdominal pain -Was left without a UTI was sent home with Keflex -However, she was called back to the ED due to blood cultures showing gram-positive cocci -final results from initial blood culture on 03/02 show group B strep -repeat blood cultures drawn upon return to ED on 03/03 are negative to date -given GBS bacteremia and it being a mild infection, patient will be placed on 1g CTX through 03/16 -midline is being placed prior to discharge -discussed with Infusion Center who has accepted the patient and has received hand-written order (2) Right upper quadrant abdominal pain: Status: Acute Asessment and Plan: -With cholelithiasis but no evidence of acute cholecystitis by imaging -RUQ US showed biliary sludge -pain has since resolved (3) Leukocytosis: Status: Acute Asessment and Plan: -patient had WBC of 18 upon initial presentation to the ED early AM 03/02 -leukocytosis has resolved upon second presentation to the ED/admission and has remained WNL since that time (4) Diabetes: Asessment and Plan: -continue home regimen (5) CKD (chronic kidney disease) stage 3, GFR 30-59 ml/min: Status: Chronic (6) Paroxysmal atrial fibrillation: Asessment and Plan: -contionue home dilt and warfarin (7) Hyperlipidemia: Asessment and Plan: -continue home statin (8) Essential hypertension: Asessment and Plan: -continue home lisinopril -patient persistently HTN during hospitalization and was started on 25mg daily HCTZ and has been normotensive since that time -will discharge with new prescription for 25mg HCTZ daily Discharge Plan Disposition Patient Disposition: Home Condition: Good Discharge Details Reason For Visit: Gram-Positive Cocci in Blood Culture,Cholelithiasi Admit Date/Time: 03/03/24 06:10 Admit Provider: Jayant Flynn Attending Provider: Jayant Flynn Primary Care Provider: Joaquin Moss Hospital Course Hospital Course: Patient initially presented to the hospital for call back after initial blood cultures were found to show gram-positive cocci. She did have white blood cell count on initial presentation, right upper quadrant pain, and UA suspicious for UTI, upon presenting back to the hospital for positive blood cultures, she was afebrile, did not have a leukocytosis, tachycardia or tachypnea. Patient was put on vancomycin and cefepime which was continued until final culture results showed group B strep bacteremia. Given that this would qualify as a mild and spontaneous infection, patient received her first dose of 1 g ceftriaxone which will be continued for an additional 11 days as an outpatient which is being set up with infusion and patient is having midline placed prior to discharge. Home Meds and New Rx's Prescriptions: New hydrochlorothiazide 25 mg Tablet 25 mg PO QAM Qty: 90 0RF Continued lidocaine 4 % adhesive patch,medicated 1 patch topical DAILY PRN (Reason: pain) Qty: 30 0RF omeprazole 40 mg capsule,delayed release(DR/EC) 40 mg PO DAILY Qty: 90 4RF atorvastatin 40 mg tablet 40 mg PO HS Qty: 90 4RF diltiazem HCl [Cardizem CD] 120 mg capsule,extended release 24hr 120 mg PO DAILY Qty: 90 4RF lisinopril-hydrochlorothiazide 20-25 mg tablet 1 tab PO DAILY Qty: 90 3RF diclofenac sodium [Arthritis Pain (diclofenac)] 1 % gel 4 g topical QID Qty: 100 4RF Rx Instructions: apply to single knee, ankle, foot; for foot includes sole/toes/top of foot metformin 500 mg tablet 500 mg PO BID Qty: 180 3RF hydrocortisone [Anusol-HC] 2.5 % cream with perineal applicator 1 applic SD BID-QID PRN (Reason: hemorrhoids) Qty: 30 0RF warfarin 1 mg tablet 2 mg PO QPM Protocol: Dose Management Condition: Friday Dose/Route: 1.5 mg Instruction: 1.5 x 1 mg tablets Condition: Friday Dose/Route: 2 mg Instruction: 2 x 1 mg tablets Condition: Friday Dose/Route: 1.5 mg Instruction: 1.5 x 1 mg tablets Condition: Friday Dose/Route: 1.5 mg Instruction: 1.5 x 1 mg tablets Condition: Dose/Route: 1.5 mg Instruction: 1.5 x 1 mg tablets Condition: Friday Dose/Route: 2 mg Instruction: 2 x 1 mg tablets Condition: Friday Dose/Route: 1.5 mg Instruction: 1.5 x 1 mg tablets Protocol Text: Adjustment Start Date: 02/26/24 INR Value: 2.5 INR Date: 02/26/24 Recheck Date: 03/04/24 acetaminophen 500 mg tablet 500 mg PO Q6H PRN PRN (Reason: pain) Qty: 60 3RF Discontinued cephalexin 500 mg tablet 500 mg PO QID Qty: 28 0RF Discharge Instructions Activity:: Activity as Tolerated Equipment/Supplies:: No Equipment Needed Diet:: As Tolerated Discharge Orders Discharge Orders: Discharge Order (Routine); Ordered 03/05/24 Ordered By: Chemo Roper DS: Summary Time Spent with Patient providing and/or coordinating discharge services: Greater than 30 minutes Status at Discharge Functional status at discharge: independent ambulation Overall status at discharge: patient is back to baseline Mental Status: mental status grossly normal Speech and Movement: speech and movement normal Mood: congruent mood Affect: normal affect Quality:SDOH Health Related Social Needs: No Data to Display Exam Narrative Exam Narrative: Well-appearing older female sitting up on the edge of the bed in no acute distress, ANO x 4, heart regular rhythm, lungs clear to auscultation bilaterally, abdomen soft, nontender, nondistended Psych Mental Status: mental status grossly normal Speech and Movement: speech and movement normal Mood: congruent mood Affect: normal affect DS: Data Vitals/I&O Vitals and I&O: Vital Signs Temperature 97.3 F L 03/05/24 08:01 Temperature Source Tympanic 03/05/24 08:01 Pulse 59 L 03/05/24 08:01 Pulse Rhythm Regular 03/04/24 20:15 Pulse 71 03/03/24 06:50 Respiratory Rate 17 03/05/24 08:01 Respiratory Effort Normal, Non-Labored 03/04/24 20:15 Respiratory Depth Normal 03/04/24 20:15 Respiratory Pattern Normal 03/04/24 20:15 Blood Pressure 162/92 H 03/05/24 09:25 Blood Pressure Mean 109 03/03/24 08:01 Blood Pressure Position Supine 03/03/24 07:48 Pulse Oximetry 98 03/05/24 08:01 Oxygen Delivery Method Room Air 03/05/24 08:01 Oxygen Flow Rate 0 03/05/24 08:01 Pain Level 0 03/05/24 08:01 Comment Will inform RN of BP 03/03/24 08:41 Intake & Output 03/04/24 03/05/24 03/05/24 17:59 05:59 17:59 Intake Total 3250.833 / 3250.833 1200.000 / 4450.833 50 / 50 Balance 3250.833 / 3250.833 1200.000 / 4450.833 50 / 50 Weight 137 lb 12.623 oz Intake: IV 2130.833 / 2130.833 1200.000 / 3330.833 50 / 50 Oral 1120 / 1120 Other: Urine Color Yellow Yellow Urine Appearance Clear Clear Urine Odor Normal Comment Pt voided in toilet Stool Characteristics Liquid Voiding Methods Toilet Toilet Data Completed and Pending Labs on day of discharge: Labs from last 24 hours 03/05/24 03/04/24 06:00 13:00 WBC 8.14 RBC 3.72 L Hgb 11.3 Hct 33.9 L MCV 91 MCH 30.4 MCHC 33.3 RDW 15.5 H Plt Count MPV Sodium 134 L Potassium 4.6 Chloride 100 Carbon Dioxide 26.3 Anion Gap 7.7 BUN 16 Creatinine 0.5 L Est GFR (CKD-EPI 2020) 95.94 Glucose 74 Calcium 8.4 L Random Vancomycin 10.2 Preliminary micro results at discharge 03/03/24 04:17 Blood Culture - Preliminary Blood NO GROWTH 48 HOURS 03/03/24 03:45 Blood Culture - Preliminary Blood NO GROWTH 48 HOURS PFSH All Active Problems (Updated 03/05/24 @ 09:46 by Chemo Roper MD) Streptococcal bacteremia (Acute) Hypokalemia (Acute) CKD (chronic kidney disease) stage 3, GFR 30-59 ml/min (Chronic) Cholelithiasis (Acute) Positive blood cultures (Acute) Right upper quadrant abdominal pain (Acute) Gallbladder Problem (Acute) Scapular dyskinesis (Acute) Syncope (Chronic) Elevated bilirubin (Acute) Leukocytosis (Acute) Upper back pain on right side (Acute) Pain in right shoulder (Acute) Weakness (Acute) Abnormal findings on esophagogastroduodenoscopy (EGD) (Acute 09/16/18) EGD with Dr Olmedo, then followed by Dr Vallecillo, referred to [facility] Chronic anticoagulation (Chronic) Back on Warfarin Jun 12, 2023 Tendinitis of right rotator cuff (Acute) Carpal tunnel syndrome of right wrist (Acute) Advanced care planning/counseling discussion (Acute) Rectal bleeding (Acute) Constipation (Acute) Medical History Renal insufficiency Paroxysmal atrial fibrillation Hyperlipidemia (04/07/13) Gout Family history of premature CAD (04/28/18) father with ND at age 45 and was a heavy smoker. 2 smoking siblings with CAD in 60's. 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[employer] Pets and animals: No Sexually active: No Do you think of yourself as: straight/heterosexual Current gender identity: female What is your relationship status?: How often do you talk on the phone with friends or family?: three or more times per week How often do you get together with friends or relatives?: three or more times per week How often do you attend adventist or sabianism services?: decline to answer Do you belong to any clubs or organized social groups?: yes Panel score (0-1 are the most socially isolated patients): 3 What type of physical activity do you participate in: walking Duration: 30-45 minutes/day Frequency: 5-6 times per week Shannan/Lutheran: No preference Special shannan needs: No Seatbelt use: always Helmet use: Yes Helmet use: always Drive intox or ride w/intox laundry route driver: No Firearms in home: Yes Firearms unloaded and locked: Yes Do you feel safe at home: Yes Do you feel safe in your relationship?: Yes Would you like helpful sources: No Time Spent with Patient Time Spent with Patient: <45 minutes Time was spent: preparing to see the patient(eg.review tests), obtaining and/or reviewing separately otained hiistory, ordering medications,tests, procedures, referring, communicating with other health landcare officer, indepentently interpreting results, counseling the patient and care coordination
[2024-03-05 11:25] VITALS: BP 202/91; PULSE 59; RESP 17; TEMP 36.8; O2SAT 98
--- NOTE | 2024-03-05 14:16 | CMDISCH_ITS ---
Date of service: 03/05/24 Time of Service: 14:16 LACE Index Scoring Tool Questions: Length of Stay (in days): 2 Was the patient admitted via the E.D.?: Yes Comorbidities: Liver or Renal Disease E.D. Visits: 1 Answers: Total Score: 11 Risk of Readmission: High Risk Care Management Discharge Plan Reason for Hospitalization: Gram positive cocci in blood culture Discharge Plan: Eileen will return home today and will plan to go to the infusion room once a day for her IV antibiotic therapy, which will last for eleven additional days. She stated that she plans to return to work next week, but will work short days in order to have her IV antibiotics in the afternoon at the [facility] infusion room. Her will drive her home, and she will follow up with her PCP and discharge plan of care. She is happy to be going home. Patient/Family Education Needs: Review discharge instructions and limitations, discussion of self care needs including ask me three. Services Needed at Discharge: Infusion Therapy SDOH Health Related Social Needs: No Data to Display
[2024-03-05 15:37] VITALS: BP 199/69; PULSE 61; RESP 19; TEMP 36.6; O2SAT 98
[2024-03-05] MEDS: cefTRIAXone 1 GM/50 ML BAG IVPB (15:41)
[2024-03-05] MEDS: Normal Saline Flush 10 ML SYR IVP (15:42)
--- NOTE | 2024-03-05 17:06 | NUR.NOTE ---
Nursing Note: Pt has all personal belongings, has no further questions regarding DC instructions, escorted to main entrance via WC with this nurse, DC to home with via private vehicle
== END 2024-03-05 16:56 | disposition home or self-care (01) | DRG 872 ==
LOC: ER 08:10 → MS 09:27
PROVIDERS: Family Medicine; Admitting Provider Family Medicine; Emergency Provider Emergency Medicine; PCP Nurse Practitioner Family; Visit Provider Family Medicine
DX: R78.81 Bacteremia (principal); K80.00 Calculus of gallbladder with acute cholecystitis without obstruction; D72.828 Other elevated white blood cell count; E87.6 Hypokalemia; E11.22 Type 2 diabetes mellitus with diabetic chronic kidney disease; N18.32 Chronic kidney disease, stage 3b; I48.0 Paroxysmal atrial fibrillation; E78.2 Mixed hyperlipidemia; I12.9 Hypertensive chronic kidney disease with stage 1 through stage 4 chronic kidney disease, or unspecified chronic kidney disease; B95.1 Streptococcus, group B, as the cause of diseases classified elsewhere; Z79.01 Long term (current) use of anticoagulants; Z79.84 Long term (current) use of oral hypoglycemic drugs; R53.1 Weakness; M75.101 Unspecified rotator cuff tear or rupture of right shoulder, not specified as traumatic; K59.00 Constipation, unspecified; E78.5 Hyperlipidemia, unspecified
CPT/HCPCS: 36410; 00123; 36415; 80048; 80053; 83690; 85027; 85652; 87040; 96361; 96365; 96366; 96367; 99285; 76705; 80202; 81003; 81015; 83605; 83735; 85025; 85610; 86140; 87086; 99223; 99233; 99238; G0378; J0692; J0696; J1815; J3370; J3372; J3480

== ENCOUNTER 2024-03-09 14:22 | Emergency (ER) | payer OTHER, SELFPAY ==
[2024-03-09] VITALS (9 sets, daily range): BP systolic 106–147; BP diastolic 65–87; PULSE 65–107; RESP 16; TEMP 37.1; O2SAT 98–100
--- NOTE | 2024-03-09 14:30 | DI.MRI_ITS ---
Exam(s) MR ABDOMEN WO EXAM: MR ABDOMEN WO CLINICAL HISTORY: Bacteremia shoulder pain TECHNIQUE: Multiplanar multisequence MRI of the Abdomen was performed. MRCP sequences also performed. COMPARISON: CT CT CHEST/ABD/PEL W from 03/02/2024 US US ABDOMEN LIMITED from 03/03/2024 FINDINGS: Liver: Unremarkable. Gallbladder: Multiple tiny stones noted in gallbladder. No gallbladder wall thickening or pericholec ystic fluid. Bile Ducts: Unremarkable. No biliary dilatation common duct stone. Pancreas: Unremarkable. No surrounding inflammation. Adrenals: Unremarkable. Kidneys: Unremarkable. Spleen: Unremarkable. Aorta: Unremarkable. Soft Tissues: Unremarkable. Bone: Unremarkable. Lymph Nodes: Unremarkable. Mesentery: No ascites. No focal fluid collection. Bowel: No abnormal dilatation or wall thickening. IMPRESSION: Cholelithiasis. No evidence of acute cholecystitis or pancreatitis. . DATA REPOSITORY:
--- NOTE | 2024-03-09 14:30 | W.ED.GENAD ---
Discharge Plan Disposition Patient Disposition: Home Discharge Details Clinical Impression: Nausea & vomiting Primary Care Provider: Joaquin Moss ED Provider: Velasquez Santoro [place] Meds and New Rx's Prescriptions: Continued lidocaine 4 % adhesive patch,medicated 1 patch topical DAILY PRN (Reason: pain) Qty: 30 0RF omeprazole 40 mg capsule,delayed release(DR/EC) 40 mg PO DAILY Qty: 90 4RF atorvastatin 40 mg tablet 40 mg PO HS Qty: 90 4RF diltiazem HCl [Cardizem CD] 120 mg capsule,extended release 24hr 120 mg PO DAILY Qty: 90 4RF lisinopril-hydrochlorothiazide 20-25 mg tablet 1 tab PO DAILY Qty: 90 3RF diclofenac sodium [Arthritis Pain (diclofenac)] 1 % gel 4 g topical QID Qty: 100 4RF Rx Instructions: apply to single knee, ankle, foot; for foot includes sole/toes/top of foot metformin 500 mg tablet 500 mg PO BID Qty: 180 3RF ondansetron 4 mg tablet,disintegrating 4 mg PO Q6H PRN (Reason: nausea and vomiting) Qty: 30 0RF hydrocortisone [Anusol-HC] 2.5 % cream with perineal applicator 1 applic WA BID-QID PRN (Reason: hemorrhoids) Qty: 30 0RF warfarin 1 mg tablet 2 mg PO QPM Protocol: Dose Management Condition: Friday Dose/Route: 1.5 mg Instruction: 1.5 x 1 mg tablets Condition: Friday Dose/Route: 2 mg Instruction: 2 x 1 mg tablets Condition: Friday Dose/Route: 1.5 mg Instruction: 1.5 x 1 mg tablets Condition: Friday Dose/Route: 1.5 mg Instruction: 1.5 x 1 mg tablets Condition: Dose/Route: 1.5 mg Instruction: 1.5 x 1 mg tablets Condition: Friday Dose/Route: 2 mg Instruction: 2 x 1 mg tablets Condition: Friday Dose/Route: 1.5 mg Instruction: 1.5 x 1 mg tablets Protocol Text: Adjustment Start Date: 02/26/24 INR Value: 2.5 INR Date: 02/26/24 Recheck Date: 03/04/24 hydrochlorothiazide 25 mg Tablet 25 mg PO QAM Qty: 90 0RF acetaminophen 500 mg tablet 500 mg PO Q6H PRN PRN (Reason: pain) Qty: 60 3RF Discharge Instructions Additional Instructions: You are seen in the emergency department for your nausea and vomiting. Your blood work showed that your kidney function has decreased slightly. Your INR level??your warfarin level was very high. Please hold your warfarin this evening and have your level rechecked tomorrow. Please return to the emergency department if you develop fevers nausea vomiting or cannot eat or drink. Please take these nausea medications as directed. Discharge Data Discharge Date/Time-TO BE ENTERED AT DEPARTURE: 03/09/24 18:05 HPI General Date/Time Provider Initiated Documentation: 03/09/24 14:30. HPI Narrative: MDM This is an overall well-appearing normothermic and not tachycardic 78-year-old female with recent bacteremia on outpatient ceftriaxone returning to the emergency department the setting of recurrent nausea vomiting and right shoulder pain concerning for the possibility of common duct stone for which patient will undergo MRCP following blood cultures lactate and ceftriaxone. No pain out of proportion to suggest necrotizing soft tissue infection. Patient has good range of motion in her right shoulder so I am not concerned for septic joint. She is able to touch her right hand to her contralateral left shoulder so I am not concerned for shoulder dislocation. In the absence of any recurrent trauma will defer repeat plain films. Based on age will obtain troponin and ECG to assess for myocardial injury given nausea. No syncope nor chest pain so my suspicion for aortic dissection is low. No cough so my suspicion is low for pneumonia. No shortness of breath to suggest PE. No right lower quadrant tenderness to suggest appendicitis I did not feel that the patient required a CT scan of her abdomen. No diarrhea to suggest diverticulitis. Given nontender abdomen I was not suspicious for small bowel obstruction. No dysuria nor frequency so doubt UTI so did not send urinalysis. No rash to shoulder to suggest zoster. Left upper extremity PICC line with no significant erythema nor tenderness so my suspicion is low for infection. Given no right upper quadrant tenderness I was not concerned for acute cholecystitis I did not feel that the patient required an ultrasound of her right upper quadrant. 2:56 PM Mildly elevated lactate at 2.0 mmol/L. CBC shows thrombocytosis new compared to prior. No anemia. No leukocytosis. 3:15 PM Comprehensive metabolic panel showing ACOSTA on CKD. Mild hyperglycemia but no anion gap normal bicarbonate??not consistent with DKA. Very mild hypokalemia. Elevated LFTs compared to prior. Normal reassuring bilirubin. Negative troponin. 3:22 PM Supratherapeutic INR. No active bleeding so we will defer reversal at this point in time. Normal reassuring lipase. 5:34 PM Patient tolerated p.o. challenge in the ED. I advised her to make sure she urinates least once every 6 hours while awake. I sent her home with a prescription for ondansetron. Her MRI was reassuring. I asked health community health coordinator Maria Dolores to have the patient seen later this week by her primary care provider for repeat basic metabolic panel given ACOSTA. I told patient to hold her warfarin this evening and have her warfarin recheck tomorrow. Advised patient to return to the ED if she developed any fevers cannot eat or drink as result of nausea or vomiting or if she developed any black or bloody stools or any epistaxis. She understood her return indications and was discharged with empiric trial of expectant outpatient management. Chronic conditions affecting the care of the patient: Right rotator cuff tendinitis History obtained from an outside historian:N/A External record review: [facility] EMR Diagnostic interpretations performed by me: Per my independent interpretation EKG shows: Rate controlled atrial fibrillation at a rate of 74. Left axis deviation no signs of LVH. QTc within normal limits. T wave flattening in lead III. T wave inversion in V6. Compared to prior dated earlier this month T wave version 3 has improved. T wave flattening in V6 is slightly more pronounced. No ST segment abnormalities. No acute injury pattern. ]Medications: Ceftriaxone Social determinants of health affecting disposition: N/A Management discussed with: N/A Treatment/interventions considered: Hospitalization but deferred Response to therapies provided: Improved symptoms in the ED HPI This is a 78-year-old female with recent diagnosis of bacteremia on outpatient ceftriaxone arrived to the emergency department via private vehicle today with nausea and vomiting that began yesterday. Patient reports that she has not had anything to eat today. She denies abdominal pain but has had trouble keeping food down. She says she vomited 5 times last night. Given her vomiting she was not able to receive her left upper extremity midline infusion of ceftriaxone today and was sent to the ED. She has had right shoulder pain for the past several weeks. She denies injuries. She endorsed chills last night. She denies chest pain shortness of breath abdominal pain fevers. No dysuria nor frequency. Exam General: Well-appearing in no acute distress speaking in complete sentences. Head: Normocephalic, atraumatic. Eye: Extraocular eye movements intact. No conjunctival injection. No scleral icterus. Ear, nose, mouth, throat: Grossly normal inspection. Normal voice, handling secretions normally. Neck: Trachea midline. Cardiovascular: Well-perfused distal extremities. Regular rate and rhythm Respiratory: Nonlabored respiration. Clear lungs bilaterally Gastrointestinal: Nondistended abdomen. Soft nontender. No rebound. No guarding. Musculoskeletal: No edema. Moving all 4 extremities spontaneously. Left upper extremity with PICC line with no significant erythema nor tenderness. Right upper extremity no rash to shoulder. Intact range of motion in right shoulder. Patient is able to touch right hand to contralateral left shoulder. She does have some scapular tenderness. Skin: Normal for age and race, grossly normal temperature and turgor. No acute rash. Neurologic: Alert and appropriate, no apparent acute deficits. GCS 15. Psychiatric: Mood and manner are appropriate. Grooming and personal hygiene are appropriate. Related Data Home Medications Medication Instructions Recorded Confirmed acetaminophen 500 mg tablet 500 mg PO Q6H PRN PRN pain #60 tabs 05/19/19 03/09/24 hydrocortisone 2.5 % topical cream 1 applic WA BID-QID PRN 03/01/23 03/09/24 with perineal applicator hemorrhoids #30 grams (Anusol-HC) lidocaine 4 % topical patch 1 patch topical DAILY PRN pain #30 07/08/23 03/09/24 ea atorvastatin 40 mg tablet 40 mg PO HS #90 tabs 12/11/23 03/09/24 diclofenac sodium 1 % topical gel 4 g topical QID #100 grams 12/11/23 03/09/24 (Arthritis Pain (diclofenac)) diltiazem HCl 120 mg 120 mg PO DAILY #90 caps 12/11/23 03/09/24 capsule,extended release 24 hr (Cardizem CD) lisinopril 20 1 tab PO DAILY #90 tabs 12/11/23 03/09/24 mg-hydrochlorothiazide 25 mg tablet metformin 500 mg tablet 500 mg PO BID #180 tabs 12/11/23 03/09/24 omeprazole 40 mg capsule,delayed 40 mg PO DAILY #90 caps 12/11/23 03/09/24 release warfarin 1 mg tablet 2 mg PO QPM 03/04/24 03/09/24 hydrochlorothiazide 25 mg tablet 25 mg PO QAM #90 tabs 03/05/24 03/09/24 ondansetron 4 mg disintegrating 4 mg PO Q6H PRN nausea and 03/09/24 03/09/24 tablet vomiting #30 tabs Previous Rx's Medication Instructions Recorded acetaminophen 500 mg tablet 500 mg PO Q6H PRN PRN pain #60 tabs 05/19/19 hydrocortisone 2.5 % topical cream 1 applic WA BID-QID PRN 03/01/23 with perineal applicator hemorrhoids #30 grams (Anusol-HC) lidocaine 4 % topical patch 1 patch topical DAILY PRN pain #30 07/08/23 ea atorvastatin 40 mg tablet 40 mg PO HS #90 tabs 12/11/23 diclofenac sodium 1 % topical gel 4 g topical QID #100 grams 12/11/23 (Arthritis Pain (diclofenac)) diltiazem HCl 120 mg 120 mg PO DAILY #90 caps 12/11/23 capsule,extended release 24 hr (Cardizem CD) lisinopril 20 1 tab PO DAILY #90 tabs 12/11/23 mg-hydrochlorothiazide 25 mg tablet metformin 500 mg tablet 500 mg PO BID #180 tabs 12/11/23 omeprazole 40 mg capsule,delayed 40 mg PO DAILY #90 caps 12/11/23 release hydrochlorothiazide 25 mg tablet 25 mg PO QAM #90 tabs 03/05/24 ondansetron 4 mg disintegrating 4 mg PO Q6H PRN nausea and 03/09/24 tablet vomiting #30 tabs Allergies Allergy/AdvReac Type Severity Reaction Status Date / Time Penicillins AdvReac Intermediate Rash Verified 03/09/24 13:42 bandaids AdvReac Mild breaks Uncoded 03/09/24 13:42 out General BRITTANY: 3 Medical Decision Making Quality:SDOH Health Related Social Needs: No Data to Display PFSH All Active Problems (Updated 03/09/24 @ 17:36 by Velasquez Santoro MD) Nausea & vomiting (Acute) Streptococcal bacteremia (Acute) CKD (chronic kidney disease) stage 3, GFR 30-59 ml/min (Chronic) Positive blood cultures (Acute) Gallbladder Problem (Acute) Scapular dyskinesis (Acute) Syncope (Chronic) Elevated bilirubin (Acute) Upper back pain on right side (Acute) Pain in right shoulder (Acute) Weakness (Acute) Abnormal findings on esophagogastroduodenoscopy (EGD) (Acute 09/16/18) EGD with Dr Olmedo, then followed by Dr Vallecillo, referred to [facility] GI Chronic anticoagulation (Chronic) Back on Warfarin Jun 12, 2023 Tendinitis of right rotator cuff (Acute) Carpal tunnel syndrome of right wrist (Acute) Advanced care planning/counseling discussion (Acute) Rectal bleeding (Acute) Constipation (Acute) Medical History Renal insufficiency Paroxysmal atrial fibrillation Hyperlipidemia (04/07/13) Gout Family history of premature CAD (04/28/18) father with RI at age 45 and was a heavy smoker. 2 smoking siblings with CAD in 60's. 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 Family History Mother Cancer Brother Heart disease Brother Cancer Sister Heart disease Sister Alcohol abuse Other Family history of premature CAD Social History Smoking/Tobacco Use Status: Never Second Hand Exposure: Yes Smoking risk assessment performed?: Yes Alcohol Intake: never Drug use: Never Substance use type: does not use Adopted: No Household members: spouse Housing: house Education Level: middle school Details: 8 years current occupation: [employer] Pets and animals: No Sexually active: No Do you think of yourself as: straight/heterosexual Current gender identity: female What is your relationship status?: How often do you talk on the phone with friends or family?: three or more times per week How often do you get together with friends or relatives?: three or more times per week How often do you attend religious or voodoo services?: decline to answer Do you belong to any clubs or organized social groups?: yes Panel score (0-1 are the most socially isolated patients): 3 What type of physical activity do you participate in: walking Duration: 30-45 minutes/day Frequency: 5-6 times per week Shannan/Zoroastrianism: No preference Special shannan needs: No Seatbelt use: always Helmet use: Yes Helmet use: always Drive intox or ride w/intox haul driver: No Firearms in home: Yes Firearms unloaded and locked: Yes Do you feel safe at home: Yes Do you feel safe in your relationship?: Yes Would you like helpful sources: No
--- NOTE | 2024-03-09 14:45 | RT.EKG_ITS ---
APPROVED REPORT Exam: Resting ECG Reason for Exam: Nausea Patient Location: E HR:74 bpm ECG Measurements Heart Rate 74 AXIS AL [id number] P [id number] QRSd 82 QRS -2 QT 376 T 174 QTc 418 Conclusion Atrial fibrillation...? atrial activity Rate controlled atrial fibrillation at a rate of 74. Left axis deviation no signs of LVH. QTc withi n normal limits. T wave flattening in lead III. T wave inversion in V6. Compared to prior dated ea rlier this month T wave version 3 has improved. T wave flattening in V6 is slightly more pronounced. No ST segment abnormalities. No acute injury pattern.
[2024-03-09] MEDS: Normal Saline 500 ML IV (14:48)
[2024-03-09] MEDS: Ondansetron 4 MG/2 ML VIAL IVP (14:49)
[2024-03-09 14:50] LABS: Absolute Basophil Count 0.07 10^3/uL (0.0-0.2); Absolute Eosinophil Count 0.17 10^3/uL (0.0-0.7); Absolute Lymphocyte Count 2.91 10^3/uL (1.2-3.4); Absolute Monocyte Count 0.74 10^3/uL (0.1-0.8); Basophils % 0.7 %; Eosinophils % 1.7 %; HCT 41.8 % (36.0-46.0); HGB 13.9 g/dL (11.2-15.7); Lymphocytes % 29.1 %; MCH 29.7 pg (27.0-33.0); MCHC 33.3 % (32.0-36.0); MCV 89 fL (80-95); MPV 9.7 fL (8.0-11.0); Monocytes % 7.4 %; Neutrophils % 59.1 %; Platelet Count 420 10^3/uL (130-400); RBC 4.68 10^6/uL (3.93-5.22); RDW 13.2 % (11.7-14.6); RDW-SD 42.8 fL; WBC 9.99 10^3/uL (4.4-10.8)
[2024-03-09 15:02] LABS: Prothrombin Time 56.2 sec (9.1-11.1)
[2024-03-09 15:08] LABS: ALT 77 U/L (14-59); AST 51 U/L (15-37); Albumin 3.3 g/dL (3.4-5.0); Alkaline Phosphatase 118 U/L (46-116); Anion Gap 10.9 mmol/L (3-11); BUN 25 mg/dL (7-18); Bilirubin, Total 0.56 mg/dL (0.2-1.0); CO2 26.1 mmol/L (21.0-32.0); CREATININE 1.6 mg/dL (0.55-1.02); Calcium 8.8 mg/dL (8.5-10.1); Chloride 100 mmol/L (98-107); Estimated GFR 32.81 (mL/min/1.73m2); Glucose 144 mg/dL (74-106); Potassium 3.4 mmol/L (3.5-5.1); Sodium 137 mmol/L (136-145); Total Protein 7.5 g/dL (6.4-8.2)
[2024-03-09 15:11] LABS: Troponin I < 50 ng/L (< or =60)
[2024-03-09 15:16] LABS: Lipase 40 U/L (16-77)
[2024-03-09 15:19] LABS: INR 6.6 (0.9-1.1)
[2024-03-09] MEDS: cefTRIAXone 2 GM/50 ML BAG IVPB (16:58)
[2024-03-09] MEDS: Ondansetron O.D.T. 4 MG TABEF, 3 TABS/BTL PO (17:51)
--- NOTE | 2024-03-09 18:40 | NUR.NOTE ---
Referral faxed to [facility], Joaquin Champion, for an appointment tomorrow to have her INR and Basic Metabolic Drawn again.
== END 2024-03-09 18:05 | disposition home or self-care (01) ==
PROVIDERS: Emergency Provider Emergency Medicine; PCP Nurse Practitioner Family
DX: R11.2 Nausea with vomiting, unspecified (principal); M25.511 Pain in right shoulder; M77.8 Other enthesopathies, not elsewhere classified; R78.81 Bacteremia; R79.1 Abnormal coagulation profile; Z79.01 Long term (current) use of anticoagulants; E11.22 Type 2 diabetes mellitus with diabetic chronic kidney disease; E11.65 Type 2 diabetes mellitus with hyperglycemia; I12.9 Hypertensive chronic kidney disease with stage 1 through stage 4 chronic kidney disease, or unspecified chronic kidney disease; N18.30 Chronic kidney disease, stage 3 unspecified; N17.9 Acute kidney failure, unspecified; Z79.899 Other long term (current) drug therapy
CPT/HCPCS: 80053; 83690; 87040; 93005; 96361; 96365; 96375; 99284; 74181; 83605; 84484; 85025; 85610; 93010; J0696; J2405

== ENCOUNTER 2024-03-14 01:12 | Outpatient (RCR) | payer OTHER, SELFPAY ==
[2024-03-06 13:41] VITALS: BP 181/88; PULSE 65; RESP 14; TEMP 36.2; O2SAT 98
[2024-03-06] MEDS: cefTRIAXone 1 GM/50 ML BAG IVPB (13:49)
[2024-03-06] MEDS: Normal Saline Flush 10 ML SYR IVP (13:50)
[2024-03-07] MEDS: Normal Saline Flush 10 ML SYR IVP (13:40)
[2024-03-07] MEDS: cefTRIAXone 1 GM/50 ML BAG IVPB (13:40)
[2024-03-08] MEDS: cefTRIAXone 1 GM/50 ML BAG IVPB (13:44)
[2024-03-08] MEDS: Normal Saline Flush 10 ML SYR IVP (13:48)
[2024-03-10] MEDS: cefTRIAXone 1 GM/50 ML BAG IVPB (13:29)
[2024-03-10] MEDS: Normal Saline Flush 10 ML SYR IVP (13:34)
[2024-03-11] MEDS: cefTRIAXone 1 GM/50 ML BAG IVPB (13:33)
[2024-03-11] MEDS: Normal Saline Flush 10 ML SYR IVP (13:37)
[2024-03-12] MEDS: cefTRIAXone 1 GM/50 ML BAG IVPB (13:36)
[2024-03-12] MEDS: Normal Saline Flush 10 ML SYR IVP (13:37)
[2024-03-12 14:46] LABS: Anion Gap 8.6 mmol/L (3-11); BUN 19 mg/dL (7-18); CO2 28.4 mmol/L (21.0-32.0); CREATININE 1.2 mg/dL (0.55-1.02); Calcium 8.8 mg/dL (8.5-10.1); Chloride 103 mmol/L (98-107); Estimated GFR 46.33 (mL/min/1.73m2); Glucose 124 mg/dL (74-106); Potassium 3.6 mmol/L (3.5-5.1); Sodium 140 mmol/L (136-145)
[2024-03-13] MEDS: cefTRIAXone 1 GM/50 ML BAG IVPB (13:57)
[2024-03-14] MEDS: Normal Saline Flush 10 ML SYR IVP (13:45)
[2024-03-14] MEDS: cefTRIAXone 1 GM/50 ML BAG IVPB (13:45)
== END 2024-03-14 23:59 | disposition home or self-care (01) ==
LOC: INF 01:12
PROVIDERS: PCP Nurse Practitioner Family; Visit Provider Family Medicine
DX: A49.1 Streptococcal infection, unspecified site (principal)
CPT/HCPCS: 36415; 36591; 80048; 96365; J0696

== ENCOUNTER 2024-03-16 02:38 | Outpatient (RCR) | payer OTHER, SELFPAY ==
[2024-03-15 00:12] VITALS: BP 181/88; PULSE 65; RESP 14; TEMP 36.2
[2024-03-15] MEDS: cefTRIAXone 1 GM/50 ML BAG IVPB (13:42)
[2024-03-15] MEDS: Normal Saline Flush 10 ML SYR IVP (13:42)
[2024-03-16] MEDS: cefTRIAXone 1 GM/50 ML BAG IVPB (13:31)
[2024-03-16] MEDS: Normal Saline Flush 10 ML SYR IVP (13:31)
[2024-03-16] MEDS: Bacitracin 1 PACKET (13:34)
== END 2024-04-14 23:59 | disposition home or self-care (01) ==
LOC: INF 02:38
PROVIDERS: PCP Nurse Practitioner Family; Visit Provider Family Medicine
DX: A49.1 Streptococcal infection, unspecified site (principal)
CPT/HCPCS: 96365; J0696

== ENCOUNTER 2024-03-19 15:33 | Outpatient (REF) | payer OTHER, SELFPAY ==
[2024-03-19 21:09] LABS: Abs Immature Grans 0.02 10^3/uL (0.0-0.06); Absolute Basophil Count 0.05 10^3/uL (0.0-0.2); Absolute Eosinophil Count 0.17 10^3/uL (0.0-0.7); Absolute Lymphocyte Count 1.59 10^3/uL (1.2-3.4); Absolute Neutrophil Count 4.21 10^3/uL (1.2-6.7); Basophils % 0.8 %; Eosinophils % 2.6 %; HCT 38.8 % (36.0-46.0); HGB 12.7 g/dL (11.2-15.7); Immature Grans % 0.3 %; Lymphocytes % 24.7 %; MCH 30.2 pg (27.0-33.0); MCHC 32.7 % (32.0-36.0); MCV 92 fL (80-95); MPV 9.7 fL (8.0-11.0); Monocytes % 6.2 %; Neutrophils % 65.4 %; Platelet Count 308 10^3/uL (130-400); RDW 13.5 % (11.7-14.6); RDW-SD 45.9 fL; WBC 6.44 10^3/uL (4.4-10.8)
[2024-03-19 21:20] LABS: ALT 65 U/L (14-59); AST 41 U/L (15-37); Albumin 3.7 g/dL (3.4-5.0); Alkaline Phosphatase 96 U/L (46-116); BUN 24 mg/dL (7-18); Bilirubin, Total 0.65 mg/dL (0.2-1.0); CREATININE 1.3 mg/dL (0.55-1.02); Calcium 9.5 mg/dL (8.5-10.1); Chloride 102 mmol/L (98-107); Estimated GFR 42.09 (mL/min/1.73m2); Glucose 109 mg/dL (74-106); Potassium 4.1 mmol/L (3.5-5.1); Sodium 141 mmol/L (136-145); Total Protein 7.3 g/dL (6.4-8.2)
== END 2024-03-19 15:34 | disposition home or self-care (01) ==
LOC: LBN 15:33
PROVIDERS: PCP Nurse Practitioner Family; Visit Provider Nurse Practitioner Family
DX: R78.81 Bacteremia (principal); R79.89 Other specified abnormal findings of blood chemistry; R11.2 Nausea with vomiting, unspecified; B95.5 Unspecified streptococcus as the cause of diseases classified elsewhere; K82.8 Other specified diseases of gallbladder; I10 Essential (primary) hypertension; E11.9 Type 2 diabetes mellitus without complications
CPT/HCPCS: 80053; 85025

== ENCOUNTER 2024-03-24 18:39 | Emergency (ER) | payer OTHER, SELFPAY ==
[2024-03-24] VITALS (30 sets, daily range): BP systolic 89–140; BP diastolic 52–85; PULSE 62–89; RESP 13–26; TEMP 36.1; O2SAT 97–100
--- NOTE | 2024-03-24 19:00 | RT.EKG_ITS ---
APPROVED REPORT Exam: Resting ECG Reason for Exam: dizziness Patient Location: E HR:81 bpm ECG Measurements Heart Rate [address] [id number] P [id number] QRSd 88 QRS 15 QT 376 T 67 QTc 437 Conclusion Atrial fibrillation...? atrial activity I have reviewed and interpreted ECG and agree with software generated interpretation.
--- NOTE | 2024-03-24 19:30 | DI.RAD_ITS ---
Exam(s) XR CHEST 2V PA LATERAL EXAM: XR CHEST 2V PA LATERAL CLINICAL HISTORY: dizziness TECHNIQUE: 2D digital imaging was performed. Two views. COMPARISON: CT CT CHEST/ABD/PEL W from 03/02/2024 FINDINGS: HEART: Normal size. Aorta: Not dilated. PULMONARY VASCULATURE: Normal. MEDIASTINUM: Unremarkable. LUNGS: Mild linear scarring left lower lobe, otherwiseclear. PLEURAL SPACE: No pleural effusion or pneumothorax. BONE:Unremarkable for age. SOFT TISSUES: Unremarkable. IMPRESSION: No acute abnormality. DATA REPOSITORY: RADIATION DOSE DELIVERED:
--- NOTE | 2024-03-24 19:30 | DI.CT_ITS ---
Exam(s) CT ABDOMEN PELVIS W EXAM: CT ABDOMEN PELVIS W CLINICAL HISTORY: R sided abd pain w/N/V. TECHNIQUE: Imaging Protocol: Axial computed tomography images with coronal and sagittal reformatted images were created and reviewed CONTRAST MATERIAL: Intravenous: Omnipaque 350 Contrast volume:100 ml Oral: no COMPARISON: CT CT CHEST/ABD/PEL W from 03/02/2024 FINDINGS: ABDOMEN and PELVIS: Lung Bases: No acute findings. Liver: Normal density. No suspicious mass. Gallbladder and biliary tract: Layering material in the gallbladder, tiny stones versus sludge. This was seen on the prior exam. No wall thickening. No biliary dilation. Pancreas: Normal density. No abnormal calcifications or inflammatory process. No evidence of mass. Spleen: Normal. Kidneys: Normal size, contour and axis. No radiodense stones. No obstructive uropathy. No suspicious masses seen. Adrenal glands: No masses seen. Vasculature: Abdominal aorta non-dilated. Atherosclerotic changes. Soft tissues: Unremarkable. Bladder: Nearly empty. No gross wall thickening. No calculi.No focal mass. Bowel: No obstruction. Mild edema in the wall of the rectosigmoid could indicate mild proctitis/coli tis.. Appendix not seen. Peritoneal cavity: No ascites. No focal collection. No mesenteric inflammatory response. Bones: Degenerative changes in the lumbar spine. Reproductive organs: Status post hysterectomy. Lymph nodes: No pathologically enlarged lymph nodes. IMPRESSION:: Mild rectosigmoid colitis. Question gallbladder sludge versus tiny stones. RADIATION DOSE DELIVERED: Total DLP DATA REPOSITORY: All CT scans at this facility are submitted to the National Radiology Data Registry (NRDR) Dose Index Registry (DIR) with the [employer] (ACR). RADIATION OPTIMIZATION: All CT scans at this facility use at least one of these dose optimization te chniques: automated exposure control; mA and/or kV adjustment per patient size (includes targeted exa ms where dose is matched to clinical indication); or iterative reconstruction.
--- NOTE | 2024-03-24 19:36 | W.ED.GENAD ---
Discharge Plan Disposition Patient Disposition: Home Condition: Stable Discharge Details Clinical Impression: Colitis, Nausea & vomiting Primary Care Provider: Joaquin Moss ED Provider: Marnie Dee Home Meds and New Rx's Prescriptions: New metronidazole 500 mg tablet 500 mg PO BID Qty: 14 0RF ciprofloxacin HCl 500 mg tablet 500 mg PO BID Qty: 14 0RF No Action lidocaine 4 % adhesive patch,medicated 1 patch topical DAILY PRN (Reason: pain) Qty: 30 0RF omeprazole 40 mg capsule,delayed release(DR/EC) 40 mg PO DAILY Qty: 90 4RF atorvastatin 40 mg tablet 40 mg PO HS Qty: 90 4RF diltiazem HCl [Cardizem CD] 120 mg capsule,extended release 24hr 120 mg PO DAILY Qty: 90 4RF lisinopril-hydrochlorothiazide 20-25 mg tablet 1 tab PO DAILY Qty: 90 3RF diclofenac sodium [Arthritis Pain (diclofenac)] 1 % gel 4 g topical QID Qty: 100 4RF Rx Instructions: apply to single knee, ankle, foot; for foot includes sole/toes/top of foot metformin 500 mg tablet 500 mg PO BID Qty: 180 3RF ondansetron 4 mg tablet,disintegrating 4 mg PO Q6H PRN (Reason: nausea and vomiting) Qty: 30 0RF hydrocortisone [Anusol-HC] 2.5 % cream with perineal applicator 1 applic LA BID-QID PRN (Reason: hemorrhoids) Qty: 30 0RF warfarin 1 mg tablet 2 mg PO QPM Protocol: Dose Management Condition: Friday Dose/Route: 1.5 mg Instruction: 1.5 x 1 mg tablets Condition: Friday Dose/Route: 1.5 mg Instruction: 1.5 x 1 mg tablets Condition: Friday Dose/Route: 1.5 mg Instruction: 1.5 x 1 mg tablets Condition: Friday Dose/Route: 1.5 mg Instruction: 1.5 x 1 mg tablets Condition: Dose/Route: 1.5 mg Instruction: 1.5 x 1 mg tablets Condition: Friday Dose/Route: 1.5 mg Instruction: 1.5 x 1 mg tablets Condition: Friday Dose/Route: 1.5 mg Instruction: 1.5 x 1 mg tablets Protocol Text: Adjustment Start Date: Friday03/19/24 INR Value: 2.4 INR Date: 03/19/24 Recheck Date: 03/26/24 hydrochlorothiazide 25 mg Tablet 25 mg PO QAM Qty: 90 0RF acetaminophen 500 mg tablet 500 mg PO Q6H PRN PRN (Reason: pain) Qty: 60 3RF HPI General Date/Time Provider Initiated Documentation: 03/24/24 19:11. HPI Narrative: Eileen is a 78-year-old female with history of CKD stage III, A-fib on anticoagulation, and known gallstones who presents to the emergency department today for evaluation for dehydration. She reports that she was hospitalized last month, diagnosed with gallstones but no evidence of cholecystitis requiring removal of gallbladder. She reports she has had ongoing nausea/vomiting daily since then with occasional bouts of dizziness. Last night around midnight she woke up with dizziness that caused her to fall down onto the bed. She said this lasted for a number of minutes, resolved spontaneously. This is not accompanied by any palpitations, chest pain, or shortness of breath. She had another episode later today similar. She says that she has had similar episodes of dizziness in the past but they have become more frequent since developing abdominal pain associated w gallstones (located in the R side of abdomen, RUQ>RLQ). Today she has only been able to hold down a couple of ounces of water, urinated once, a scant amount of dark urine. She denies fever/chills, headache, vision changes, cough, chest pain, shortness of breath, blood in stool or emesis, change in bowel function. She says that she has had normal soft brown stools daily. Does have a history of hysterectomy due to uterine cancer. Physical exam remarkable for significant tenderness to palpation to right upper quadrant, mild tenderness with right lower quadrant. Normoactive bowel sounds. Dry MM. No CVA tenderness. Easy work of breathing, lung sounds clear bilaterally. Irregular irregular heart rate noted. Cranial nerves II through XII intact as tested. No pedal edema. DDx includes but is not limited to: Dehydration, ACOSTA, cholecystitis, choledocholithiasis, common bile duct obstruction, gastroenteritis, cardiac arrhythmia, electrolyte imbalance I independently interpreted the following tests: EKG reassuring, A-fib rate 81. No changes consistent with acute ischemia. CBC, PT/INR, and initial troponin reassuring. CMP notable for creatinine 1.6 with BUN 31, consistent with prerenal azotemia. Lactate is elevated at 2.0. Hypomagnesemia noted, 1.6. While in the emergency department Eileen received IV fluids and Zofran for nausea and dehydration. She was able to tolerate p.o. fluids and crackers without any difficulty. CT abdomen/pelvis performed, notable for mild colitis/proctitis. No gallbladder wall thickening or significant biliary dilatation. Overall workup today reassuring. Discussed with patient admission versus at home management. Will treat colitis with abx. Strongly stressed the importance of her being able to maintain good p.o. intake at home to maintain kidney function. Repeat lactate was noted to be elevated above previous, 2.1. Will administer second liter of IV fluids. Patient to continue p.o. fluids and will repeat lactate again in 2 hours. Handoff report given to Dr Jackson Related Data Home Medications Medication Instructions Recorded Confirmed acetaminophen 500 mg tablet 500 mg PO Q6H PRN PRN pain #60 tabs 05/19/19 03/24/24 hydrocortisone 2.5 % topical cream 1 applic LA BID-QID PRN 03/01/23 03/24/24 with perineal applicator hemorrhoids #30 grams (Anusol-HC) lidocaine 4 % topical patch 1 patch topical DAILY PRN pain #30 07/08/23 03/24/24 ea atorvastatin 40 mg tablet 40 mg PO HS #90 tabs 12/11/23 03/24/24 diclofenac sodium 1 % topical gel 4 g topical QID #100 grams 12/11/23 03/24/24 (Arthritis Pain (diclofenac)) diltiazem HCl 120 mg 120 mg PO DAILY #90 caps 12/11/23 03/24/24 capsule,extended release 24 hr (Cardizem CD) lisinopril 20 1 tab PO DAILY #90 tabs 12/11/23 03/24/24 mg-hydrochlorothiazide 25 mg tablet metformin 500 mg tablet 500 mg PO BID #180 tabs 12/11/23 03/24/24 omeprazole 40 mg capsule,delayed 40 mg PO DAILY #90 caps 12/11/23 03/24/24 release warfarin 1 mg tablet 2 mg PO QPM 03/04/24 03/24/24 hydrochlorothiazide 25 mg tablet 25 mg PO QAM #90 tabs 03/05/24 03/24/24 ondansetron 4 mg disintegrating 4 mg PO Q6H PRN nausea and 03/09/24 03/24/24 tablet vomiting #30 tabs ciprofloxacin HCl 500 mg tablet 500 mg PO BID #14 tabs 03/24/24 metronidazole 500 mg tablet 500 mg PO BID #14 tabs 03/24/24 Previous Rx's Medication Instructions Recorded acetaminophen 500 mg tablet 500 mg PO Q6H PRN PRN pain #60 tabs 05/19/19 hydrocortisone 2.5 % topical cream 1 applic LA BID-QID PRN 03/01/23 with perineal applicator hemorrhoids #30 grams (Anusol-HC) lidocaine 4 % topical patch 1 patch topical DAILY PRN pain #30 07/08/23 ea atorvastatin 40 mg tablet 40 mg PO HS #90 tabs 12/11/23 diclofenac sodium 1 % topical gel 4 g topical QID #100 grams 12/11/23 (Arthritis Pain (diclofenac)) diltiazem HCl 120 mg 120 mg PO DAILY #90 caps 12/11/23 capsule,extended release 24 hr (Cardizem CD) lisinopril 20 1 tab PO DAILY #90 tabs 12/11/23 mg-hydrochlorothiazide 25 mg tablet metformin 500 mg tablet 500 mg PO BID #180 tabs 12/11/23 omeprazole 40 mg capsule,delayed 40 mg PO DAILY #90 caps 12/11/23 release hydrochlorothiazide 25 mg tablet 25 mg PO QAM #90 tabs 03/05/24 ondansetron 4 mg disintegrating 4 mg PO Q6H PRN nausea and 03/09/24 tablet vomiting #30 tabs ciprofloxacin HCl 500 mg tablet 500 mg PO BID #14 tabs 03/24/24 metronidazole 500 mg tablet 500 mg PO BID #14 tabs 03/24/24 Allergies Allergy/AdvReac Type Severity Reaction Status Date / Time Penicillins AdvReac Intermediate Rash Verified 03/24/24 18:53 bandaids AdvReac Mild breaks Uncoded 03/24/24 18:53 out General Stated Complaint: Abd Prob BRITTANY: 3 Review of Systems Narrative: see HPI Exam Const General: cooperative, healthy appearing, comfortable and no acute distress Nutritional Appearance: average body habitus HENMT Head: normal to inspection Ears: hearing grossly normal bilaterally Mouth: oral mucosa abnormal (dry) Resp Effort & Inspection: normal respiratory effort and able to speak in complete sentences Auscultation: clear to auscultation bilaterally Cardio Rate: regular rate Rhythm: abnormal rhythm irregularly irregular GI Inspection: normal to inspection and non-distended Palpation: soft and tender (RUQ > RLQ) Auscultation: normal bowel sounds Neuro General: patient alert, patient oriented x3, gait normal, tone normal, moves all extremities, no focal motor deficits and CN's II-XI intact bilaterally Speech: speech normal Course Vital Signs Vital signs: Vital Signs Temperature 36.1 C L 03/24/24 18:50 Pulse 82 03/24/24 18:50 Respiratory Rate 16 03/24/24 18:50 Blood Pressure 89/52 L 03/24/24 18:50 Pulse Oximetry 100 03/24/24 18:50 Temperature 36.1 C L 03/24/24 18:50 Pulse 82 03/24/24 18:50 Respiratory Rate 16 03/24/24 18:50 Blood Pressure 89/52 L 03/24/24 18:50 Pulse Oximetry 100 03/24/24 18:50 Pain Level 0 03/24/24 18:50 Medical Decision Making Quality:SDOH Health Related Social Needs: No Data to Display PFSH All Active Problems (Updated 03/24/24 @ 22:42 by Marnie Maloney) Nausea & vomiting (Acute) Colitis (Acute) Nausea & vomiting (Acute) Streptococcal bacteremia (Acute) CKD (chronic kidney disease) stage 3, GFR 30-59 ml/min (Chronic) Positive blood cultures (Acute) Gallbladder Problem (Acute) Scapular dyskinesis (Acute) Syncope (Chronic) Elevated bilirubin (Acute) Upper back pain on right side (Acute) Pain in right shoulder (Acute) Weakness (Acute) Abnormal findings on esophagogastroduodenoscopy (EGD) (Acute 09/16/18) EGD with Dr Olmedo, then followed by Dr Vallecillo, referred to [facility] [place] GI Chronic anticoagulation (Chronic) Back on Warfarin Jun 12, 2023 Tendinitis of right rotator cuff (Acute) Carpal tunnel syndrome of right wrist (Acute) Advanced care planning/counseling discussion (Acute) Rectal bleeding (Acute) Constipation (Acute) Medical History Renal insufficiency Paroxysmal atrial fibrillation Hyperlipidemia (04/07/13) Gout Family history of premature CAD (04/28/18) father with [place] at age 45 and was a heavy smoker. 2 smoking siblings with CAD in 60's. 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 [employer] Pets and animals: No Sexually active: No Do you think of yourself as: straight/heterosexual Current gender identity: female What is your relationship status?: How often do you talk on the phone with friends or family?: three or more times per week How often do you get together with friends or relatives?: three or more times per week How often do you attend druze or voodoo services?: decline to answer Do you belong to any clubs or organized social groups?: yes Panel score (0-1 are the most socially isolated patients): 3 What type of physical activity do you participate in: walking Duration: 30-45 minutes/day Frequency: 5-6 times per week Shannan/Episcopalian: No preference Special shannan needs: No Seatbelt use: always Helmet use: Yes Helmet use: always Drive intox or ride w/intox commercial collections driver: No Firearms in home: Yes Firearms unloaded and locked: Yes Do you feel safe at home: Yes Do you feel safe in your relationship?: Yes Would you like helpful sources: No
[2024-03-24 19:47] LABS: Abs Immature Grans 0.01 10^3/uL (0.0-0.06); Absolute Basophil Count 0.06 10^3/uL (0.0-0.2); Absolute Eosinophil Count 0.27 10^3/uL (0.0-0.7); Absolute Lymphocyte Count 2.18 10^3/uL (1.2-3.4); Absolute Monocyte Count 0.51 10^3/uL (0.1-0.8); Basophils % 0.8 %; Eosinophils % 3.7 %; HCT 41.7 % (36.0-46.0); HGB 13.7 g/dL (11.2-15.7); Immature Grans % 0.1 %; Lymphocytes % 29.7 %; MCHC 32.9 % (32.0-36.0); MCV 91 fL (80-95); MPV 9.8 fL (8.0-11.0); Neutrophils % 58.7 %; Platelet Count 276 10^3/uL (130-400); RBC 4.56 10^6/uL (3.93-5.22); RDW 13.6 % (11.7-14.6); RDW-SD 46.5 fL; WBC 7.33 10^3/uL (4.4-10.8)
[2024-03-24 19:58] LABS: INR 2.4 (0.9-1.1)
[2024-03-24 20:03] LABS: Magnesium 1.6 mg/dL (1.8-2.4)
[2024-03-24] MEDS: Lactated Ringers 1,000 ML 1000 ML IV (20:06)
[2024-03-24] MEDS: Normal Saline Flush 10 ML SYR IVP (20:06)
[2024-03-24 20:07] LABS: ALT 40 U/L (14-59); AST 27 U/L (15-37); Albumin 3.7 g/dL (3.4-5.0); Alkaline Phosphatase 96 U/L (46-116); Anion Gap 10.9 mmol/L (3-11); BUN 31 mg/dL (7-18); Bilirubin, Total 0.63 mg/dL (0.2-1.0); CO2 26.1 mmol/L (21.0-32.0); CREATININE 1.6 mg/dL (0.55-1.02); Calcium 9.3 mg/dL (8.5-10.1); Chloride 102 mmol/L (98-107); Estimated GFR 32.81 (mL/min/1.73m2); Glucose 105 mg/dL (74-106); Potassium 3.8 mmol/L (3.5-5.1); Sodium 139 mmol/L (136-145); Total Protein 7.7 g/dL (6.4-8.2)
[2024-03-24 20:11] LABS: Troponin I < 50 ng/L (< or =60)
[2024-03-24] MEDS: Normal Saline - Diluent 50 ML VIAL IJ (20:28)
[2024-03-24] MEDS: Omnipaque 350 MG/ML 100 ML BTL IJ (20:29)
--- NOTE | 2024-03-24 21:02 | DI.VRAD_ITS ---
PROCEDURE INFORMATION: Exam: XR Chest Exam date and time: 03/24/2024 20:21 Age: 78 years old Clinical indication: Other: Dizziness TECHNIQUE: Imaging protocol: Radiologic exam of the chest. Views: 2 views. COMPARISON: CT CHEST/ABD/PEL W 03/02/2024 10:28 FINDINGS: Lungs: No consolidation. Pleural spaces: No pleural effusion. No pneumothorax. Heart/Mediastinum: No cardiomegaly. Bones/joints: Chronic appearing osteolysis of the left distal clavicle. No displaced fracture. IMPRESSION: No acute cardiopulmonary pathology. Dictated and Authenticated by: Angella Maurer MD. Ordering:LITZY Dye MD
--- NOTE | 2024-03-24 21:04 | DI.VRAD_ITS ---
PROCEDURE INFORMATION: Exam: CT Abdomen And Pelvis With Contrast Exam date and time: 03/24/2024 20:29 Age: 78 years old Clinical indication: Other: R sided abd pain w/n/v TECHNIQUE: Imaging protocol: Computed tomography of the abdomen and pelvis with contrast. Contrast material: OMNI 350; Contrast volume: 100 ml; Contrast route: INTRAVENOUS (IV); COMPARISON: MR ABDOMEN WO 03/09/2024 16:29 FINDINGS: Liver: Is Focal fat in the liver near the fissure for the ligamentum teres. No hepatic masses. No hepatic masses. Gallbladder and biliary ducts: Dependent gallbladder material favoring sludge or noncalcified stones. No gallbladder wall thickening. No significant biliary dilation or radiopaque stones in the biliary tree. Pancreas: No ductal dilation. No mass . Spleen: No splenomegaly or suspicious lesions. Adrenal glands: No suspicious mass. Kidneys and ureters: No hydronephrosis. No masses. Stomach and bowel: Submucosal fat deposition in the colon, likely habitus and or diet related. No focal pathology in the small bowel. Appendix: No evidence of appendicitis. Intraperitoneal space: No free air. No significant fluid collection. Vasculature: No abdominal aortic aneurysm. Lymph nodes: No significantly enlarged lymph nodes. Urinary bladder: Bladder mostly decompressed, no definite wall thickening. Reproductive: Hysterectomy. Bones/joints: Chronic bony changes with no acute fracture. Soft tissues: No suspicious lesions. Other findings: Mild wall thickening of distal sigmoid colon and rectum. IMPRESSION: 1. Mild distal sigmoid colitis and mild proctitis. 2. Incidental findings as described. Dictated and Authenticated by: Angella Maurer MD. Ordering:LITZY Dye MD
[2024-03-24] MEDS: Magnesium Oxide 400 MG TAB PO (21:19)
[2024-03-24 22:30] LABS: Bilirubin Negative (Negative); Blood Negative (Negative); Clarity Clear (Clear); Glucose Negative (Negative); Ketones Negative (Negative); Leukocyte Esterase Negative (Negative); Nitrite Negative (Negative); Specific Gravity <= 1.005 (1.005-1.025); Urobilinogen 0.2 mg/dL (Up to 0.2)
[2024-03-24] MEDS: Ciprofloxacin 500 MG TAB PO (22:43)
[2024-03-24] MEDS: metroNIDAZOLE 500 MG TAB PO (22:43)
[2024-03-24 22:45] LABS: Lactate 2.1 mmol/L (0.6-1.4)
[2024-03-24 23:01] LABS: Troponin I < 50 ng/L (< or =60)
[2024-03-24] MEDS: Normal Saline 1,000 ML 1000 ML IV (23:40)
[2024-03-25] VITALS (53 sets, daily range): BP systolic 98–154; BP diastolic 47–78; PULSE 51–102; RESP 9–26; O2SAT 91–99
--- NOTE | 2024-03-25 00:38 | W.EDPROG ---
Date of service: 03/25/24 Time of Service: 00:38 Medical Decision Making This patient was signed out to me. Please see previous notes for H&P and initial eval. In brief, 78yo F presented with N/V and lightheadedness. Workup overal reassuring, troponins negative, EKG afib (known), CT showed colitis. Given IVF and zofran. Initial lactate 2.0, 2nd lactate unchanged. Signed out with plan for 1L IVFB and repeat lactate; if reassuring plan to discharge home on antibiotics for colitis. Presumptive discharge instructions pended. Repeat lactate 1.2. On reassessment patient is well appearing with reassuring vital signs, reports feeling much better. Would like to go home. Discharged home; discharge instructions and return precautions were reviewed wtih patient who verbalized understanding. All questions were answered and she is in full agreement with the plan. Lab Data Lab results reviewed: Yes I reviewed the patient's lab results. Labs: Laboratory Tests Range/Units 03/24/24 03/24/24 03/24/24 02:20 19:40 20:03 WBC (4.4-10.8) 10^3/uL 7.33 RBC (3.93-5.22) 10^6/uL 4.56 Hgb (11.2-15.7) g/dL 13.7 Hct (36.0-46.0) % 41.7 MCV (80-95) fL 91 MCH (27.0-33.0) pg 30.0 MCHC (32.0-36.0) % 32.9 RDW (11.7-14.6) % 13.6 Plt Count (130-400) 10^3/uL 276 MPV (8.0-11.0) fL 9.8 Immature Gran % % 0.1 Neutrophils % % 58.7 Lymphocytes % % 29.7 Monocytes % % 7.0 Eosinophils % % 3.7 Basophils % % 0.8 Nucleated RBC % (0.0-0.3) % 0.0 Absolute Neutrophils (1.2-6.7) 10^3/uL 4.30 Absolute Lymphocytes (1.2-3.4) 10^3/uL 2.18 Absolute Monocytes (0.1-0.8) 10^3/uL 0.51 Absolute Eosinophils (0.0-0.7) 10^3/uL 0.27 Absolute Basophils (0.0-0.2) 10^3/uL 0.06 PT (9.1-11.1) sec 22.0 H INR (0.9-1.1) 2.4 H VBG Lactate (0.6-1.4) mmol/L Sodium (136-145) mmol/L 139 Potassium (3.5-5.1) mmol/L 3.8 Chloride (98-107) mmol/L 102 Carbon Dioxide (21.0-32.0) mmol/L 26.1 Anion Gap (3-11) mmol/L 10.9 BUN (7-18) mg/dL 31 H Creatinine (0.55-1.02) mg/dL 1.6 H Est GFR (CKD-EPI 2020) (mL/min/1.73m2) 32.81 Glucose (74-106) mg/dL 105 Calcium (8.5-10.1) mg/dL 9.3 Magnesium (1.8-2.4) mg/dL 1.6 L Total Bilirubin (0.2-1.0) mg/dL 0.63 AST (15-37) U/L 27 ALT (14-59) U/L 40 Alkaline Phosphatase (46-116) U/L 96 Troponin I (< or =60) ng/L < 50 Total Protein (6.4-8.2) g/dL 7.7 Albumin (3.4-5.0) g/dL 3.7 Urine Color (Yellow) Yellow Urine Clarity (Clear) Clear Urine pH (5-8) 5.0 Ur Specific [place] (1.005-1.025) <= 1.005 Urine Protein (Neg-Trace) mg/dL Negative Urine Ketones (Negative) mg/dL Negative Urine Blood (Negative) Negative Urine Nitrite (Negative) Negative Urine Bilirubin (Negative) Negative Urine Urobilinogen (Up to 0.2) mg/dL 0.2 Ur Leukocyte Esterase (Negative) Negative Urine Glucose (Negative) mg/dL Negative Add-On Test Request TNP Range/Units 03/24/24 03/24/24 03/25/24 20:19 22:36 01:32 WBC (4.4-10.8) 10^3/uL RBC (3.93-5.22) 10^6/uL Hgb (11.2-15.7) g/dL Hct (36.0-46.0) % MCV (80-95) fL MCH (27.0-33.0) pg MCHC (32.0-36.0) % RDW (11.7-14.6) % Plt Count (130-400) 10^3/uL MPV (8.0-11.0) fL Immature Gran % % Neutrophils % % Lymphocytes % % Monocytes % % Eosinophils % % Basophils % % Nucleated RBC % (0.0-0.3) % Absolute Neutrophils (1.2-6.7) 10^3/uL Absolute Lymphocytes (1.2-3.4) 10^3/uL Absolute Monocytes (0.1-0.8) 10^3/uL Absolute Eosinophils (0.0-0.7) 10^3/uL Absolute Basophils (0.0-0.2) 10^3/uL PT (9.1-11.1) sec INR (0.9-1.1) VBG Lactate (0.6-1.4) mmol/L 2.0 H 2.1 H 1.2 Sodium (136-145) mmol/L Potassium (3.5-5.1) mmol/L Chloride (98-107) mmol/L Carbon Dioxide (21.0-32.0) mmol/L Anion Gap (3-11) mmol/L BUN (7-18) mg/dL Creatinine (0.55-1.02) mg/dL Est GFR (CKD-EPI 2020) (mL/min/1.73m2) Glucose (74-106) mg/dL Calcium (8.5-10.1) mg/dL Magnesium (1.8-2.4) mg/dL Total Bilirubin (0.2-1.0) mg/dL AST (15-37) U/L ALT (14-59) U/L Alkaline Phosphatase (46-116) U/L Troponin I (< or =60) ng/L < 50 Total Protein (6.4-8.2) g/dL Albumin (3.4-5.0) g/dL Urine Color (Yellow) Urine Clarity (Clear) Urine pH (5-8) Ur Specific [place] (1.005-1.025) Urine Protein (Neg-Trace) mg/dL Urine Ketones (Negative) mg/dL Urine Blood (Negative) Urine Nitrite (Negative) Urine Bilirubin (Negative) Urine Urobilinogen (Up to 0.2) mg/dL Ur Leukocyte Esterase (Negative) Urine Glucose (Negative) mg/dL Add-On Test Request Quality:[facility] Health Related Social Needs: No Data to Display Sign Out Sign Out Data: Sign Out Comment: 78-year-old female presented today after persistent nausea/vomiting after being diagnosed with gallstones. Creatinine elevated today, 1.6. Lactate was elevated 2.0, followed by 2.1. CT scan remarkable for colitis; will treat with metronidazole and Cipro. Patient receiving second liter of fluids with repeat lactate to be drawn. Strongly advised close follow-up with PCP for INR rechecks and pushing fluids to help improve kidney function. Last updated by Marnie Dee at 03/25/24 00:29 Discharge Plan Disposition Patient Disposition: Home Condition: Stable Discharge Details Clinical Impression: Colitis, Nausea & vomiting Primary Care Provider: Joaquin Moss ED Provider: Moriah Jackson Home Meds and New Rx's Prescriptions: New metronidazole 500 mg tablet 500 mg PO BID Qty: 14 0RF ciprofloxacin HCl 500 mg tablet 500 mg PO BID Qty: 14 0RF Continued lidocaine 4 % adhesive patch,medicated 1 patch topical DAILY PRN (Reason: pain) Qty: 30 0RF omeprazole 40 mg capsule,delayed release(DR/EC) 40 mg PO DAILY Qty: 90 4RF atorvastatin 40 mg tablet 40 mg PO HS Qty: 90 4RF diltiazem HCl [Cardizem CD] 120 mg capsule,extended release 24hr 120 mg PO DAILY Qty: 90 4RF lisinopril-hydrochlorothiazide 20-25 mg tablet 1 tab PO DAILY Qty: 90 3RF diclofenac sodium [Arthritis Pain (diclofenac)] 1 % gel 4 g topical QID Qty: 100 4RF Rx Instructions: apply to single knee, ankle, foot; for foot includes sole/toes/top of foot metformin 500 mg tablet 500 mg PO BID Qty: 180 3RF ondansetron 4 mg tablet,disintegrating 4 mg PO Q6H PRN (Reason: nausea and vomiting) Qty: 30 0RF hydrocortisone [Anusol-HC] 2.5 % cream with perineal applicator 1 applic [place] BID-QID PRN (Reason: hemorrhoids) Qty: 30 0RF warfarin 1 mg tablet 2 mg PO QPM Protocol: Dose Management Condition: Friday Dose/Route: 1.5 mg Instruction: 1.5 x 1 mg tablets Condition: Friday Dose/Route: 1.5 mg Instruction: 1.5 x 1 mg tablets Condition: Friday Dose/Route: 1.5 mg Instruction: 1.5 x 1 mg tablets Condition: Friday Dose/Route: 1.5 mg Instruction: 1.5 x 1 mg tablets Condition: Dose/Route: 1.5 mg Instruction: 1.5 x 1 mg tablets Condition: Friday Dose/Route: 1.5 mg Instruction: 1.5 x 1 mg tablets Condition: Friday Dose/Route: 1.5 mg Instruction: 1.5 x 1 mg tablets Protocol Text: Adjustment Start Date: Friday03/19/24 INR Value: 2.4 INR Date: 03/19/24 Recheck Date: 03/26/24 hydrochlorothiazide 25 mg Tablet 25 mg PO QAM Qty: 90 0RF acetaminophen 500 mg tablet 500 mg PO Q6H PRN PRN (Reason: pain) Qty: 60 3RF Discharge Instructions Instructions: Colitis (DC) Additional Instructions: Please call [facility] first thing in the morning to schedule follow-up appointment. It is very important that you have your INR rechecked, as her antibiotics will interact with your warfarin's effectiveness. You are being prescribed antibiotics to help treat the colitis. Take as prescribed. Please drink plenty of fluids throughout the day, being sure to drink whether or not you are thirsty. Broths, popsicles, sodas, water, Gatorade/Pedialyte are all good options. Eat gentle foods as tolerated. You may use the Zofran as needed for persistent nausea/vomiting. Return to emergency care if you develop severe abdominal pain, uncontrollable vomiting, decreased urine output, fevers, or if you are very worried and need to be rechecked again immediately Referrals: Joaquin Moss NP [Primary Care Provider] -
[2024-03-25 01:39] LABS: Lactate 1.2 mmol/L (0.6-1.4)
--- NOTE | 2024-03-25 11:02 | ED.FU.B_ITS ---
Date of service: 03/25/24 Time of Service: 11:02 Follow Up Plan: I received a call from [facility] pharmacy concerning this patient who was seen in the emergency department yesterday & diagnosed with colitis. She had presented with several days of nausea and vomiting unable to tolerate fluids. Her CT scan was notable for mild rectosigmoid colitis. She was also found to have question of gallbladder sludge versus tiny cholelithiasis. She had a mildly elevated lactate at 2.0. She received 1 L of IV fluids and her repeat lactate improved to 1.2. On reassessment she was reportedly well-appearing with reassuring vitals and feeling markedly improved. She was sent home with prescriptions for metronidazole and ciprofloxacin given concern for colitis. Pharmacy was concerned about the interaction with the patient's warfarin and the ciprofloxacin and metronidazole. Of note patient had been seen in the emergency department on March 09 when her INR was 6.6. Her INR subsequently normalized however I was concerned that antibiotics would worsen her labile INR. Given that she had no fevers improved abdominal pain and no significant leukocytosis and only mild colitis I elected to discontinue her oral antibiotics. I spoke to patient on the phone. She reported that her pain had improved. She was tolerat ing p.o. at home. I advised ED return for worsening abdominal pain fevers or inability to tolerate p.o. She understood her return indications. I called the [facility] pharmacy and canceled her oral antibiotics.
== END 2024-03-25 06:14 | disposition home or self-care (01) ==
PROVIDERS: Nurse Practitioner Family; Emergency Provider Student in an Organized Health Care Education/Training Program; PCP Nurse Practitioner Family
DX: K52.9 Noninfective gastroenteritis and colitis, unspecified (principal); R11.2 Nausea with vomiting, unspecified; I12.9 Hypertensive chronic kidney disease with stage 1 through stage 4 chronic kidney disease, or unspecified chronic kidney disease; E11.22 Type 2 diabetes mellitus with diabetic chronic kidney disease; N18.30 Chronic kidney disease, stage 3 unspecified; E78.5 Hyperlipidemia, unspecified; I48.0 Paroxysmal atrial fibrillation; Z79.01 Long term (current) use of anticoagulants; Z79.84 Long term (current) use of oral hypoglycemic drugs; Z90.710 Acquired absence of both cervix and uterus
CPT/HCPCS: 00123; 80053; 93005; 96360; 96361; 99285; 71046; 74177; 81003; 83605; 83735; 84484; 85025; 85610; 93010; 99284; J3490

== ENCOUNTER → 2024-03-29 12:41 | Outpatient (BNVA) | payer OTHER, SELFPAY | PROVIDERS: PCP Nurse Practitioner Family; Referring Provider Nurse Practitioner Family; Visit Provider Surgery | DX: K82.9 Disease of gallbladder, unspecified (principal); R11.14 Bilious vomiting; K80.20 Calculus of gallbladder without cholecystitis without obstruction | CPT/HCPCS: 99215 ==

== ENCOUNTER → 2024-04-01 01:50 | Outpatient (CLI) | payer OTHER, SELFPAY ==
--- NOTE | 2024-04-01 07:45 | DI.US_ITS ---
APPROVED REPORT EXAM: Comprehensive 2D, Doppler, and color-flow Echocardiogram Patient Location: Out-Patient Building Mechanic: Augustina Dean RDCS (AE) Indications: Pre operative exam , Syncope, Hypertension, A Fib Other Information Study Quality: Adequate Conclusion Normal left ventricular wall thickness and chamber size. Ejection fraction is 60%. Wall motion is n ormal Normal right ventricular size and function Both atria are normal in size Trileaflet aortic valve with trace regurgitation and Normal mitral valve with trace regurgitation Normal tricuspid valve with mild regurgitation. Estimated right ventricular systolic pressure is 30 mmHg Ascending aorta measures 3.66 cm Wall motion Left Ventricle The left ventricle is normal size. The left ventricular systolic function is normal. The left ventric ular ejection fraction is within the normal range. There is normal left ventricular wall thickness. T here is normal LV segmental wall motion. There is no ventricular septal defect visualized. LVEF is 60 %. Right Ventricle The right ventricle is normal size. The right ventricular systolic function is normal. Atria The left atrium size is normal. The right atrium size is normal. The interatrial septum is intact wit h no evidence for an atrial septal defect. Aortic Valve The aortic valve is normal in structure. Aortic valve is trileaflet. There is no aortic valvular sten osis. Trace aortic regurgitation. Mitral Valve The mitral valve is normal in structure. No evidence of mitral valve stenosis. Trace mitral regurgita tion. Tricuspid Valve The tricuspid valve is normal in structure. There is no tricuspid valve stenosis. Mild tricuspid regu rgitation. The RVSP is 30.4_ mmHg. Pulmonic Valve The pulmonary valve is normal in structure. There is no pulmonic valvular stenosis. Trace pulmonic re gurgitation. Great Vessels The aortic root is normal in size. The ascending aorta is mildly dilated. Aortic arch is not well vis ualized. IVC is normal in size and collapses >50% with inspiration. Pericardium There is no pericardial effusion. 2D Dimensions IVSD d PLAX 1.00 cm F: 0.6-1.0 Ao Root d 2.57 cm F: 2.7 - 3.3 LVPW d PLAX 1.00 cm F: 0.6 - 1.0 Ao Asc Diam d 3.66 cm F: 2.3 - 3.1 LVID d PLAX 4.00 cm F: 3.8 - 5.2 LVDs 2.72 cm F: 2.2 - 3.5 LV EF Teichholz 59.8 % FS 31.32 % LV EDV (Teich) 68.4 mL LV ESV (Teich) 27.5 mL Auto EF LV EDV A4C 62.7 mL LV EDV A2C 67.5 mL LV EDV BP 66.2 mL LV ESV A4C 25.9 mL LV ESV A2C 28.3 mL LV ESV BP 26.6 mL LVEF(%) A4C 58.7 % LVEF(%) A2C 58.1 % LVEF(%) BP 59.9 % LV SV A4C 36.8 ml LV SV A2C 39.2 ml LV SV BP 39.7 ml LV CO A4C 2.1 L/min LV CO A2C 2.3 L/min LV CO BP 2.2 L/min HR A4C 57.97 BPM HR A2C 58.33 BPM LV EDV Index (BP) LA Volume LA Length A4C 5.3 cm LA Length A2C 5.1 cm LA Area A4C s 17.23 cm2 LA Area A2C s 17.05 cm2 LA Vol A4C A-L 47.82 mL LA Vol A2C A-L 48.62 mL LA Vol Biplane A-L 49.1 mL LA Vol/BSA A4C A-L LA Vol/BSA A2C A-L LA Vol/BSA BP A-L 32.5 mL/m2 LA Vol A4C MOD 44.0 mL LA Vol A2C MOD 46.0 mL LA Vol BP MOD 45.6 mL RA Volume RA Area A4C 10.2 cm2 RA ESV A4C (A-L) 19.9mL RA Vol/BSA A4C A-L RA Length A4C 4.4 cm RA ESV A4C (MOD) 19.0mL LV Diastology MV E Vmax 0.74 (0.4-1.3 m/s) MV A Vmax 0.80 (0.4-1.3 m/s) E/A Ratio 0.9 Aortic Valve AoV Vmax 1.84 m/s LVOT Vmax 1.24 m/s AoV Peak Grad 36.1 mmHg LVOT Peak Grad 6.1 mmHg AoV Area (Vmax) 1.64 cm2 LVOT VTI 0.270 m AoV VTI 0.426 m LVOT Mean Grad 2.9 mmHg AoV Mean Josep. 1.26 m/s LVOT SV 65.60 mL AoV Mean Grad 7.2 mmHg LVOT Diam s 1.75 cm AoV Area (VTI) 1.54 cm2 AV Regurg Peak Gr. 58.65 mmHg Velocity Ratio 0.67 AR Decel [place] 1.6m/sec2 AR DT 2422 msec AR PHT 702 msec AR Vmax 3.83 m/s Mitral Valve MV DT 214 (160-240 msec) MV Vmax TIPS 0.88 m/s MV Mean Grad 1.3 (<2mmHg) MV VTI 0.335 m Pulmonary Valve RVOT Vmax 0.73 m/s RVOT Peak Gr. 2.1 mmHg RVOT VTI 0.188 m RVOT Mean Gr. 1.4 mmHg Tricuspid Valve RA Pressure 3.00 mmHg TR Vmax 2.62 m/s TR Peak Grad 27.3 mmHg RVSP (TR) 30.4 mmHg
== END ==
PROVIDERS: PCP Nurse Practitioner Family; Visit Provider Surgery
DX: R55 Syncope and collapse (principal); Z79.01 Long term (current) use of anticoagulants; R11.14 Bilious vomiting; K80.20 Calculus of gallbladder without cholecystitis without obstruction; N18.32 Chronic kidney disease, stage 3b; R78.81 Bacteremia; B95.5 Unspecified streptococcus as the cause of diseases classified elsewhere; I10 Essential (primary) hypertension; I48.0 Paroxysmal atrial fibrillation; E78.2 Mixed hyperlipidemia; E11.22 Type 2 diabetes mellitus with diabetic chronic kidney disease; M10.9 Gout, unspecified
CPT/HCPCS: 93306

== ENCOUNTER 2024-04-06 14:49 | Observation (INO) | payer OTHER, SELFPAY ==
--- NOTE | 2024-04-05 21:00 | W.PM.OP ---
Date of service: 04/06/24 Time of Service: 12:08 Operative Note Operative Note PRE-OP DIAGNOSIS: acute on chronic cholecystitis POST-OP DIAGNOSIS: same PROCEDURE: lap samuel SURGEON: Estrella Trivedi PHOTOGRAPHER MOTION PICTURE: Brisa Reardon ANESTHESIA TYPE: Local By Surgeon and General LMA/ETT Refer to Anesthesia Record PATHOLOGY: other COMPLICATIONS: None Patient was transported to: PACU Patient's condition: stable Procedure Description: INDICATIONS: The pt is seen at the request of there PCP regarding acute on chronic cholecystitis, cholelithiasis. The pt has failed outpt conservative medical measures and is here today for laparoscopic cholecystectomy. Informed consent was obtained, explaining risks and benefits of the procedure including but not limited to bleeding, infection, pneumonia, blood clots, possible damage to bowel, bladder, blood vessels, bile ducts, possible open procedure, complications of general anesthesia and other unforetold complications. PROCEDURE: The patient agrees and is brought to the operative room suite and placed in supine position. Pt receives IV ICG preOp to aid w/ bile duct visualization.? Anesthesia was administered per the Department of Anesthesia. The patient did receive IV antibiotics. NG tube and Godinez catheter are placed. The patient was prepped and draped in the usual sterile fashion using DuraPrep scrub solution. Pause for the cause was done. 20 mL of 1% buffered lidocaine was used for local anesthetization. A stab incision was made in the umbilicus and the Verres inserted. Drop test was positive and insufflation was begun. When 15 mm of pressure was noted on the monitor, the Veress was removed and #10 port inserted. The camera was inserted through the port and shows no damage to underlying structures. A 5 mm port was then placed in the epigastric position under direct visualization following creation of local field blocks as well as one 5 mm ports in the right upper quadrant. The camera was moved to one of the secondary ports so we could view the umbilical trocar site, and there is are no hernias or adhesions. Visualization of the liver revealed that there are dense adhesions from the liver up to the anterior abdominal wall. These are actually tethering of the liver up quite significantly. I am able to use this derangement and her anatomy to our advantage for visualization we do not have to place a right lateral port. The gallbladder is quite large and floppy. There is some chronic edema and erythema noted. The hepat-duodenal ligament is entered. The cystic duct and artery are dissected out and the most inferior portion of the gallbladder plate is removed from the liver and the critical view of safety was obtained after clearing away all fatty material. Endo Clips were placed across the duct and artery and these structures are divided. The remainder of the gallbladder was excised from the liver bed. The gallbladder was placed in a bag and brought out. Examination of the gallbladder shows indeed the cystic duct and artery to have been divided. The remainder of the abdomen was copiously irrigated with a liter of saline. All saline is removed. There is no bleeding or bile leakage from the liver bed or the clips sites. 30 minutes is then taken to placed the adhesions from the liver into the anterior abdominal wall and the right colon into the anterior abdominal wall. This is done with a combination of sharp dissection and cautery. All ports and instruments are removed. SPonge and needle counts are correct. Pneumoperitoneum is evacuated and the port sites are monitored to make sure there is no bleeding at the time of desufflation. ?The fascia under the 10 mm umbilical port site is closed with 0 Vicryl. ?Port sites are irrigated and the skin is closed with 4-0 Monocryl in a running subcuticular fashion. Skin glue sterile dressings are applied. The patient tolerated the procedure well without complications, transferred to the recovery room in stable condition. ESTRELLA TRIVEDI, DO
--- NOTE | 2024-04-05 21:05 | W.PM.DSUDISC ---
Date of service: 04/06/24 Time of Service: 12:30 Discharge Plan Disposition Patient Disposition: Home Condition: Good Discharge Details Reason For Visit: s/p lap samuel/vasovagel Admit Date/Time: 04/06/24 15:43 Admit Provider: Estrella Mendoza Attending Provider: Estrella Mendoza Primary Care Provider: Joaquin Moss Home Meds and New Rx's Prescriptions: New tramadol 50 mg tablet 50 mg PO Q6H PRNQty: 14 0RF ondansetron 4 mg tablet,disintegrating 4 mg PO Q6H PRN (Reason: nausea and vomiting) Qty: 10 0RF Continued lidocaine 4 % adhesive patch,medicated 1 patch topical DAILY PRN (Reason: pain) Qty: 30 0RF omeprazole 40 mg capsule,delayed release(DR/EC) 40 mg PO DAILY Qty: 90 4RF atorvastatin 40 mg tablet 40 mg PO HS Qty: 90 4RF diltiazem HCl [Cardizem CD] 120 mg capsule,extended release 24hr 120 mg PO DAILY Qty: 90 4RF lisinopril-hydrochlorothiazide 20-25 mg tablet 1 tab PO DAILY Qty: 90 3RF diclofenac sodium [Arthritis Pain (diclofenac)] 1 % gel 4 g topical QID Qty: 100 4RF Rx Instructions: apply to single knee, ankle, foot; for foot includes sole/toes/top of foot metformin 500 mg tablet 500 mg PO BID Qty: 180 3RF levofloxacin 500 mg tablet 500 mg PO DAILY Qty: 14 2RF ondansetron 4 mg tablet,disintegrating 4 mg PO Q6H PRN (Reason: nausea and vomiting) Qty: 30 0RF hydrocortisone [Anusol-HC] 2.5 % cream with perineal applicator 1 applic MN BID-QID PRN (Reason: hemorrhoids) Qty: 30 0RF hydrochlorothiazide 25 mg Tablet 25 mg PO QAM Qty: 90 0RF acetaminophen 500 mg tablet 500 mg PO Q6H PRN PRN (Reason: pain) Qty: 60 3RF Held warfarin 1 mg tablet 2 mg PO QPM Hold Instructions: Resume on 04/12/24. Protocol: Dose Management Condition: Friday Dose/Route: 2 mg Instruction: 2 x 1 mg tablets Condition: Friday Dose/Route: 2 mg Instruction: 2 x 1 mg tablets Condition: Friday Dose/Route: 1 mg Instruction: 1 x 1 mg tablet Condition: Friday Dose/Route: 2 mg Instruction: 2 x 1 mg tablets Condition: Dose/Route: 1 mg Instruction: 1 x 1 mg tablet Condition: Friday Dose/Route: 2 mg Instruction: 2 x 1 mg tablets Condition: Friday Dose/Route: 1 mg Instruction: 1 x 1 mg tablet Protocol Text: Adjustment Start Date: 03/25/24 INR Value: 1.7 INR Date: 03/25/24 Recheck Date: 04/01/24 Discharge Instructions Additional Instructions: Care after Gallbladder Surgery -Pain control: ?For the first 72 hours after surgery, take your pain meds continuously, and not just when you have pain.?? Alternate Tylenol 1000mg by mouth every 8 hours, and Ibuprofen 600mg every 6 hours.? Make sure you take ibuprofen with food and not on an empty stomach.? ??Use the tramadol for breakthrough pain- pain that is greater than a 7. ?- Use ICE! Ice really helps to keep the swelling down, and swelling causes pain. ??Twenty minutes on, and then off, continuously for the first 72hours.? After the first 72hrs, you can just use the Tylenol, ibuprofen or Celebrex, and ice, when you have pain.?? If you are taking narcotic pain medication, follow the instructions on the label and do not drive. Pain medications can make you very constipated. Make sure you are moving your bowels daily. If not, take Miralax. - Anesthesia makes you very constipated.? Take a dose of Miralax the morning after surgery. ? Use an ice bag for the first 72 hours. This helps to decrease swelling, which causes pain. It is normal to be more sore/painful and swollen towards the end of the day and first thing in the morning. ? Gallbladder surgery can make you very nauseated; use Zofran for nausea, for the first 24 hours. The nausea generally stops after 24 hours. ? Use Miralax or prune juice to prevent constipation (this is a particular side effect of pain medication and anesthesia). Do not allow yourself to become constipated. ? Avoid fatty or greasy foods; introduce these slowly, with care, after about 1 month. High-fat foods include: ? Foods that are fried, like [place] fries and potato chips ? High-fat meats, such as [place], bologna, sausage, ground beef, and ribs, pork products ? High-fat dairy products, such as cheese, ice cream, cream, whole milk, and sour cream ? Pizza ? Foods made with lard or butter ? Creamy soups or sauces ? Meat gravies ? Chocolate ? Oils, such as palm and coconut oil ? Skin of chicken or turkey ? Nuts and nut butters ? Avocadoes ? Start out eating very small, bland amounts of food. Do not take pain pills on an empty stomach. - You will notice purple discoloration around the incisions.? This is the ?skin glue?.? This will wear off on its own.? It is OK to shower after 24hrs.? You do not need to cover the incisions. -You should walk frequently, gradually, increasing the distance. You may climb stairs, just go slowly. ? Do not go swimming or sit in a hot tub for two weeks. ? There are no stitches to remove. ? Do not drive your car x72hrs and then only if you have no pain and can move freely. Do not drive if you are taking pain narcotic pain medications. ? You may resume sexual activity whenever pain and soreness subside, usually in 2 weeks. ? Do no lift anything over 5 lbs. for two weeks. ? You may return to work in one week, or when you feel able, provided you do not have to do any heavy lifting or prolonged standing. ? You should return to Dr. Mendoza?s office for a post-op appointment about two weeks after surgery. A follow-up should have been scheduled for you already.? If there is not, please call the [facility] at: [phone] to schedule an appointment. -hold coumadin until 04/13. Resume coumadin on 04/14, with the same coumadin protocol. Contact your PCP to schedule INR check on or after 04/19. My Medications for pain and nausea are: Tylenol/ibuprofen ?and ultram- for severe pain ?and Zofran-nausea When to Call the Office: ? If the incision becomes red or swollen, or there is more than a little drainage from it. ? If you develop a temperature higher than 100.5 F. ? If your eyes turn yellow ? Vomiting and can?t keep fluids down Stand Alone Forms: Anesthesia Discharge InstLinda Robert (DSU) Activity:: see above Equipment/Supplies:: No Equipment Needed Diet:: low fat DS: Diagnosis Discharge Diagnosis (1) Chronic anticoagulation: Status: Chronic (2) Gallstones: Status: Deleted Asessment and Plan: The patient is doing well post-op from their lap samuel.? They are having no nausea or vomiting. They are tolerating liquids and a snack. The pt is not having any chest pain or SOB.? Their pain is adequately controlled. They have been able to urinate.? ?HEENT:? no eye pain/drainage/redness/swelling. Mild sore throat ?Cardio- NSR, no chest pain, BP stable- see VS record ?Pulm: no sob or productive cough. No hemoptysis ?Incision- dressing is c/d/i w/ no excessive bleeding or drainage ?I discussed with the patient the findings at the time of surgery and the patient?s progress. ?We reviewed expectations at home; what the patient could expect for recovery time, and in the post-operative period.? We discussed the importance of walking to avoid blood clots and pneumonia.? We discussed and reviewed the patient's post-operative wound care and dressing needs.?? We reviewed their step-chow pain management plan, Rx called to the pharmacy of their choice.? We reviewed activity and limitations-see discharge instructions. We reviewed warning signs, and when to seek medical attention- see d/c instructions.?? Patient was given a postoperative follow-up appointment. Patient verbalized understanding of their postoperative instructions, how do to take care of themselves and their incision, and the pain management plan. Please see discharge instructions.? (3) CKD (chronic kidney disease) stage 3, GFR 30-59 ml/min: Status: Chronic (4) Paroxysmal atrial fibrillation: (5) Hyperlipidemia: (6) Diabetes: (7) Renal insufficiency: (8) Adenocarcinoma of endometrium: (9) Gout:
[2024-04-06] VITALS (19 sets, daily range): BP systolic 123–180; BP diastolic 49–81; PULSE 48–67; RESP 12–19; TEMP 36–36.9; O2SAT 97–99; BMI 25.3
--- NOTE | 2024-04-06 08:43 | W.ANESPRE ---
General Info Date of Service Date Performed: 04/06/24 Height: 4 ft 11 in Weight: 56.869 kg Body Mass Index (BMI): 25.3 Surgical Procedure: Operation Date: 04/06/24 10:25 Proposed Procedure Side Surgeon p Cholecystectomy Laparoscopic Possible Open Estrella Mendoza, Meds Allergies and Home Medications Allergies Allergy/AdvReac Type Severity Reaction Status Date / Time Penicillins AdvReac Intermediate Rash Verified 04/06/24 08:45 bandaids AdvReac Mild breaks Uncoded 04/06/24 08:45 out Home Medication ?Medication ?Instructions ?Recorded acetaminophen 500 mg tablet 500 mg PO Q6H PRN PRN pain #60 tabs 05/19/19 hydrocortisone 2.5 % topical cream 1 applic [place] BID-QID PRN 03/01/23 with perineal applicator hemorrhoids #30 grams (Anusol-HC) lidocaine 4 % topical patch 1 patch topical DAILY PRN pain #30 07/08/23 ea atorvastatin 40 mg tablet 40 mg PO HS #90 tabs 12/11/23 diclofenac sodium 1 % topical gel 4 g topical QID #100 grams 12/11/23 (Arthritis Pain (diclofenac)) diltiazem HCl 120 mg 120 mg PO DAILY #90 caps 12/11/23 capsule,extended release 24 hr (Cardizem CD) lisinopril 20 1 tab PO DAILY #90 tabs 12/11/23 mg-hydrochlorothiazide 25 mg tablet metformin 500 mg tablet 500 mg PO BID #180 tabs 12/11/23 omeprazole 40 mg capsule,delayed 40 mg PO DAILY #90 caps 12/11/23 release warfarin 1 mg tablet 2 mg PO QPM 03/04/24 hydrochlorothiazide 25 mg tablet 25 mg PO QAM #90 tabs 03/05/24 ondansetron 4 mg disintegrating 4 mg PO Q6H PRN nausea and 03/09/24 tablet vomiting #30 tabs levofloxacin 500 mg tablet 500 mg PO DAILY #14 tabs 03/29/24 ondansetron 4 mg disintegrating 4 mg PO Q6H PRN nausea and 04/05/24 tablet vomiting #10 tabs tramadol 50 mg tablet 50 mg PO Q6H PRN #14 tabs 04/05/24 Current Visit Medications: Current Medications Generic Name Dose Route Start Last Admin Trade Name Freq PRN Reason Stop Dose Admin Acetaminophen 1,000 mg 04/06/24 05:00 Acetaminophen 500 Mg Tab PO 04/06/24 16:00 PREOP [facility] Gabapentin 600 mg 04/06/24 05:00 Gabapentin 300 Mg Cap PO 04/06/24 16:00 PREOP [facility] Ertapenem/Sodium Chloride 1 gm 50 mls @ 100 mls/hr 04/06/24 05:00 / Sodium Chloride IVPB 04/06/24 16:00 PREOP [facility] Ringer's Solution 1,000 mls @ 80 mls/hr 04/06/24 06:00 IV 05/05/24 23:59 INFUSION [facility] IV Miscellaneous Supplies 1 each 04/06/24 06:00 Iv Access IV 05/05/24 23:59 DIRECTED [facility] Indocyanine Green 5 mg 04/06/24 05:00 Indocyanine Green 25 Mg Vial IVP 04/06/24 16:00 DIRECTED [facility] Sodium Chloride 0 ml 04/06/24 06:00 Normal Saline Flush 10 Ml Syr IV 05/05/24 23:59 PRN PRN Sodium Chloride 0 ml 04/06/24 06:00 Normal Saline 10 Ml Vial IJ 05/05/24 23:59 DIRECTED PRN Sterile Water 0 ml 04/06/24 06:00 Water,Injection,Sterile 10 Ml Vial IJ 05/05/24 23:59 DIRECTED PRN PFSH Active Problems Active Problems: Problem Status Onset Code Gallstones Acute K80.20 Nausea & vomiting Acute R11.2 Colitis Acute K52.9 Nausea & vomiting Acute R11.2 Streptococcal bacteremia Acute R78.81, B95.5 CKD (chronic kidney disease) stage 3, GFR 30-59 ml/min Chronic N18.30 Positive blood cultures Acute R78.81 Gallbladder Problem Acute K82.9 Scapular dyskinesis Acute G25.89 Syncope Chronic R55 Elevated bilirubin Acute R17 Upper back pain on right side Acute M54.9 Pain in right shoulder Acute M25.511 Weakness Acute R53.1 Microscopic hematuria Resolved 09/14/12 R31.29 Abnormal findings on esophagogastroduodenoscopy (EGD) Acute 09/16/18 R19.8 Chronic anticoagulation Chronic Z79.01 Tendinitis of right rotator cuff Acute M75.81 Carpal tunnel syndrome of right wrist Acute G56.01 Advanced care planning/counseling discussion Acute Z71.89 Rectal bleeding Acute K62.5 Constipation Acute K59.00 Medical History Medical History Renal insufficiency Paroxysmal atrial fibrillation Hyperlipidemia (04/07/13) Gout Family history of premature CAD (04/28/18) father with [place] at age 45 and was a heavy smoker. 2 smoking siblings with CAD in 60's. 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 Tobacco Smoking/Tobacco Use Status: Never Passive smoking exposure: Yes Second hand exposure: Yes Alcohol Alcohol Intake: never Substance Use Substance use: Never Substance use type: does not use Vital Signs and Lab Results Vital Signs Most Recent Vital Signs in EMR: Temp Pulse Resp BP Pulse Ox 36.4 C L 61 16 141/73 H 99 04/06/24 08:48 04/06/24 08:48 04/06/24 08:48 04/06/24 08:48 04/06/24 08:48 Point of Care Results Point of Care Results: Finger Stick Blood Glucose 134 04/06/24 08:42 Lab Results Blood Type / Crossmatch: No Data to Display Complete Blood Count: White Blood Count 7.33 10^3/uL (4.4-10.8) 03/24/24 19:40 Red Blood Count 4.56 10^6/uL (3.93-5.22) 03/24/24 19:40 Hemoglobin 13.7 g/dL (11.2-15.7) 03/24/24 19:40 Hematocrit 41.7 % (36.0-46.0) 03/24/24 19:40 Platelet Count 276 10^3/uL (130-400) 03/24/24 19:40 Venous Blood Lactate 1.2 mmol/L (0.6-1.4) 03/25/24 01:32 Complete Metabolic Panel: Sodium 139 mmol/L (136-145) 03/24/24 19:40 Potassium 3.8 mmol/L (3.5-5.1) 03/24/24 19:40 Chloride 102 mmol/L (98-107) 03/24/24 19:40 Carbon Dioxide 26.1 mmol/L (21.0-32.0) 03/24/24 19:40 BUN 31 mg/dL (7-18) H 03/24/24 19:40 Creatinine 1.6 mg/dL (0.55-1.02) H 03/24/24 19:40 Est GFR (CKD-EPI 2020) 32.81 (mL/min/1.73m2) 03/24/24 19:40 Magnesium 1.6 mg/dL (1.8-2.4) L 03/24/24 19:40 Calcium 9.3 mg/dL (8.5-10.1) 03/24/24 19:40 Albumin 3.7 g/dL (3.4-5.0) 03/24/24 19:40 Glucose 105 mg/dL (74-106) 03/24/24 19:40 Liver Function Panel: Alanine Aminotransferase (ALT/SGPT) 40 U/L (14-59) 03/24/24 19:40 Aspartate Amino Transf (AST/SGOT) 27 U/L (15-37) 03/24/24 19:40 Coagulation Panel: INR International Normalized Ratio 1.7 (0.9-1.1) H 03/25/24 12:43 Prothrombin Time 22.0 sec (9.1-11.1) H 03/24/24 19:40 Cardiac Panel: Troponin I < 50 ng/L (< or =60) 03/24/24 Arterial Blood Gas: No Data to Display Venous Blood Gas: No Data to Display Pancreas Panel: Lipase 40 U/L (16-77) 03/09/24 14:40 Thyroid Panel: No Data to Display Infectious Disease: No Data to Display Blood Cultures: No Data to Display Toxicology Panel: No Data to Display Imaging and Studies Imaging and Studies Study information below may be from another EMR and interpreted by another provider. Please see original notes in EMR for more complete details. EKG Summary: DATE/TIME OF SERVICE: 03/24/241939 : 1945 PERFORMING LOCATION: ER APPROVED REPORT Exam: Resting ECG Reason for Exam: dizziness Patient Location: E HR:81 bpm ECG Measurements Heart Rate 81 AXIS TX [id number] P [id number] QRSd 88 QRS 15 QT 376 T67 QTc 437 Conclusion Atrial fibrillation...? atrial activity I have reviewed and interpreted ECG and agree with software generated interpretation. Echocardiogram Summary: Date of Exam: 04/01/24 Sex: F Admission Date: 04/01/24 : 1945 Age: 78 APPROVED REPORT EXAM: Comprehensive 2D, Doppler, and color-flow Echocardiogram Patient Location: Out-Patient Elevator Conductor: Augustina Dean RDCS (AE) Indications: Pre operative exam , Syncope, Hypertension, A Fib Other Information Study Quality: Adequate Conclusion Normal left ventricular wall thickness and chamber size. Ejection fraction is 60%. Wall motion is normal Normal right ventricular size and function Both atria are normal in size Trileaflet aortic valve with trace regurgitation and Normal mitral valve with trace regurgitation Normal tricuspid valve with mild regurgitation. Estimated right ventricular systolic pressure is 30 mmHg Ascending aorta measures 3.66 cm Anesthesia Assessment and Plan Anesthesia History Personal History: No History of Anesthesia Complications Family History: No Family History of Anesthesia Complications Exercise Tolerance Exercise Tolerance: Metabolic Equivalents>4 Pertinent Negatives Pertinent Negatives: No Symptoms of GERD, No Major Pulmonary Symptoms or Complaints and No History of CVA/TIA Cardiac & Pulmonary Exam Cardiac Exam: Other Pulmonary Exam: Clear Bilateral Breath Sounds Implantable Cardiac Device Does patient have a Pacemaker or an ICD?: No Airway Exam Known Difficult Airway: No Mallampati Class: 1 Mouth Opening: Normal (> 3cm) Thyromental Distance: Less than 3 cm Neck Range of Motion: Full ROM Neck Circumference: Normal Teeth Condition: Edentulous ASA Classification ASA Score: ASA 3 Emergency Case?: No NPO Status NPO Status: NPO Clears >2 hours, Solids >8 hours Anesthesia Plan Resuscitation Status: Full Code Anesthesia Technique: General Anesthesia Airway Planned: Endotracheal Tube Monitors Used: Standard Monitors
[2024-04-06] MEDS: Gabapentin 300 MG CAP 600 MG PO (08:55)
[2024-04-06] MEDS: Acetaminophen 500 MG TAB 1000 MG PO ×2 (08:55→18:21)
[2024-04-06] MEDS: Indocyanine green 25 MG VIAL 5 MG IVP (09:22)
[2024-04-06] MEDS: Normal Saline Flush 10 ML SYR IV (09:22)
[2024-04-06] MEDS: Lactated Ringers 1,000 ML 80 ML IV (09:29)
[2024-04-06] MEDS: ERTAPENEM 1 GM in Normal Saline 50 ML IVPB (09:31)
--- NOTE | 2024-04-06 10:14 | NUR.NOTE ---
Pre-Op 10:10am pt threw up/nauseous. Expelled @ 20ml clear liquid. VSS. Cool compress, cool air. Anesthesia informed. Braulio Barrientos CRNA in room to see pt. Dr. Mendoza aware. Gabe NAGY 04/06/24 Nursing Note:
--- NOTE | 2024-04-06 11:25 | GB_PTH ---
PATIENT: Eileen Hernandez LOC: [place] Franco#:[id number] AGE/SX: 78/F ROOM: RE04/06/[address]: Estrella Mendoza : 1945 BED: A DIS: 04/07/2024 SPEC #: [id number] RECD: 04/06/24 13:03 STATUS: EMPERATRIZ REQ #: [id number] LIT: 04/06/24 11:[address]: Estrella Mendoza DEPT: Surgical Specimen RECD BY: Gwen Valderrama ENTERED: 04/06/24 13:03 SP TYPE: GB OTHR DR: Joaquin Box DNP Tissues: 1 - GALLBLADDER Procedures: GROSS AND MICRO LEVEL 3 Comments: [id number]
[2024-04-06] MEDS: Bupivacaine 0.25% Pres-Free W/EPI 30 ML VIAL (11:30)
[2024-04-06] MEDS: Lisinopril 20 MG TAB PO (13:05)
[2024-04-06] MEDS: hydroCHLOROthiazide 25 MG TAB PO (13:07)
--- NOTE | 2024-04-06 13:57 | W.ANESPOSTOP ---
Postoperative Evaluation Date, Time and Location Date Performed: 04/06/24 Time Performed: 13:25 Patient Location: Day Surgery Unit Vital Signs Most Recent Imported Vital Signs: Most Recent Vital Signs Temp Pulse Resp BP Pulse Ox 36 C L 51 L 16 157/73 H 99 04/06/24 13:24 04/06/24 13:24 04/06/24 13:24 04/06/24 13:24 04/06/24 13:24 Pain Score Most Recent Pain Score: Most Recent Pain Score Pain Level 0 04/06/24 13:24 Assessment Mental Status: Awake (Alert & Oriented to Patient Baseline) Airway and Respiratory Function: Patent airway with normal (patient baseline) respiratory exam Cardiovascular Function: Hemodynamically Stable Hydration Status: Adequately Hydrated Nausea & Vomiting: No Nausea or Vomiting Pain: Pt. Denies Any Pain Peripheral Nerve Block: Patient did not receive a nerve block
--- NOTE | 2024-04-06 14:45 | RT.EKG_ITS ---
APPROVED REPORT Exam: Resting ECG Reason for Exam: htn Patient Location: O HR:54 bpm ECG Measurements Heart Rate 54 AXIS HI 209 P 39 QRSd 95 QRS 6 QT 439 T 26 QTc 415 Conclusion Sinus bradycardia...rate< 60 Normal Electrocardiogram
[2024-04-06 15:24] LABS: HGB 13.4 g/dL (11.2-15.7)
[2024-04-06 15:41] LABS: Anion Gap 11.9 mmol/L (3-11); BUN 25 mg/dL (7-18); CO2 24.1 mmol/L (21.0-32.0); CREATININE 1.3 mg/dL (0.55-1.02); Calcium 8.7 mg/dL (8.5-10.1); Chloride 99 mmol/L (98-107); Estimated GFR 42.09 (mL/min/1.73m2); Glucose 210 mg/dL (74-106); Magnesium 1.4 mg/dL (1.8-2.4); Potassium 3.4 mmol/L (3.5-5.1); Sodium 135 mmol/L (136-145); Troponin I < 50 ng/L (< or =60)
[2024-04-06] MEDS: Lactated Ringers 1,000 ML 75 ML IV (16:35)
[2024-04-06] MEDS: Enoxaparin 30 MG/0.3 ML SYR SC (16:35)
[2024-04-06] MEDS: Ondansetron 4 MG/2 ML VIAL IVP (17:36)
--- NOTE | 2024-04-06 18:29 | NUR.NOTE ---
Nursing Note: Patient arrived to the floor very lethargic, but has become more alert and is talking with family. Patient had brief transient nausea following trying to eat, but now feels well and is drinking juice, requesting ice cream. Patient denies discomfort. Patient endorsed wanting to go home.
--- NOTE | 2024-04-06 20:26 | W.PM.PROGNOT ---
Date of Service Date of service: 04/06/24 Time of Service: 14:00 Assessment and Plan Assessment and plan (1) S/P laparoscopic cholecystectomy: Assessment and plan: Patient tolerated her procedure well and was doing in same-day surgery. She did eat some soup and crackers and had no nausea or vomiting. She got up to go to the bathroom and had some dizziness and a possible vasovagal episode. Her blood pressure was quite elevated throughout the course of her case and she had been given medication in PACU. Please see anesthesia notes for details. She was not hypotensive after the episode. She denied any chest pain or shortness of breath. She denied any jaw pain/numbness or tingling in her arms or nausea. She has no changes in her speech she was not slurring her smile was equal and she had equal and bilateral aquatic performer strength. Labs and EKG were done which were normal. She had no further episodes of bradycardia or hypertension while she was in same day. Lungs were clear to auscultation Abdomen is soft with appropriate postop tenderness. There is no bleeding through the dressings. However it was decided to keep her overnight for observation and telemetry monitoring. And she will is admitted up to [facility] (2) CKD (chronic kidney disease) stage 3, GFR 30-59 ml/min: Status: Chronic Qualifiers: Chronic kidney disease stage 3 subtype: stage 3b (GFR 30-44) Qualified Code(s): N18.32 - Chronic kidney disease, stage 3b (3) Streptococcal bacteremia: Status: Acute (4) Chronic anticoagulation: Status: Chronic (5) Gout: (6) Diabetes: Qualifiers: Chronic kidney disease stage: stage 3 (moderate) Chronic kidney disease stage 3 subtype: stage 3b (GFR 30-44) Diabetes mellitus complication detail: with chronic kidney disease Diabetes mellitus complication status: with kidney complications Diabetes mellitus intermediate frame 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 insulin use: without [facility] use Diabetes mellitus type: type 2 Qualified Code(s): E11.22 - Type 2 diabetes mellitus with diabetic chronic kidney disease; N18.32 - Chronic kidney disease, stage 3b (7) Renal insufficiency: Objective Last Vital Signs Temp 36.9 C 04/06/24 18:16 Pulse 60 04/06/24 18:16 Resp 16 04/06/24 18:16 BP 158/59 H 04/06/24 18:16 Pulse Ox 97 04/06/24 18:16 Laboratory Results - last 24 hr 04/06/24 15:20 Hgb 13.4 Hct 41.0 Sodium 135 L Potassium 3.4 L Chloride 99 Carbon Dioxide 24.1 Anion Gap 11.9 H BUN 25 H Creatinine 1.3 H Est GFR (CKD-EPI 2020) 42.09 Glucose 210 H Calcium 8.7 Magnesium 1.4 L Troponin I < 50 Time Spent with Patient Time Spent with Patient: 25-34 minutes Time was spent: preparing to see the patient(eg.review tests), obtaining and/or reviewing separately otained hiistory, ordering medications,tests, procedures, referring, communicating with other health field care coordinator, indepentently interpreting results, counseling the patient, care coordination and other
--- NOTE | 2024-04-06 20:29 | W.PM.PROGNOT ---
Date of Service Date of service: 04/06/24 Time of Service: 20:29 Assessment and Plan Assessment and plan (1) Vasovagal syncope: Status: Acute Assessment and plan: The patient is doing well post-op. Their pain is well controlled. They are having no nausea or vomiting. The pt is not having any chest pain or SOB, productive cough; no calf pain or swelling. The pt is making good urine. The pt pain is adequately controlled. The case was discussed with nursing and patient?s progress reviewed. All of the pt's home medications were addressed and adjusted accordingly for their oral intact status. HEENT: no jaundice. no eye pain/drainage/redness/swelling. Mild sore throat Cardio- NSR no chest pain, BP stable. Pulm: no sob or productive cough. no hemoptysis Incision- clean/dry. Dressing intact no excessive bleeding or drainage Patient is drowsy but easily arousable. She reports that she is just very tired and wiped out. She is having minimal pain. There is no abdominal distention. I discussed with the patient and/or there family about the findings in surgery and the pt's progress. We reviewed expectations for progress in the hospital; what the pt could expect for recovery time and length of stay. We discussed the importance of walking and pulmonary toilet to avoid blood clots and pneumonia. Continue current plans for pulmonary toilet, GI and DVT prophylaxis. We shall continue the current plan for pain management as it is at an appropriate level, and working well for the pt. Appropriate measures will be taken for constipation prevention, and this was also reviewed with the pt. The wound care plan was reviewed with nursing as well. see orders (2) Chronic anticoagulation: Status: Chronic (3) S/P laparoscopic cholecystectomy: (4) CKD (chronic kidney disease) stage 3, GFR 30-59 ml/min: Status: Chronic Qualifiers: Chronic kidney disease stage 3 subtype: stage 3b (GFR 30-44) Qualified Code(s): N18.32 - Chronic kidney disease, stage 3b (5) Streptococcal bacteremia: Status: Acute (6) Syncope: Status: Chronic (7) Weakness: Status: Acute (8) Diabetes: Qualifiers: Chronic kidney disease stage: stage 3 (moderate) Chronic kidney disease stage 3 subtype: stage 3b (GFR 30-44) Diabetes mellitus complication detail: with chronic kidney disease Diabetes mellitus complication status: with kidney complications 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: without [facility] use Diabetes mellitus type: type 2 Qualified Code(s): E11.22 - Type 2 diabetes mellitus with diabetic chronic kidney disease; N18.32 - Chronic kidney disease, stage 3b (9) Essential hypertension: (10) Paroxysmal atrial fibrillation: (11) Hyperlipidemia: Qualifiers: Hyperlipidemia type: mixed hyperlipidemia Qualified Code(s): E78.2 - Mixed hyperlipidemia (12) Gout: Objective Last Vital Signs Temp 36.9 C 04/06/24 18:16 Pulse 60 04/06/24 18:16 Resp 16 04/06/24 18:16 BP 158/59 H 04/06/24 18:16 Pulse Ox 97 04/06/24 18:16 Laboratory Results - last 24 hr 04/06/24 15:20 Hgb 13.4 Hct 41.0 Sodium 135 L Potassium 3.4 L Chloride 99 Carbon Dioxide 24.1 Anion Gap 11.9 H BUN 25 H Creatinine 1.3 H Est GFR (CKD-EPI 2020) 42.09 Glucose 210 H Calcium 8.7 Magnesium 1.4 L Troponin I < 50 Time Spent with Patient Time Spent with Patient: <25 minutes Time was spent: preparing to see the patient(eg.review tests), obtaining and/or reviewing separately otained hiistory, ordering medications,tests, procedures, referring, communicating with other health direct care supervisor, indepentently interpreting results, counseling the patient, care coordination and other
[2024-04-06] MEDS: traMADol 50 MG TAB PO (21:22)
[2024-04-06] MEDS: Docusate Sodium 100 MG CAP PO (21:22)
[2024-04-06] MEDS: MAGNESIUM SULFATE 2 GM/50 ML BAG IVINF (21:27)
[2024-04-06 22:58] LABS: Platelet Count 192 10^3/uL (130-400)
[2024-04-07] MEDS: Acetaminophen 500 MG TAB 1000 MG PO ×2 (00:30→09:30)
[2024-04-07 06:52] LABS: Anion Gap 11.7 mmol/L (3-11); BUN 19 mg/dL (7-18); CO2 24.3 mmol/L (21.0-32.0); CREATININE 1.2 mg/dL (0.55-1.02); Calcium 9.2 mg/dL (8.5-10.1); Chloride 102 mmol/L (98-107); Estimated GFR 46.33 (mL/min/1.73m2); Glucose 162 mg/dL (74-106); Magnesium 2.2 mg/dL (1.8-2.4); Potassium 4.2 mmol/L (3.5-5.1); Sodium 138 mmol/L (136-145); Troponin I < 50 ng/L (< or =60)
--- NOTE | 2024-04-07 07:13 | PGE_ITS ---
Date of Service Date of service: 04/07/24 Time of Service: 07:13 Assessment and Plan Assessment and plan (1) Vasovagal syncope: Status: Acute Assessment and plan: No further episodes of any type of syncope or presyncope. Magnesium is improved this morning. Plan to discharge home later this morning with outpatient follow- up. Subjective Subjective Interval history since last seen: Vero did well last night, was able to tolerate some dinner. She denies any pain this morning. Exam GI Other: Abdomen is soft and nondistended. She has good bowel sounds. Bandages are all clean and dry. Objective Last Vital Signs Temp 97.3 F L 04/06/24 23:27 Pulse 56 L 04/06/24 23:27 Resp 16 04/06/24 23:27 BP 123/76 04/06/24 23:27 Pulse Ox 97 04/06/24 23:27 Laboratory Results - last 24 hr 04/06/24 04/06/24 04/07/24 15:20 22:52 06:00 Hgb 13.4 Hct 41.0 Plt Count 192 Sodium 135 L 138 Potassium 3.4 L 4.2 Chloride 99 102 Carbon Dioxide 24.1 24.3 Anion Gap 11.9 H 11.7 H BUN 25 H 19 H Creatinine 1.3 H 1.2 H Est GFR (CKD-EPI 2020) 42.09 46.33 Glucose 210 H 162 H Calcium 8.7 9.2 Magnesium 1.4 L 2.2 Troponin I < 50 < 50 Time Spent with Patient Time Spent with Patient: 25-34 minutes Time was spent: preparing to see the patient(eg.review tests), indepentently interpreting results and counseling the patient
[2024-04-07 07:38] VITALS: BP 131/67; PULSE 50; RESP 17; TEMP 36.6; O2SAT 99
--- NOTE | 2024-04-07 08:43 | W.PM.DS.N ---
Date of service: 04/07/24 Time of Service: 08:44 DS: Diagnosis Discharge Diagnosis (1) Vasovagal syncope: Status: Acute Discharge Plan Disposition Patient Disposition: Home Condition: Good Discharge Details Reason For Visit: S/P Lap Anaya/Vasovagel Admit Date/Time: 04/06/24 14:49 Admit Provider: Estrella Mendoza Attending Provider: Estrella Mendoza Primary Care Provider: Joaquin Moss Hospital Course Hospital Course: 78 y/o female whom was admitted over night for observation following laparoscopic Cholecystectomy following a presyncope vs syncopal episode post-operatively in day surgery. She did not have any neurological symptoms. However she was hypertensive and bradycardic. Over night she did well, with abdominal discomfort was managed and she did not have any recurrence of her pre-syncopal or syncopal symptoms. She is eager to return home today and is feeling much better. Home Meds and New Rx's Prescriptions: New tramadol 50 mg tablet 50 mg PO Q6H PRNQty: 14 0RF ondansetron 4 mg tablet,disintegrating 4 mg PO Q6H PRN (Reason: nausea and vomiting) Qty: 10 0RF Continued lidocaine 4 % adhesive patch,medicated 1 patch topical DAILY PRN (Reason: pain) Qty: 30 0RF omeprazole 40 mg capsule,delayed release(DR/EC) 40 mg PO DAILY Qty: 90 4RF atorvastatin 40 mg tablet 40 mg PO HS Qty: 90 4RF diltiazem HCl [Cardizem CD] 120 mg capsule,extended release 24hr 120 mg PO DAILY Qty: 90 4RF lisinopril-hydrochlorothiazide 20-25 mg tablet 1 tab PO DAILY Qty: 90 3RF diclofenac sodium [Arthritis Pain (diclofenac)] 1 % gel 4 g topical QID Qty: 100 4RF Rx Instructions: apply to single knee, ankle, foot; for foot includes sole/toes/top of foot metformin 500 mg tablet 500 mg PO BID Qty: 180 3RF levofloxacin 500 mg tablet 500 mg PO DAILY Qty: 14 2RF ondansetron 4 mg tablet,disintegrating 4 mg PO Q6H PRN (Reason: nausea and vomiting) Qty: 30 0RF hydrocortisone [Anusol-HC] 2.5 % cream with perineal applicator 1 applic LA BID-QID PRN (Reason: hemorrhoids) Qty: 30 0RF hydrochlorothiazide 25 mg Tablet 25 mg PO QAM Qty: 90 0RF acetaminophen 500 mg tablet 500 mg PO Q6H PRN PRN (Reason: pain) Qty: 60 3RF Held warfarin 1 mg tablet 2 mg PO QPM Hold Instructions: Resume on 04/12/24. Protocol: Dose Management Condition: Friday Dose/Route: 2 mg Instruction: 2 x 1 mg tablets Condition: Friday Dose/Route: 2 mg Instruction: 2 x 1 mg tablets Condition: Friday Dose/Route: 1 mg Instruction: 1 x 1 mg tablet Condition: Friday Dose/Route: 2 mg Instruction: 2 x 1 mg tablets Condition: Dose/Route: 1 mg Instruction: 1 x 1 mg tablet Condition: Friday Dose/Route: 2 mg Instruction: 2 x 1 mg tablets Condition: Friday Dose/Route: 1 mg Instruction: 1 x 1 mg tablet Protocol Text: Adjustment Start Date: 03/25/24 INR Value: 1.7 INR Date: 03/25/24 Recheck Date: 04/01/24 Discharge Instructions Additional Instructions: Care after Gallbladder Surgery -Pain control: ?For the first 72 hours after surgery, take your pain meds continuously, and not just when you have pain.?? Alternate Tylenol 1000mg by mouth every 8 hours, and Ibuprofen 600mg every 6 hours.? Make sure you take ibuprofen with food and not on an empty stomach.? ??Use the tramadol for breakthrough pain- pain that is greater than a 7. ?- Use ICE! Ice really helps to keep the swelling down, and swelling causes pain. ??Twenty minutes on, and then off, continuously for the first 72hours.? After the first 72hrs, you can just use the Tylenol, ibuprofen or Celebrex, and ice, when you have pain.?? If you are taking narcotic pain medication, follow the instructions on the label and do not drive. Pain medications can make you very constipated. Make sure you are moving your bowels daily. If not, take Miralax. - Anesthesia makes you very constipated.? Take a dose of Miralax the morning after surgery. ? Use an ice bag for the first 72 hours. This helps to decrease swelling, which causes pain. It is normal to be more sore/painful and swollen towards the end of the day and first thing in the morning. ? Gallbladder surgery can make you very nauseated; use Zofran for nausea, for the first 24 hours. The nausea generally stops after 24 hours. ? Use Miralax or prune juice to prevent constipation (this is a particular side effect of pain medication and anesthesia). Do not allow yourself to become constipated. ? Avoid fatty or greasy foods; introduce these slowly, with care, after about 1 month. High-fat foods include: ? Foods that are fried, like Italian fries and potato chips ? High-fat meats, such as waddell, bologna, sausage, ground beef, and ribs, pork products ? High-fat dairy products, such as cheese, ice cream, cream, whole milk, and sour cream ? Pizza ? Foods made with lard or butter ? Creamy soups or sauces ? Meat gravies ? Chocolate ? Oils, such as palm and coconut oil ? Skin of chicken or turkey ? Nuts and nut butters ? Avocadoes ? Start out eating very small, bland amounts of food. Do not take pain pills on an empty stomach. - You will notice purple discoloration around the incisions.? This is the ?skin glue?.? This will wear off on its own.? It is OK to shower after 24hrs.? You do not need to cover the incisions. -You should walk frequently, gradually, increasing the distance. You may climb stairs, just go slowly. ? Do not go swimming or sit in a hot tub for two weeks. ? There are no stitches to remove. ? Do not drive your car x72hrs and then only if you have no pain and can move freely. Do not drive if you are taking pain narcotic pain medications. ? You may resume sexual activity whenever pain and soreness subside, usually in 2 weeks. ? Do no lift anything over 5 lbs. for two weeks. ? You may return to work in one week, or when you feel able, provided you do not have to do any heavy lifting or prolonged standing. ? You should return to Dr. Mendoza?s office for a post-op appointment about two weeks after surgery. A follow-up should have been scheduled for you already.? If there is not, please call the Surgical Clinic at: [phone] to schedule an appointment. -hold coumadin until 04/13. Resume coumadin on 04/14, with the same coumadin protocol. Contact your PCP to schedule INR check on or after 04/19. My Medications for pain and nausea are: Tylenol/ibuprofen ?and ultram- for severe pain ?and Zofran-nausea When to Call the Office: ? If the incision becomes red or swollen, or there is more than a little drainage from it. ? If you develop a temperature higher than 100.5 F. ? If your eyes turn yellow ? Vomiting and can?t keep fluids down Stand Alone Forms: Anesthesia Discharge Inst., Linda Weinstein ([facility]) Referrals: Estrella Mendoza DO [OSTEOPATHIC DOCTOR] - (2 week post-op s/p mac baker) Activity:: see above Equipment/Supplies:: No Equipment Needed Diet:: low fat Discharge Orders Discharge Orders: Discharge Order (Routine); Ordered 04/07/24 Ordered By: Juanito Ayala DS: Summary Time Spent with Patient providing and/or coordinating discharge services: Less than 30 minutes Status at Discharge Functional status at discharge: independent ambulation Overall status at discharge: patient is back to baseline Mental Status: mental status grossly normal Speech and Movement: speech and movement normal Mood: congruent mood Affect: normal affect Quality:SDOH Health Related Social Needs: No Data to Display Exam Const General: cooperative, healthy appearing and comfortable Orientation: alert and oriented x3 Resp Effort & Inspection: normal respiratory effort, no audible wheezes and no cough GI Other: Abdomen is soft and nondistended. She has good bowel sounds. Bandages are all clean and dry. Psych Mental Status: mental status grossly normal Speech and Movement: speech and movement normal Mood: congruent mood Affect: normal affect DS: Data Vitals/I&O Vitals and I&O: Vital Signs Temperature 36.6 C 04/07/24 07:38 Temperature Source Skin 04/07/24 07:38 Pulse 50 L 04/07/24 07:38 Pulse Rhythm Regular 04/06/24 21:40 Pulse 48 L 04/06/24 12:21 Respiratory Rate 17 04/07/24 07:38 Respiratory Effort Normal, Non-Labored 04/06/24 21:40 Respiratory Depth Normal 04/06/24 21:40 Respiratory Pattern Normal 04/06/24 21:40 Blood Pressure 131/67 04/07/24 07:38 Blood Pressure Mean 104 04/06/24 12:21 Pulse Oximetry 99 04/07/24 07:38 Respiratory End-tidal CO2 31 04/06/24 12:35 Oxygen Delivery Method Room Air 04/07/24 07:38 Oxygen Flow Rate 0 04/07/24 07:38 Pain Level 0 04/07/24 07:38 Comment HARIKA VALDEZ PRESCRIBING ORAL ANTI HYPERTENSIVES FOR PT IN [facility]. 04/06/24 12:21 Intake & Output 04/06/24 04/07/24 04/07/24 18:59 06:59 18:59 Intake Total 1325 / 1575 250 / 1575 1000 / 1000 Output Total 315 / 415 100 / 415 Balance 1010 / 1160 150 / 1160 1000 / 1000 Weight 57.7 kg Intake: IV 1050 / 1050 1000 / 1000 Oral 275 / 525 250 / 525 Output: Urine 300 / 400 100 / 400 Emesis 0 / 0 Estimated Blood Loss 15 Other: Urine Color Yellow Yellow Urine Appearance Clear Clear Urine Odor None Normal Emesis Description None Voiding Methods Toilet Bedside Commode Data Completed and Pending Labs on day of discharge: Labs from last 24 hours 04/07/24 04/06/24 04/06/24 06:00 22:52 15:20 Hgb 13.4 Hct 41.0 Plt Count 192 Sodium 138 135 L Potassium 4.2 3.4 L Chloride 102 99 Carbon Dioxide 24.3 24.1 Anion Gap 11.7 H 11.9 H BUN 19 H 25 H Creatinine 1.2 H 1.3 H Est GFR (CKD-EPI 2020) 46.33 42.09 Glucose 162 H 210 H Calcium 9.2 8.7 Magnesium 2.2 1.4 L Troponin I < 50 < 50 PFSH All Active Problems (Updated 04/07/24 @ 00:09 by TYRONE MCPHERSON) Vasovagal syncope (Acute) Colitis (Acute) CKD (chronic kidney disease) stage 3, GFR 30-59 ml/min (Chronic) Scapular dyskinesis (Acute) Syncope (Chronic) Upper back pain on right side (Acute) Pain in right shoulder (Acute) Weakness (Acute) Abnormal findings on esophagogastroduodenoscopy (EGD) (Acute 09/16/18) EGD with Dr Olmedo, then followed by Dr Vallecillo, [place] [facility] Chronic anticoagulation (Chronic) Back on Warfarin Jun 12, 2023 Tendinitis of right rotator cuff (Acute) Carpal tunnel syndrome of right wrist (Acute) Advanced care planning/counseling discussion (Acute) Rectal bleeding (Acute) Constipation (Acute) Medical History (Updated 04/07/24 @ 00:09 by TYRONE MCPHERSON) Renal insufficiency Paroxysmal atrial fibrillation Hyperlipidemia (04/07/13) Family history of premature CAD (04/28/18) father with [place] at age 45 and was a heavy smoker. 2 smoking siblings with CAD in 60's. Essential hypertension (07/06/13) Diabetes Adenocarcinoma of endometrium Stage 1A-grade 1: tx with surgery only (Hyst.nancy) 08/2011 [place] [facility] [place] History (Updated 04/06/24 @ 20:30 by Estrella Mendoza, ) S/P laparoscopic cholecystectomy History of eye surgery Injury to her right eye Required two surgeries History of hand surgery Left hand - for pain Unknown further details History of shoulder surgery Left - unknown details History of hysterectomy with bilateral oophorectomy Endometrial Biopsy [facility]-ADENOCARCINOMA, EDONMETRIAL TYPE, FIGO GARDE 1, WITH MUCINOUS FEATURES. 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 [employer] Pets and animals: No Sexually active: No Do you think of yourself as: straight/heterosexual Current gender identity: female What is your relationship status?: How often do you talk on the phone with friends or family?: three or more times per week How often do you get together with friends or relatives?: three or more times per week How often do you attend gnosticism or mu-ism services?: decline to answer Do you belong to any clubs or organized social groups?: yes Panel score (0-1 are the most socially isolated patients): 3 What type of physical activity do you participate in: walking Duration: 30-45 minutes/day Frequency: 5-6 times per week Shannan/Evangelical: No preference Special shannan needs: No Seatbelt use: always Helmet use: Yes Helmet use: always Drive intox or ride w/intox ambulette driver: No Firearms in home: Yes Firearms unloaded and locked: Yes Do you feel safe at home: Yes Do you feel safe in your relationship?: Yes Would you like helpful sources: No Time Spent with Patient Time Spent with Patient: <45 minutes Time was spent: preparing to see the patient(eg.review tests), obtaining and/or reviewing separately otained hiistory and counseling the patient
[2024-04-07] MEDS: Lisinopril 20 MG TAB PO (09:29)
[2024-04-07] MEDS: metFORMIN 500 MG TAB PO (09:29)
[2024-04-07] MEDS: Omeprazole 20 MG CAPCR 40 MG PO (09:29)
[2024-04-07] MEDS: levoFLOXacin 500 MG TAB PO (09:29)
[2024-04-07] MEDS: Docusate Sodium 100 MG CAP PO (09:30)
[2024-04-07] MEDS: dilTIAZem CD 120 MG CAPCR PO (09:30)
[2024-04-07] MEDS: hydroCHLOROthiazide 25 MG TAB PO (09:30)
--- NOTE | 2024-04-07 09:34 | PDOC.CMIN ---
Date of service: 04/07/24 Time of Service: 09:34 [facility] Advance Directives Advance Directives: Do you have an Advance Directive: N 03/01/23 21:26 AD On File at [facility]: N 03/01/23 21:26 Date Asked 04/06/24 03/31/24 14:28 AD Date Reviewed COLST On File at [facility] Yes 03/31/24 14:28 COLST Date Scanned 05/07/22 03/31/24 14:28 Code Status Resuscitation Status DNR/DNI Care Team Visit Care Team Role Provider Type Joaquin Muñoz NP Primary Care Provider NURSE PRACTITIONER Estrella Mendoza DO Admit Provider OSTEOPATHIC DOCTOR Attending Provider [facility] All Active Problems (Updated 04/07/24 @ 00:09 by TYRONE MCPHERSON) Vasovagal syncope (Acute) Colitis (Acute) CKD (chronic kidney disease) stage 3, GFR 30-59 ml/min (Chronic) Scapular dyskinesis (Acute) Syncope (Chronic) Upper back pain on right side (Acute) Pain in right shoulder (Acute) Weakness (Acute) Abnormal findings on esophagogastroduodenoscopy (EGD) (Acute 09/16/18) EGD with Dr Olmedo, then followed by Dr Vallecillo, referred to [facility] [place] [facility] Chronic anticoagulation (Chronic) Back on Warfarin Jun 12, 2023 Tendinitis of right rotator cuff (Acute) Carpal tunnel syndrome of right wrist (Acute) Advanced care planning/counseling discussion (Acute) Rectal bleeding (Acute) Constipation (Acute) Medical History (Updated 04/07/24 @ 00:09 by TYRONE MCPHERSON) Renal insufficiency Paroxysmal atrial fibrillation Hyperlipidemia (04/07/13) Family history of premature CAD (04/28/18) father with [place] at age 45 and was a heavy smoker. 2 smoking siblings with CAD in 60's. Essential hypertension (07/06/13) Diabetes Adenocarcinoma of endometrium Stage 1A-grade 1: tx with surgery only (Hyst.bilat.ooph.) 08/2011 - [facility] [place] Surgical History (Updated 04/06/24 @ 20:30 by Estrella Mendoza DO) S/P laparoscopic cholecystectomy History of eye surgery Injury to her right eye Required two surgeries History of hand surgery Left hand - for pain Unknown further details History of shoulder surgery Left - unknown details History of hysterectomy with bilateral oophorectomy Endometrial Biopsy [facility]-ADENOCARCINOMA, EDONMETRIAL TYPE, FIGO GARDE 1, WITH MUCINOUS FEATURES. Family History Mother Cancer Brother Heart disease Brother Cancer Sister Heart disease Sister Alcohol abuse Other Family history of premature CAD Social History Smoking/Tobacco Use Status: Never Second Hand Exposure: Yes Smoking risk assessment performed?: Yes Alcohol Intake: never Drug use: Never Substance use type: does not use Adopted: No Household members: spouse Housing: house Education Level: middle school Details: 8 years current occupation: [employer] Pets and animals: No Sexually active: No Do you think of yourself as: straight/heterosexual Current gender identity: female What is your relationship status?: How often do you talk on the phone with friends or family?: three or more times per week How often do you get together with friends or relatives?: three or more times per week How often do you attend yarsani or mosque services?: decline to answer Do you belong to any clubs or organized social groups?: yes Panel score (0-1 are the most socially isolated patients): 3 What type of physical activity do you participate in: walking Duration: 30-45 minutes/day Frequency: 5-6 times per week Shannan/Confucianism: No preference Special shannan needs: No Seatbelt use: always Helmet use: Yes Helmet use: always Drive intox or ride w/intox shuttle truck driver: No Firearms in home: Yes Firearms unloaded and locked: Yes Do you feel safe at home: Yes Do you feel safe in your relationship?: Yes Would you like helpful sources: No
--- NOTE | 2024-04-07 12:10 | CMPROGNOTE_ITS ---
Date of service: 04/07/24 Time of Service: 12:10 Care Management Progress Note Progress Note Text Progress Note Text: Eileen went to the OR for a laparoscopic cholecystectomy yesterday. Post- operatively she had a syncopal/near syncopal episode and remained hospitalized overnight for monitoring. Maddison had no further syncopal episodes and felt well this morning. Her pain was well controlled, she was eating and drinking and was able to be discharged home. Discharge Potential Discharge Needs: PCP F/U Appt and Surgical F/U Appt Anticipated Barriers to Discharge: None Identified Patient/Family Education Needs: Review discharge instructions, discuss Ask Me Three Transportation: Private vehicle Plan: Eileen will be discharged home with no new services. She will follow up with her surgeon and transport with her .
== END 2024-04-07 09:58 | disposition home or self-care (01) ==
LOC: MS 04-07 08:29 → SUR 04-07 08:30 → MS 04-07 08:30
PROVIDERS: Admitting Provider Surgery; PCP Nurse Practitioner Family; Visit Provider Surgery
PROC: 0FT44ZZ Resection of Gallbladder, Percutaneous Endoscopic Approach (ICD-10-PCS; CPT 47562; principal; 2024-04-06 10:15)
DX: K80.12 Calculus of gallbladder with acute and chronic cholecystitis without obstruction (principal); I97.191 Other postprocedural cardiac functional disturbances following other surgery; R78.81 Bacteremia; I48.0 Paroxysmal atrial fibrillation; N18.32 Chronic kidney disease, stage 3b; E11.22 Type 2 diabetes mellitus with diabetic chronic kidney disease; E78.2 Mixed hyperlipidemia; Z79.01 Long term (current) use of anticoagulants; R53.1 Weakness; I12.9 Hypertensive chronic kidney disease with stage 1 through stage 4 chronic kidney disease, or unspecified chronic kidney disease; B95.5 Unspecified streptococcus as the cause of diseases classified elsewhere; R55 Syncope and collapse
CPT/HCPCS: 47562; 36415; 80048; 96372; 96374; 96375; 83735; 84484; 85014; 85018; 85049; 88304; 93005; 93010; G0378; J1100; J1335; J1650; J2001; J2405; J2704; J3475

== ENCOUNTER 2024-04-18 13:36 | Emergency (ER) | payer OTHER, SELFPAY ==
[2024-04-18 13:44] VITALS: BP 129/73; PULSE 76; RESP 14; TEMP 36.4; O2SAT 98
--- NOTE | 2024-04-18 13:45 | DI.CT_ITS ---
Exam(s) CT ABDOMEN PELVIS W EXAM: CT ABDOMEN PELVIS W CLINICAL HISTORY: one week post op samuel, constipation. TECHNIQUE: Imaging Protocol: Axial computed tomography images with coronal and sagittal reformatted images were created and reviewed CONTRAST MATERIAL: Intravenous: Omnipaque 350 Contrast volume:100 ml Oral: / no COMPARISON: CT CT ABDOMEN PELVIS W from 03/24/2024 FINDINGS: ABDOMEN and PELVIS: Lung Bases: No acute findings. Liver: Normal density. No suspicious mass. No perihepatic collection. Gallbladder and biliary tract: Status post cholecystectomy. No fluid in the gallbladder fossa. No b iliary dilation. Pancreas: Normal density. No abnormal calcifications or inflammatory process. No evidence of mass. Spleen: Normal. Kidneys: Normal size, contour and axis. No radiodense stones. No obstructive uropathy. No suspicious masses seen. Adrenal glands: No masses seen. Vasculature: Abdominal aorta non-dilated. Moderate to severe atherosclerotic changes. Soft tissues: Mild soft tissue stranding in the region of the umbilicus related to recent surgery. Bladder: No gross wall thickening. No calculi.No focal mass. Bowel: Large quantity of stool distending the rectum, measuring 7.2 cm in diameter. The remainder of the colon shows a moderate quantity of stool. No obstruction. No bowel wall thickening. Appendix not visualized. Peritoneal cavity: No ascites. No focal collection. No mesenteric inflammatory response. Bones: Unremarkable for age. Reproductive organs: Status post hysterectomy. Lymph nodes: No pathologically enlarged lymph nodes. IMPRESSION:: Large quantity of stool in the rectum. No evidence of bowel obstruction. Status post cholecystectomy. No biliary dilatation, abscess or fluid collection. RADIATION DOSE DELIVERED: Total DLP DATA REPOSITORY: All CT scans at this facility are submitted to the National Radiology Data Registry (NRDR) Dose Index Registry (DIR) with the [employer] (ACR). RADIATION OPTIMIZATION: All CT scans at this facility use at least one of these dose optimization te chniques: automated exposure control; mA and/or kV adjustment per patient size (includes targeted exa ms where dose is matched to clinical indication); or iterative reconstruction.
[2024-04-18 13:50] VITALS: BP 129/73; PULSE 76; RESP 14; TEMP 36.4; O2SAT 98
[2024-04-18 13:51] VITALS: RESP 14
--- NOTE | 2024-04-18 13:59 | ED.GENADUL_ITS ---
Discharge Plan Disposition Patient Disposition: Home Condition: Improving Discharge Details Clinical Impression: Constipation Primary Care Provider: Joaquin Moss ED Provider: Agustin Aponte Home Meds and New Rx's Prescriptions: New docusate sodium [Colace] 100 mg capsule 100 mg PO DAILY 14 Days Qty: 14 0RF No Action lidocaine 4 % adhesive patch,medicated 1 patch topical DAILY PRN (Reason: pain) Qty: 30 0RF omeprazole 40 mg capsule,delayed release(DR/EC) 40 mg PO DAILY Qty: 90 4RF atorvastatin 40 mg tablet 40 mg PO HS Qty: 90 4RF diltiazem HCl [Cardizem CD] 120 mg capsule,extended release 24hr 120 mg PO DAILY Qty: 90 4RF lisinopril-hydrochlorothiazide 20-25 mg tablet 1 tab PO DAILY Qty: 90 3RF diclofenac sodium [Arthritis Pain (diclofenac)] 1 % gel 4 g topical QID Qty: 100 4RF Rx Instructions: apply to single knee, ankle, foot; for foot includes sole/toes/top of foot metformin 500 mg tablet 500 mg PO BID Qty: 180 3RF ondansetron 4 mg tablet,disintegrating 4 mg PO Q6H PRN (Reason: nausea and vomiting) Qty: 30 0RF hydrocortisone [Anusol-HC] 2.5 % cream with perineal applicator 1 applic GA BID-QID PRN (Reason: hemorrhoids) Qty: 30 0RF warfarin 1 mg tablet 1.5 mg PO QPM Protocol: Dose Management Condition: Friday Dose/Route: 1.5 mg Instruction: 1.5 x 1 mg tablets Condition: Friday Dose/Route: 1.5 mg Instruction: 1.5 x 1 mg tablets Condition: Friday Dose/Route: 1.5 mg Instruction: 1.5 x 1 mg tablets Condition: Friday Dose/Route: 1.5 mg Instruction: 1.5 x 1 mg tablets Condition: Dose/Route: 1.5 mg Instruction: 1.5 x 1 mg tablets Condition: Friday Dose/Route: 1.5 mg Instruction: 1.5 x 1 mg tablets Condition: Friday Dose/Route: 1.5 mg Instruction: 1.5 x 1 mg tablets Protocol Text: Adjustment Start Date: 04/15/24 INR Value: 2.0 INR Date: 04/15/24 Recheck Date: 04/22/24 hydrochlorothiazide 25 mg Tablet 25 mg PO QAM Qty: 90 0RF acetaminophen 500 mg tablet 500 mg PO Q6H PRN PRN (Reason: pain) Qty: 60 3RF tramadol 50 mg tablet 50 mg PO Q6H PRNQty: 14 0RF ondansetron 4 mg tablet,disintegrating 4 mg PO Q6H PRN (Reason: nausea and vomiting) Qty: 10 0RF Discharge Instructions Instructions: Constipation in adults Additional Instructions: Please return to the emergency department for any worsening symptoms. Follow-up close with your primary care physician and general surgeon. HPI General Date/Time Provider Initiated Documentation: 04/18/24 13:39 . HPI Narrative: 78-year-old female over 1 week postop from cholecystectomy laparoscopic, presents with constipation over the last week, denies passing stool or flatus over the last couple of days, feels slightly nauseous. Decrease p.o. intake Related Data Home Medications ?Medication ?Instructions ?Recorded ?Confirmed acetaminophen 500 mg tablet 500 mg PO Q6H PRN PRN pain #60 tabs 05/19/19 04/18/24 hydrocortisone 2.5 % topical cream 1 applic GA BID-QID PRN 03/01/23 04/18/24 with perineal applicator hemorrhoids #30 grams (Anusol-HC) lidocaine 4 % topical patch 1 patch topical DAILY PRN pain #30 07/08/23 04/18/24 ea atorvastatin 40 mg tablet 40 mg PO HS #90 tabs 12/11/23 04/18/24 diclofenac sodium 1 % topical gel 4 g topical QID #100 grams 12/11/23 04/18/24 (Arthritis Pain (diclofenac)) diltiazem HCl 120 mg 120 mg PO DAILY #90 caps 12/11/23 04/18/24 capsule,extended release 24 hr (Cardizem CD) lisinopril 20 1 tab PO DAILY #90 tabs 12/11/23 04/18/24 mg-hydrochlorothiazide 25 mg tablet metformin 500 mg tablet 500 mg PO BID #180 tabs 12/11/23 04/18/24 omeprazole 40 mg capsule,delayed 40 mg PO DAILY #90 caps 12/11/23 04/18/24 release warfarin 1 mg tablet 1.5 mg PO QPM 03/04/24 04/18/24 hydrochlorothiazide 25 mg tablet 25 mg PO QAM #90 tabs 03/05/24 04/18/24 ondansetron 4 mg disintegrating 4 mg PO Q6H PRN nausea and 03/09/24 04/18/24 tablet vomiting #30 tabs ondansetron 4 mg disintegrating 4 mg PO Q6H PRN nausea and 04/05/24 04/18/24 tablet vomiting #10 tabs tramadol 50 mg tablet 50 mg PO Q6H PRN #14 tabs 04/05/24 04/18/24 docusate sodium 100 mg capsule 100 mg PO DAILY 14 days #14 caps 04/18/24 (Colace) Previous Rx's ?Medication ?Instructions ?Recorded acetaminophen 500 mg tablet 500 mg PO Q6H PRN PRN pain #60 tabs 05/19/19 hydrocortisone 2.5 % topical cream 1 applic GA BID-QID PRN 03/01/23 with perineal applicator hemorrhoids #30 grams (Anusol-HC) lidocaine 4 % topical patch 1 patch topical DAILY PRN pain #30 07/08/23 ea atorvastatin 40 mg tablet 40 mg PO HS #90 tabs 12/11/23 diclofenac sodium 1 % topical gel 4 g topical QID #100 grams 12/11/23 (Arthritis Pain (diclofenac)) diltiazem HCl 120 mg 120 mg PO DAILY #90 caps 12/11/23 capsule,extended release 24 hr (Cardizem CD) lisinopril 20 1 tab PO DAILY #90 tabs 12/11/23 mg-hydrochlorothiazide 25 mg tablet metformin 500 mg tablet 500 mg PO BID #180 tabs 12/11/23 omeprazole 40 mg capsule,delayed 40 mg PO DAILY #90 caps 12/11/23 release hydrochlorothiazide 25 mg tablet 25 mg PO QAM #90 tabs 03/05/24 ondansetron 4 mg disintegrating 4 mg PO Q6H PRN nausea and 03/09/24 tablet vomiting #30 tabs ondansetron 4 mg disintegrating 4 mg PO Q6H PRN nausea and 04/05/24 tablet vomiting #10 tabs tramadol 50 mg tablet 50 mg PO Q6H PRN #14 tabs 04/05/24 docusate sodium 100 mg capsule 100 mg PO DAILY 14 days #14 caps 04/18/24 (Colace) Allergies Allergy/AdvReac Type Severity Reaction Status Date / Time Penicillins AdvReac Intermediate Rash Verified 04/18/24 13:46 bandaids AdvReac Mild breaks Uncoded 04/18/24 13:46 out General Stated Complaint: GenMedical BRITTANY: 3 Exam Narrative Exam Narrative: Alert oriented interactive Moist mucous membranes tolerating secretions Voice no respiratory distress speaking full sentences Abdomen soft nontender nondistended nontympanic, laparoscopic port sites clean dry intact no evidence of dehiscence or infection Moving extremities without deficits alert oriented neurologically intact Course Vital Signs Vital signs: Vital Signs Temperature 36.4 C L 04/18/24 13:44 Pulse 76 04/18/24 13:44 Respiratory Rate 14 04/18/24 13:44 Blood Pressure 129/73 04/18/24 13:44 Pulse Oximetry 98 04/18/24 13:44 Temperature 36.4 C L 04/18/24 13:50 Temperature Source Temporal Artery Scan 04/18/24 13:50 Pulse 76 04/18/24 13:50 Respiratory Rate 14 04/18/24 13:51 Respiratory Effort Normal 04/18/24 13:51 Respiratory Depth Normal 04/18/24 13:51 Respiratory Pattern Normal 04/18/24 13:51 Blood Pressure 129/73 04/18/24 13:50 Blood Pressure Position Sitting 04/18/24 13:50 Pulse Oximetry 98 04/18/24 13:50 Oxygen Delivery Method Room Air 04/18/24 13:50 Oxygen Flow Rate 0 04/18/24 13:50 Pain Level 5 04/18/24 13:50 Medical Decision Making 78-year-old female over 1 week postop from cholecystectomy laparoscopic, presents with constipation over the last week, denies passing stool or flatus over the last couple of days, feels slightly nauseous. Decrease p.o. intake; resting comfortably hemodynamically stable afebrile nontoxic nonperitoneal abdomen soft nontender nondistended, laparoscopic port sites clean dry intact no signs of dehiscence or infection, consider ileus versus less likely postop infection versus less likely bowel obstruction versus medication related constipation. No evidence of peritonitis. Will obtain CT abdomen pelvis, basic labs, fluids antiemetics, if CT abdomen unremarkable will administer oral and rectal medication to assist in bowel movement 16: 56 patient resting with no acute distress. V rad report concern for stercoral colitis however in-house read not commenting on stercoral colitis. Consulted general surgery who counseled safety of attempted manual disimpaction and enemas at bedside. 18: 10 patient had large formed bowel movement after soapsuds enema. Resting notably no acute distress. Will send home on bowel regimen. Quality:[facility] Health Related Social Needs: No Data to Display PFSH All Active Problems (Updated 04/18/24 @ 18:10 by Agustin Aponte MD) Constipation (Acute) Colitis (Acute) CKD (chronic kidney disease) stage 3, GFR 30-59 ml/min (Chronic) Scapular dyskinesis (Acute) Upper back pain on right side (Acute) Pain in right shoulder (Acute) Abnormal findings on esophagogastroduodenoscopy (EGD) (Acute 09/16/18) EGD with Dr Olmedo, then followed by Dr Vallecillo, referred to [facility] [facility] Chronic anticoagulation (Chronic) Back on Warfarin Jun 12, 2023 Tendinitis of right rotator cuff (Acute) Carpal tunnel syndrome of right wrist (Acute) Advanced care planning/counseling discussion (Acute) Rectal bleeding (Acute) Constipation (Acute) Medical History (Updated 04/18/24 @ 18:10 by Agustin Aponte MD) Renal insufficiency Paroxysmal atrial fibrillation Hyperlipidemia (04/07/13) Family history of premature CAD (04/28/18) father with MA at age 45 and was a heavy smoker. 2 smoking siblings with CAD in 60's. Essential hypertension (07/06/13) Diabetes Adenocarcinoma of endometrium Stage 1A-grade 1: tx with surgery only ([email or web address].) 08/2011 - [facility] [place] Surgical History (Updated 04/07/24 @ 14:28 by Radha Clay) S/P laparoscopic cholecystectomy (~03/2024) History of eye surgery Injury to her right eye Required two surgeries History of hand surgery Left hand - for pain Unknown further details History of shoulder surgery Left - unknown details History of hysterectomy with bilateral oophorectomy Endometrial Biopsy [facility]-ADENOCARCINOMA, EDONMETRIAL TYPE, FIGO GARDE 1, WITH MUCINOUS FEATURES. Family History Mother Cancer Brother Heart disease Brother Cancer Sister Heart disease Sister Alcohol abuse Other Family history of premature CAD Social History Smoking/Tobacco Use Status: Never Second Hand Exposure: Yes Smoking risk assessment performed?: Yes Alcohol Intake: never Drug use: Never Substance use type: does not use Adopted: No Household members: spouse Housing: house Education Level: middle school Details: 8 years current occupation: [employer] Pets and animals: No Sexually active: No Do you think of yourself as: straight/heterosexual Current gender identity: female What is your relationship status?: How often do you talk on the phone with friends or family?: three or more times per week How often do you get together with friends or relatives?: three or more times per week How often do you attend advent or moravian services?: decline to answer Do you belong to any clubs or organized social groups?: yes Panel score (0-1 are the most socially isolated patients): 3 What type of physical activity do you participate in: walking Duration: 30-45 minutes/day Frequency: 5-6 times per week Shannan/Worship: No preference Special shannan needs: No Seatbelt use: always Helmet use: Yes Helmet use: always Drive intox or ride w/intox special events driver: No Firearms in home: Yes Firearms unloaded and locked: Yes Do you feel safe at home: Yes Do you feel safe in your relationship?: Yes Would you like helpful sources: No
[2024-04-18] MEDS: Ondansetron 4 MG/2 ML VIAL IVP (14:32)
[2024-04-18] MEDS: Normal Saline 1,000 ML 1000 ML IV (14:32)
[2024-04-18 14:35] LABS: Abs Immature Grans 0.04 10^3/uL (0.0-0.06); Absolute Basophil Count 0.05 10^3/uL (0.0-0.2); Absolute Eosinophil Count 0.37 10^3/uL (0.0-0.7); Absolute Lymphocyte Count 1.68 10^3/uL (1.2-3.4); Absolute Monocyte Count 0.59 10^3/uL (0.1-0.8); Absolute Neutrophil Count 7.02 10^3/uL (1.2-6.7); Basophils % 0.5 %; Eosinophils % 3.8 %; HCT 40.8 % (36.0-46.0); HGB 13.5 g/dL (11.2-15.7); Immature Grans % 0.4 %; Lymphocytes % 17.2 %; MCH 29.9 pg (27.0-33.0); MCHC 33.1 % (32.0-36.0); MCV 91 fL (80-95); MPV 9.8 fL (8.0-11.0); Monocytes % 6.1 %; Platelet Count 273 10^3/uL (130-400); RBC 4.51 10^6/uL (3.93-5.22); RDW 13.4 % (11.7-14.6); RDW-SD 44.7 fL; WBC 9.75 10^3/uL (4.4-10.8)
[2024-04-18 14:49] LABS: ALT 45 U/L (14-59); AST 28 U/L (15-37); Albumin 3.6 g/dL (3.4-5.0); Alkaline Phosphatase 89 U/L (46-116); Anion Gap 11.9 mmol/L (3-11); BUN 35 mg/dL (7-18); Bilirubin, Total 0.64 mg/dL (0.2-1.0); CO2 26.1 mmol/L (21.0-32.0); CREATININE 1.6 mg/dL (0.55-1.02); Calcium 9.4 mg/dL (8.5-10.1); Chloride 103 mmol/L (98-107); Estimated GFR 32.81 (mL/min/1.73m2); Glucose 111 mg/dL (74-106); Lipase 42 U/L (16-77); Potassium 3.6 mmol/L (3.5-5.1); Sodium 141 mmol/L (136-145); Total Protein 7.2 g/dL (6.4-8.2)
[2024-04-18] MEDS: Omnipaque 350 MG/ML 100 ML BTL IJ (15:10)
[2024-04-18] MEDS: Normal Saline - Diluent 50 ML VIAL IV (15:13)
--- NOTE | 2024-04-18 15:59 | DI.VRAD_ITS ---
PROCEDURE INFORMATION: Exam: CT Abdomen And Pelvis With Contrast Exam date and time: 04/18/2024 3:14 PM Age: 78 years old Clinical indication: Constipation; Prior surgery; Surgery date: 3-7 days post-operative; Surgery type: Cholecystectomy TECHNIQUE: Imaging protocol: Computed tomography of the abdomen and pelvis with contrast. Contrast material: OMNIPAQUE 350; Contrast volume: 100 ml; Contrast route: INTRAVENOUS (IV); COMPARISON: CT ABDOMEN PELVIS W 03/24/2024 8:29 PM FINDINGS: Lungs: Atelectatic changes in both lung bases. Liver: Normal. No mass. Gallbladder and biliary ducts: Post cholecystectomy. Pancreas: Normal. No ductal dilation. Spleen: Normal. No splenomegaly. Adrenal glands: Normal. No mass. Kidneys and ureters: Normal. No hydronephrosis. Stomach and bowel: Above average fecal loading in the rectum with mild perirectal fat stranding. Appendix: The appendix is not visualized to be correlated with surgical history. Intraperitoneal space: Unremarkable. No free air. No significant fluid collection. Vasculature: Vascular calcifications. Lymph nodes: Unremarkable. No enlarged lymph nodes. Urinary bladder: Unremarkable as visualized. Reproductive: Unremarkable as visualized. Bones/joints: Severe degenerative disease of the symphysis pubis and bilateral sacroiliac joints. Mild degenerative disease of bilateral hip joints. Soft tissues: Mild fat stranding and skin thickening of the belly button. IMPRESSION: Findings worrisome for stercoral colitis. Above average fecal loading in the rectum. Dictated and Authenticated by: Deepak Alejandro MD. Ordering:LUIS FERNANDO Velez MD
[2024-04-18] MEDS: Magnesium Citrate 300 ML BTL 150 ML PO (17:55)
[2024-04-18 18:57] VITALS: BP 127/68; PULSE 64; RESP 16; TEMP 36.5; O2SAT 98
== END 2024-04-18 18:57 | disposition home or self-care (01) ==
PROVIDERS: Emergency Provider Emergency Medicine; PCP Nurse Practitioner Family
DX: K59.00 Constipation, unspecified (principal); R11.2 Nausea with vomiting, unspecified; E11.22 Type 2 diabetes mellitus with diabetic chronic kidney disease; I12.9 Hypertensive chronic kidney disease with stage 1 through stage 4 chronic kidney disease, or unspecified chronic kidney disease; N18.30 Chronic kidney disease, stage 3 unspecified; I48.0 Paroxysmal atrial fibrillation; Z90.49 Acquired absence of other specified parts of digestive tract; Z79.01 Long term (current) use of anticoagulants; Z79.84 Long term (current) use of oral hypoglycemic drugs
CPT/HCPCS: 80053; 83690; 96361; 96374; 99285; 74177; 85025; 99284; J2405; J3490

== ENCOUNTER → 2024-04-22 14:16 | Outpatient (BNVA) | payer OTHER, SELFPAY | PROVIDERS: PCP Nurse Practitioner Family; Referring Provider Nurse Practitioner Family; Visit Provider Surgery | DX: Z48.815 Encounter for surgical aftercare following surgery on the digestive system (principal); Z90.49 Acquired absence of other specified parts of digestive tract ==

== ENCOUNTER 2024-09-29 12:33 | Outpatient (CLI) | payer MEDICARE, SELFPAY ==
--- NOTE | 2024-09-29 08:45 | DI.RAD_ITS ---
Exam(s) XR KNEE RT 3V AP,LAT,SUKUMAR EXAM: XR KNEE RT 3V AP,LAT,SUKUMAR CLINICAL HISTORY: M25.561 Right knee pain for 2 weeks. TECHNIQUE: 2D digital imaging was performed. Three views. COMPARISON: No exams were available for comparison FINDINGS: BONES: No acute fracture is present. No bony destructive lesion is seen. JOINTS: The knee is normally aligned. No joint effusion is seen. Mild lateral femoral tibial joint space narrowing. Mild periarticular spurring. SOFT TISSUE: Vascular calcifications. IMPRESSION: Mild degenerative changes. DATA REPOSITORY: RADIATION DOSE DELIVERED:
== END 2024-09-29 12:53 ==
LOC: DI 12:34
PROVIDERS: PCP Nurse Practitioner Family; Visit Provider Nurse Practitioner Family
DX: M25.561 Pain in right knee (principal)
CPT/HCPCS: 73562

== ENCOUNTER 2024-11-30 15:53 | Outpatient (CLI) | payer MEDICARE, SELFPAY ==
--- NOTE | 2024-11-30 15:26 | DI.RAD_ITS ---
Exam(s) XR FOOT RT COMPLETE EXAM: XR FOOT RT COMPLETE CLINICAL HISTORY: atraumatic, ?gout, RT FOOT PAIN, M79.671. TECHNIQUE: 2D digital imaging was performed. Three views. COMPARISON: No exams were available for comparison FINDINGS: BONES: No acute fracture is present. Erosions seen at the base of the proximal phalanx of the 1st to e also small erosion at the medial aspect of the 1st metatarsal head. Prominent plantar calcaneal sp ur. Small enthesophyte at the Achilles insertion. JOINTS: No dislocation present. SOFT TISSUE: Normal soft tissue swelling at the medial aspect of the 1st MTP joint and dorsum of foot . Faint adjacent calcifications. Vascular calcifications also present. IMPRESSION: Small erosions noted at the medial 1st MTP joint with surrounding soft tissue swelling and mild calci fication suspicious for gout. DATA REPOSITORY: RADIATION DOSE DELIVERED:
[2024-11-30 22:08] LABS: Abs Immature Grans 0.03 10^3/uL (0.0-0.06); Absolute Basophil Count 0.08 10^3/uL (0.0-0.2); Absolute Eosinophil Count 0.24 10^3/uL (0.0-0.7); Absolute Lymphocyte Count 2.41 10^3/uL (1.2-3.4); Absolute Monocyte Count 0.72 10^3/uL (0.1-0.8); Absolute Neutrophil Count 7.07 10^3/uL (1.2-6.7); Basophils % 0.8 %; Eosinophils % 2.3 %; HCT 42.6 % (36.0-46.0); HGB 13.9 g/dL (11.2-15.7); Immature Grans % 0.3 %; Lymphocytes % 22.8 %; MCH 30.2 pg (27.0-33.0); MCHC 32.6 % (32.0-36.0); MCV 92 fL (80-95); MPV 10.3 fL (8.0-11.0); Monocytes % 6.8 %; Platelet Count 302 10^3/uL (130-400); RBC 4.61 10^6/uL (3.93-5.22); RDW 14.1 % (11.7-14.6); RDW-SD 48.2 fL; WBC 10.55 10^3/uL (4.4-10.8)
[2024-11-30 22:20] LABS: Anion Gap 11.2 mmol/L (3-11); BUN 25 mg/dL (7-18); CO2 26.8 mmol/L (21.0-32.0); CREATININE 1.4 mg/dL (0.55-1.02); Calcium 9.4 mg/dL (8.5-10.1); Chloride 105 mmol/L (98-107); Estimated GFR 38.27 (mL/min/1.73m2); Glucose 111 mg/dL (74-106); Potassium 3.7 mmol/L (3.5-5.1); Sodium 143 mmol/L (136-145); Uric Acid 7.9 mg/dL (2.6-6.0)
[2024-11-30 22:44] LABS: Calculated LDL 86 mg/dL (<100); Cholesterol 171 mg/dL (<200); HDL Cholesterol 46 mg/dL (>or=50); Triglyceride 198 mg/dL (<150)
== END 2024-11-30 15:54 | disposition home or self-care (01) ==
LOC: DI 15:53 → LBN 21:47
PROVIDERS: PCP Nurse Practitioner Family; Visit Provider Nurse Practitioner Family
DX: M79.671 Pain in right foot (principal); E11.9 Type 2 diabetes mellitus without complications
CPT/HCPCS: 80048; 80061; 73630; 84550; 85025

== ENCOUNTER 2025-03-03 10:27 | Outpatient (CLI) | payer MEDICARE, SELFPAY ==
--- NOTE | 2025-03-03 10:00 | DI.RAD_ITS ---
Exam(s) XR KNEE RT 3V AP,LAT,SUKUMAR EXAM: XR KNEE RT 3V AP,LAT,SUKUMAR CLINICAL HISTORY: worsening pain since fall M25.561 PAIN RT KNEE. TECHNIQUE: 2D digital imaging was performed of the right knee. Three views obtained. AP, lateral and PA tunnel views were obtained. COMPARISON: CR XR KNEE RT 3V AP,LAT,SUKUMAR from 09/29/2024 FINDINGS: BONES: No acute fracture is present. No bony destructive lesion is seen. JOINTS: There is narrowing of the lateral femoral tibial joint. There is a small joint effusion. SOFT TISSUE: Atherosclerotic calcifications are present in the soft tissues. IMPRESSION: No acute fracture or dislocation. DATA REPOSITORY: RADIATION DOSE DELIVERED:
== END 2025-03-03 10:47 ==
LOC: DI 10:27
PROVIDERS: PCP Nurse Practitioner Family; Visit Provider Nurse Practitioner Family
DX: M25.561 Pain in right knee (principal)
CPT/HCPCS: 73562

== ENCOUNTER → 2025-03-08 09:22 | Outpatient (BNVA) | payer MEDICARE, SELFPAY | PROVIDERS: PCP Nurse Practitioner Family; Visit Provider Internal Medicine Cardiovascular Disease | DX: I48.0 Paroxysmal atrial fibrillation (principal); Z79.01 Long term (current) use of anticoagulants | CPT/HCPCS: 99213 ==

== ENCOUNTER 2025-05-25 16:44 | Outpatient (CLI) | payer MEDICARE, SELFPAY ==
[2025-05-25 17:07] LABS: INR 2.0 (0.9-1.1); Prothrombin Time 18.9 sec (9.1-11.1)
== END 2025-05-25 16:45 | disposition home or self-care (01) ==
LOC: LBO 16:45
PROVIDERS: PCP Nurse Practitioner Family; Visit Provider Nurse Practitioner Family
DX: Z79.01 Long term (current) use of anticoagulants (principal)
CPT/HCPCS: 36415; 85610